=== PATIENT | male | born 1965 | race Caucasian/White ===

== ENCOUNTER 2017-11-09 08:34 | Outpatient (RCR) | payer OTHER, SELFPAY | END 2017-11-27 23:59 | LOC: NS 08:34 | PROVIDERS: Family Provider Family Medicine; PCP Family Medicine; Visit Provider Nurse Practitioner Family | DX: E78.2 Mixed hyperlipidemia (principal); E66.9 Obesity, unspecified; Z68.30 Body mass index [BMI] 30.0-30.9, adult; Z71.3 Dietary counseling and surveillance | CPT/HCPCS: 97802 ==

== ENCOUNTER 2017-12-28 15:30 | Outpatient (RCR) | payer OTHER, SELFPAY | END 2017-12-28 23:59 | LOC: NS 15:30 | PROVIDERS: Family Provider Family Medicine; PCP Family Medicine; Visit Provider Nurse Practitioner Family | DX: E78.2 Mixed hyperlipidemia (principal); E66.9 Obesity, unspecified; Z68.30 Body mass index [BMI] 30.0-30.9, adult; Z71.3 Dietary counseling and surveillance | CPT/HCPCS: 97803 ==

== ENCOUNTER 2018-01-10 15:03 | Outpatient (RCR) | payer OTHER, SELFPAY | END 2018-01-27 23:59 | LOC: NS 15:03 | PROVIDERS: Family Provider Family Medicine; PCP Family Medicine; Visit Provider Nurse Practitioner Family | DX: E66.9 Obesity, unspecified (principal); Z68.30 Body mass index [BMI] 30.0-30.9, adult; E78.2 Mixed hyperlipidemia; Z71.3 Dietary counseling and surveillance | CPT/HCPCS: 97803 ==

== ENCOUNTER → 2018-01-26 08:52 | Outpatient (CLI) | payer OTHER, SELFPAY ==
--- NOTE | 2018-01-26 08:54 | RAD_ITS ---
STUDY: X-RAY - RIGHT KNEE REASON FOR EXAM: Male, 53 years old. Pain. Previous surgery. TECHNIQUE: 4 view(s) of the knee. COMPARISON: None. FINDINGS: Normal visualized distal femur. Normal visualized proximal tibia and fibula. Normal proximal tibiofibular articulation. There is no demonstrated fracture. There are changes from previous ACL graft repair. There is mild degenerative arthrosis of the medial femorotibial compartment. Normal lateral femorotibial compartment. Normal patellofemoral articulation. There is no demonstrated joint effusion. The soft tissue structures are unremarkable. RAD/Knee 4 or More Views IMPRESSION: No acute fracture or dislocation. Surgical changes from previous ACL graft. Minimal degenerative changes. Electronically Signed: Ori Viera MD at 9:52 EDT , Service support ,
== END ==
PROVIDERS: Family Provider Family Medicine; PCP Family Medicine; Visit Provider Orthopaedic Surgery
DX: M25.561 Pain in right knee (principal)
CPT/HCPCS: 73564

== ENCOUNTER → 2018-02-03 08:18 | Outpatient (CLI) | payer OTHER, SELFPAY ==
[2018-02-03 09:19] LABS: AST(SGOT) 62 U/L (15-37); Alanine Aminotransfer ALT/SGPT 103 U/L (16-61); Albumin, Serum 3.6 g/dL (3.2-5.0); Alkaline Phosphatase 71 U/L (45-117); Bilirubin, Direct 0.13 mg/dL (0.00-0.30); Cholesterol 174 mg/dL (200); Globulin 3.3 g/dL (2.2-4.2); High Density Lipoprotein 36 mg/dL; Protein, Total 6.9 g/dL (6.4-8.2); Triglycerides 260 mg/dL; Very Low Density Lipoprotein 52 mg/dL (5-40)
== END ==
PROVIDERS: Family Provider Family Medicine; PCP Family Medicine; Visit Provider Nurse Practitioner Family
DX: E78.5 Hyperlipidemia, unspecified (principal); Z79.899 Other long term (current) drug therapy
CPT/HCPCS: 36415; 80061; 80076

== ENCOUNTER → 2018-03-08 09:40 | Outpatient (CLI) | payer OTHER, SELFPAY ==
[2018-03-08 12:23] LABS: Absolute Lymphocyte Count 2.48 X10^3/ul (0.83-4.51); Absolute Neutrophil Count 2.5 X10^3/uL (2.0-7.7); Basophil# 0.01 X10^3/uL; Basophil% 0.2 % (0-1); Eosinophil# 0.13 X10^3/uL; Eosinophils% 2.4 % (0-5); Hematocrit 52.3 % (40-54); Hemoglobin 18.2 g/dl (13.0-16.5); Lymphocyte # 2.48 X10^3/ul (4.0); Lymphocyte % 45.3 % (19-41); Mean Corp Hgb Conc 34.8 g/gl (32-36); Mean Corpuscular Hgb 32.2 pg (27.0-32.0); Mean Corpuscular Volume 92.4 fL (80-94); Mean Platelet Vol. 10.6 fl (6.2-12.0); Monocyte# 0.41 X10^3/uL; Monocyte% 7.5 % (0-10); Neutrophil # 2.45 X10^3/uL (2.7-7.7); Neutrophil % 44.6 % (47-70); Platelet Count 166 K/mm3 (150-450); RBC Distribution Width CV 12.1 % (11.6-14.6); RBC Distribution Width SD 40.5 fl (35.1-43.9); Red Blood Count 5.66 M/mm3 (4.6-6.2); White Blood Count 5.5 K/mm3 (4.4-11.0)
[2018-03-08 12:29] LABS: POSITIVE COUNT NO; POSITIVE DIFFERENTIAL NO; POSITIVE MORPHOLOGY NO
[2018-03-08 12:35] LABS: ALB/GLOB Ratio 1.2 RATIO (0.9-2.4); AST(SGOT) 42 U/L (15-37); Alanine Aminotransfer ALT/SGPT 91 U/L (16-61); Alkaline Phosphatase 68 U/L (45-117); Anion Gap 11 (5-15); BUN 11 mg/dL (7-18); BUN/Creat Ratio 11.2 RATIO (10-20); Calcium,Total 8.6 mg/dL (8.5-10.1); Chloride 104 mmol/L (98-107); Creatinine, Serum 0.98 mg/dL (0.70-1.30); EST Glomerular Filtration Rate 85 mL/min (>60); Est Glom Filt Rate - Afr Amer 102 mL/min (>60); Ferritin 79 ng/mL (26-388); Globulin 3.3 g/dL (2.2-4.2); Glucose 96 mg/dL (74-106); Iron 155 ug/dL (65-175); PSA,Total - Annual Screen 0.97 ng/mL (0.00-4.00); Potassium 4.2 mmol/L (3.5-5.1); Protein, Total 7.3 g/dL (6.4-8.2); Sodium Level 142 mmol/L (136-145)
== END ==
PROVIDERS: Family Provider Family Medicine; PCP Family Medicine; Visit Provider Family Medicine
DX: Z00.01 Encounter for general adult medical examination with abnormal findings (principal); R74.8 Abnormal levels of other serum enzymes; E83.119 Hemochromatosis, unspecified; I10 Essential (primary) hypertension; Z78.9 Other specified health status; Z12.5 Encounter for screening for malignant neoplasm of prostate
CPT/HCPCS: 36415; 80053; 82728; 83540; 84153; 85025; G0103

== ENCOUNTER → 2018-10-26 06:21 | Outpatient (CLI) | payer OTHER, SELFPAY ==
[2018-09-27 11:11] VITALS: BMI 32.1
--- NOTE | 2018-10-26 08:55 | STRESSREP ---
Stress Test Report Date: 10-26-18 Procedure: Exercise tolerance test/imaging study Indications: Chest pain; CAD; PCI Consent: Per the patient Procedure: The patient exercised on a Dariel protocol for 11 minutes completing Stage III and 2 minutes of Stage IV achieving a peak heart rate of 142 bpm (86 % predicted maximal heart rate) with a peak blood pressure 168/90 mmHg and a peak MET capacity of 13 METs. The baseline ECG demonstrated normal sinus rhythm. The peak exercise ECG demonstrated approximately 1-[address] segment depression in leads II, III, aVF and approximately [address] segment depression in lead V6 with resolution towards baseline beginning less than 1 minute in recovery. There were occasional PACs in recovery. The functional capacity was considered good. There was no complaint of chest discomfort during exercise or recovery. The examination was discontinued secondary to leg discomfort. Impression: 1. Technically adequate (percent predicted maximal heart rate greater than 85%) exercise tolerance test 2. Peak exercise ECG demonstrated approximately 1-[address] segment depression in leads II, III, aVF, and approximately [address] segment depression in lead V6 with resolution towards baseline beginning less than 1 minute in recovery 3. There were occasional PACs in recovery 4. Nuclear images pending Myocardial perfusion imaging study: Technique: The patient was injected with 13.7 mCi of technetium 99m Cardiolite and subsequently rest SPECT Cardiolite nuclear imaging was obtained in the horizontal long, vertical long, and short axis views. The patient exercised on a Dariel protocol for 11 minutes completing Stage III and 2 minutes of Stage IV achieving a peak heart rate of 142 bpm (86 % predicted maximal heart rate) with a peak blood pressure 168/90 mmHg and a peak MET capacity of 13 METs. The patient was injected with 44.4 mCi of technetium 99m Cardiolite and subsequently stress SPECT Cardiolite nuclear imaging was obtained in the horizontal long, vertical long, and short axis views. A gated Cardiolite study at peak stress was obtained. Interpretation: Rest and stress SPECT Cardiolite nuclear imaging status post realignment, normalization, and attenuation correction, demonstrates the appearance of relative uniform tracer uptake and myocardial perfusion appearing within normal limits. There is end systolic thickening and brightening. The gated Cardiolite study demonstrates myocardial thickening and inward wall motion. The reported LVEF is 62 %. Impression: 1. Rest and stress SPECT Cardiolite nuclear imaging demonstrate relative uniform tracer uptake and myocardial perfusion appearing within normal limits. 2. The gated Cardiolite study reports an LVEF of 62 %. This note was generated with [employer] software. It may contain incorrect words, spelling, and punctuation that were not noted in checking the note before signing.
== END ==
PROVIDERS: Family Provider Family Medicine; PCP Family Medicine; Referring Provider Internal Medicine Cardiovascular Disease; Visit Provider Internal Medicine Cardiovascular Disease
DX: I25.10 Atherosclerotic heart disease of native coronary artery without angina pectoris (principal); R07.9 Chest pain, unspecified; Z98.61 Coronary angioplasty status
CPT/HCPCS: 78452; 93017; A9500; A4216

== ENCOUNTER 2018-11-06 09:04 | Day surgery (SDC) | payer OTHER, SELFPAY ==
[2018-09-27 11:11] VITALS: BMI 32.1
[2018-11-01 10:29] VITALS: BMI 32.1
--- NOTE | 2018-11-01 10:45 | RAD_ITS ---
STUDY: X-RAY CHEST REASON FOR EXAM: Male, 53 years old. Chest pain and abnormal stress. TECHNIQUE: PA and lateral views of the chest. COMPARISON: Prior comparison studies are not available for review at this time. FINDINGS: There is mild elevation of the right hemidiaphragm. The lungs are clear and expanded. There is no demonstrated pleural abnormality. Normal size heart. Normal mediastinum and fred. Normal visualized pulmonary arteries. Normal visualized aortic arch and descending thoracic aorta. Normal visualized thoracic spine. Normal visualized ribs, clavicles, and shoulders. There is no demonstrated abnormality of the visualized soft tissue structures of the upper abdomen. RAD/Chest PA and Lateral IMPRESSION: No active pulmonary disease. Electronically Signed: Gregorio Villeda MD at 10:57 EDT Tel , Service support ,
[2018-11-01 12:23] LABS: Hematocrit 53.1 % (40-54); Mean Corp Hgb Conc 35.8 g/gl (32-36); Mean Corpuscular Hgb 32.1 pg (27.0-32.0); Mean Corpuscular Volume 89.7 fL (80-94); Mean Platelet Vol. 10.5 fl (6.2-12.0); Platelet Count 160 K/mm3 (150-450); RBC Distribution Width SD 38.6 fl (35.1-43.9); Red Blood Count 5.92 M/mm3 (4.6-6.2); White Blood Count 5.6 K/mm3 (4.4-11.0)
[2018-11-01 12:32] LABS: International Normalized Ratio 0.9; Prothrombin Time (Protime)PT. 12.4 SECONDS (11.7-14.9)
[2018-11-01 12:33] LABS: Anion Gap 9 (5-15); BUN 12 mg/dL (7-18); BUN/Creat Ratio 13.1 RATIO (10-20); Calcium,Total 9.1 mg/dL (8.5-10.1); Chloride 103 mmol/L (98-107); Creatinine, Serum 0.92 mg/dL (0.70-1.30); EST Glomerular Filtration Rate 91 mL/min (>60); Est Glom Filt Rate - Afr Amer 110 mL/min (>60); Glucose 95 mg/dL (74-106); Partial Thromboplast Time 25.2 Seconds (24.1-36.2); Sodium Level 138 mmol/L (136-145)
[2018-11-01 12:37] LABS: Scan Indicated on CBC? Y/N NO
--- NOTE | 2018-11-02 08:47 | HP_ITS ---
HPI HPI Surgical H&P: Yes Details: STEFANIE CARLSON, is a 52 M who presents to the office today for a cardiovascular outpatient follow-up. Patient has a history of coronary artery disease status post PTCA/stent to the RCA in August 2003, hyperlipidemia, and moderate SAVANNAH. After last office appointment on 10/25/18, he underwent a stress test to further evaluate of his chest pain. This showed ST segment depression in leads II, III, aVF and approximately [address] segment depression in lead V6 with resolution towards baseline beginning less than 1 minute into recovery. Because of this, he will undergo a left heart catheterization for further evaluation. He continues with intermittent chest tightness. He states occasional shortness of breath with activity. He denies lightheadedness, dizziness, syncope, or presyncope. He denies any edema or claudication. He denies any orthopnea, PND, fever, chills, blood in urine, blood in stool, myalgia, or worsening fatigue. He states having an episode of feeling very flushed and warm while at a meeting. He states that those present in room noticed that he looked very red. This lasted for less than a minute and completely resolved. He attributes this to hypoglycemia as he has been doing intermittent fasting to help improve his overall weight. 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 Accompanied by: None Is patient in pain?: No Allergies ciprofloxacin [From Cipro] Allergy (Verified 11/01/18 09:50) Rash ciprofloxacin HCl [From Cipro] Allergy (Verified 11/01/18 09:50) Rash naproxen [From Naprosyn] Allergy (Verified 11/01/18 09:50) Hives amoxicillin [From Augmentin] Adverse Reaction (Severe, Verified 11/01/18 09:50) Hives clavulanic acid [From Augmentin] Adverse Reaction (Severe, Verified 11/01/18 09:50) Hives codeine Adverse Reaction (Intermediate, Verified 11/01/18 09:50) Nausea CIPRO Allergy (Uncoded 11/01/18 09:50) Rash Medications Duloxetine Hcl [Cymbalta] 60 mg PO DAILY 07/22/15 [History Confirmed 11/01/18] Aspirin [Aspirin, Baby] 81 mg PO DAILY@0800 07/26/16 [History Confirmed 11/01/18] nitroglycerin 0.4 mg sublingual tablet 0.4 mg SUBLINGUAL Q5M PRN 10/04/17 [History Confirmed 11/01/18] lisinopril 20 mg tablet 20 mg PO DAILY #90 tab 05/03/18 [Rx Confirmed 11/01/18] metoprolol tartrate 25 mg tablet 25 mg PO BID #180 tab 05/03/18 [Rx Confirmed 11/01/18] emollient combination no.43 topical cream 1 applic TOPICAL DAILY PRN g 09/27/18 [History Confirmed 11/01/18] atorvastatin 80 mg tablet 80 mg PO QHS #30 tab 11/01/18 [Rx] clopidogrel 75 mg tablet 75 mg PO DAILY #30 tab 11/01/18 [Rx Confirmed 11/01/18] PFSH Medical History Chest pain (Acute) Presence of stent in coronary artery (Chronic ~09/15/03) Essential hypertension (Chronic) Obesity (BMI 30.0-34.9) (Chronic) Hyperlipidemia (Chronic) Atherosclerotic heart disease of [place] coronary artery without angina pectoris (Chronic) Chest discomfort (Acute) CAD (coronary artery disease) (Inactive) Surgical History History of percutaneous transluminal coronary angioplasty (Chronic ~09/15/03) H/O reconstruction of anterior cruciate ligament tear (Resolved) History of bilateral inguinal hernia repair (Resolved ~1976) History of tonsillectomy and adenoidectomy (Resolved ~1970) Status post anal fissurectomy (Resolved) Family History Father CAD (coronary artery disease) Diabetes HLD (hyperlipidemia) Hypertension Mother Breast cancer Cancer liver cancer Sister Lichen sclerosus Social History Smoking Status: Former smoker how long ago did patient quit smokin alcohol intake: current alcohol intake frequency: 0-2 drinks per day Alcohol type: beer, wine, hard liquor substance use type: does not use caffeine: Yes Type: coffee Number of servings: 1 what type of physical activity do you participate in: none seatbelt use: always do you feel safe at home: Yes ROS Const Const: Negative for fatigue, weakness, frequent falls, excessive sweating, weight gain or weight loss Eyes Eyes: Negative for transient loss of vision, blurry vision or change in vision ENT ENT: Negative for dizziness or balance problems Cardio Chest Pain: Yes Character: squeezing Onset: exercise Location: left chest Duration: brief Palpitations: No Edema: None Muscle aches with walking: None Resp Respiratory: Positive for SOB with activity (occasional); negative for SOB at rest Additional Details: CPAP @ night GI GI: Negative vomiting or vomiting blood/hematemesis : Negative for hematuria Musc Musc: Negative for balance problems Skin Skin: Negative non-healing lesions or rash Neuro Neuro: Negative for dizziness, frequent falls, weakness or blurry vision Fausto Hematologic/Lymphatic: Negative for easy bleeding Endo Endo: Negative for fatigue or excessive sweating Psych Psych: Negative for anxiety or depression Allergy Allergy/Immunology: Negative for rash Cardiology Exam Const Appearance: cooperative, healthy appearing, comfortable and no acute distress Nutritional Appearance: well nourished and obese Orientation: alert, awake and oriented x3 Head Head: normal to inspection Ears: hearing grossly normal bilaterally Nose: external nose normal Face and Sinus: face symmetric Mouth: oral mucosae normal Eyes General: appearance normal, both eyes and all related structures Eyelids: eyelids normal EOM: EOM intact bilaterally Neck Neck: normal visual inspection and no JVD Carotids: normal carotid upstroke Chest Chest inspection: normal inspection of the chest, symmetric chest movement and normal respiratory effort; negative cough Auscultation: Bilateral: Clear to Auscultation Cardio Rate: regular rate Rhythm: regular rhythm Heart sounds: S1 normal and S2 normal; negative rub, gallop or murmur GI GI: normal to inspection and obese Neuro General: alert, awake, oriented x3 and CN's II-XI intact bilaterally Skin Skin: no rashes or lesions noted Extremities Pulses: Normal: Right Posterior Tibial Pulse, Left Posterior Tibial Pulse, Right Radial Pulse, Left Radial Pulse Lower Extremity Edema: None: Bilateral Psych Psychological: normal affect Assessment & Plan 1. Atherosclerosis of [place] coronary artery of [place] heart without angina pectoris I25.10 Plan With patient's ongoing chest pain and recent stress test results, there is concern for progressive coronary artery disease. He will proceed left heart catheterization for further evaluation. Due to beginning Plavix less than 7 days he will begin a loading dose with 300 mg on day 1 and begin Plavix 75 mg p.o. daily on day 2. Further recommendation will be made based on results of his heart catheterization. 2. Presence of stent in coronary artery Z95.5 PTCA/stent of the prox RCA and posterolateral branch of the RCA 09/15/03 Plan This will be reevaluated during his upcoming heart catheterization. He will continue with current medications. 3. Essential hypertension I10 Plan Patient's blood pressure is well-controlled. We will continue to monitor this. We will not make any medication regimen changes. 4. Mixed hyperlipidemia E78.2 Plan Lipid panel from January 2018 showed cholesterol: 174, HDL: 36, LDL: 86, and triglyceride: 260. He will continue the current high-dose statin medication. Plan Detail Other Medications New: clopidogrel 75 mg PO DAILY 30 tabs 11RF Additional Comments Thank you for allowing us to participate in the patient's plan of care, if you have any questions please do not hesitate to call. This note was generated using a voice recognition system and there may be incorrect words, spelling, or punctuation that were not noted upon reviewing the office note prior to saving. Coding Level of Care Code Off vis,est,level 3 Diagnoses Atherosclerosis of [place] coronary artery of [place] heart without angina pectoris I25.10 ??[place] vs. transplanted heart: [place] heart Presence of stent in coronary artery Z95.5 Essential hypertension I10 Mixed hyperlipidemia E78.2 ??Hyperlipidemia type: mixed hyperlipidemia Coding Level of Care Code Off vis,est,level 3 Diagnoses Atherosclerosis of [place] coronary artery of [place] heart without angina pectoris I25.10 ??[place] vs. transplanted heart: [place] heart Presence of stent in coronary artery Z95.5 Essential hypertension I10 Mixed hyperlipidemia E78.2 ??Hyperlipidemia type: mixed hyperlipidemia Supplemental Info Supplemental Information Transthoracic echocardiogram: 02/14/2006 1. Normal left ventricular size, wall motion and systolic function. 2. Estimated LVEF approximately 60%. 3. Mild concentric left ventricular hypertrophy. 4. Trivial mitral regurgitation. 5. Trivial tricuspid regurgitation. Stress test: 10/26/2018 The patient exercised on a Dariel protocol for 11 minutes completing Stage III and 2 minutes of Stage IV achieving a peak heart rate of 142 bpm (86 % predicted maximal heart rate) with a peak blood pressure 168/90 mmHg and a peak MET capacity of 13 METs. The baseline ECG demonstrated normal sinus rhythm. The peak exercise ECG demonstrated approximately 1-[address] segment depression in leads II, III, aVF and approximately [address] segment depression in lead V6 with resolution towards baseline beginning less than 1 minute in recovery. There were occasional PACs in recovery. The functional capacity was considered good. There was no complaint of chest discomfort during exercise or recovery. The examination was discontinued secondary to leg discomfort. Impression: 1. Technically adequate (percent predicted maximal heart rate greater than 85%) exercise tolerance test 2. Peak exercise ECG demonstrated approximately 1-[address] segment depression in leads II, III, aVF, and approximately [address] segment depression in lead V6 with resolution towards baseline beginning less than 1 minute in recovery 3. There were occasional PACs in recovery 4. Nuclear images pending Myocardial perfusion imaging study: Technique: The patient was injected with 13.7 mCi of technetium 99m Cardiolite and subsequently rest SPECT Cardiolite nuclear imaging was obtained in the horizontal long, vertical long, and short axis views. The patient exercised on a Dariel protocol for 11 minutes completing Stage III and 2 minutes of Stage IV achieving a peak heart rate of 142 bpm (86 % predicted maximal heart rate) with a peak blood pressure 168/90 mmHg and a peak MET capacity of 13 METs. The patient was injected with 44.4 mCi of technetium 99m Cardiolite and subsequently stress SPECT Cardiolite nuclear imaging was obtained in the horizontal long, vertical long, and short axis views. A gated Cardiolite study at peak stress was obtained. Interpretation: Rest and stress SPECT Cardiolite nuclear imaging status post realignment, normalization, and attenuation correction, demonstrates the appearance of relative uniform tracer uptake and myocardial perfusion appearing within normal limits. There is end systolic thickening and brightening. The gated Cardiolite study demonstrates myocardial thickening and inward wall motion. The reported LVEF is 62 %. Impression: 1. Rest and stress SPECT Cardiolite nuclear imaging demonstrate relative uniform tracer uptake and myocardial perfusion appearing within normal limits. 2. The gated Cardiolite study reports an LVEF of 62 %. Cardiac catheterization: 09/15/2003 Left main coronary artery reported is free of significant disease Left anterior descending coronary artery reporting does have a mid 30 to 40% plaque Left circumflex coronary artery reporting as having an AV groove branch with 40 to 50% stenosis Intermediate ramus coronary artery reporting as having mild irregularities Right coronary artery reported as having proximal 90% stenosis and the posterolateral branch with an eccentric 75% stenosis Left ventricle reported as normal with an LVEF of 75% PCI: 09/15/2003 PCI/stent of the proximal RCA and PCI/stent of the posterior lateral branch Labs LDL Cholesterol 86 mg/dL (0-130) 02/03/18 HDL Cholesterol 36 mg/dL (40-) L 02/03/18 Triglycerides 260 mg/dL (-199) H 02/03/18 VLDL Cholesterol 52 mg/dL (5-40) H 02/03/18 Diagnostics Electrocardiogram 09/27/18 Stress Test Nuclear Medicine 10/26/18 Stress Test 10/26/18 Chest X-Ray 11/01/18
[2018-11-05 10:27] VITALS: BMI 31.6
[2018-11-06] VITALS (28 sets, daily range): BP systolic 90–160; BP diastolic 57–91; PULSE 59–90; RESP 12–24; TEMP 35.6–36.7; O2SAT 90–100; BMI 32.1
--- NOTE | 2018-11-06 11:23 | CL.I_ITS ---
Patient Name: STEFANIE CARLSON Study Date: 11/06/2018 Performing: Wayne Paula MD Ht: 70.86 inches 180 cm : 1965 Wt: 227.08 lbs 103 kg Age: 53 Gender: male BSA: 2.22 PROCEDURE(S) PERFORMED [id number] W OR WO PTCA, SINGLE CORONARY ARTERY CLINICAL PROFILE AND CO-MORBIDITIES Indications: Worsening Angina, New Onset Angina <= 2 months, Stable Known CAD Heart Failure: None Stress/Imaging Standard Exercise Stress Test: Yes Result: Positive Stress Test with SPECT MPI: Po sitive Low Risk Angina Classification Anginal Classification w/in 2 Weeks: CCS II CAD Presentations: Stable angina. Unstable angina. Comorbidities/Risk Factors: Hypertension Dyslipidemia Prior PCI CONCLUSIONS Successful PTCA/ISRRAEL proximal PL branch of RCA with a 3.0 x 12 Promus Synergy, post dilated throughout both stents with a 3.25 x 8 NC Balloon; 85%-->0%, no dissection. 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 Kelly Manual sheath removal given pt's shallow groin. Consider PCI of mid moderately calcified LCX if pt has recurrent anginal symptoms. DESCRIPTION OF PROCEDURE The patient arrived to the procedure lab. The risks and benefits of the procedure as well as a full d escription of our services here and current unavailability of surgical backup were fully explained to the patient and/or their significant other prior to the catheterization. The Timeout was completed, verifying the correct patient and procedure. The patient's procedural site was prepped and draped in the usual fashion. Local anesthetic was given subcutaneously to right groin region with Lidocaine 2% Using a modified Seldinger technique,arterial access was obtained via the right femoral artery, a 4Fr sheath was inserted Left Coronary Artery selective angiography was performed in multiple views using a 4 Fr. JL5 catheter. Right Coronary Artery selective angiography was then performed in multiple vie ws using a 4 Fr. 3DRC catheter. Left Ventriculography was performed in CULLEN projection using a 4 Fr. P igtail catheter. LV to AO pullback pressures were then recorded.The images were reviewed and options discussed. A decision was then made to proceed with an Intervention, IVUS or other adjunc t procedure. Arterial sheath was exchanged for a 6 Fr Sheath. HS II Guide catheter was inserted and engaged in to the RCA. [employer] Pepperell Guide wire was advanced to the RCA to the PL Branch. Emerge 2.0 x 8 Balloon catheter was inserted. PTCA balloon inflated at 6 atms for 13 secs. Balloon catheter was advanced ac ross lesion in the PL Branch proximal Angiogram performed post balloon dilatation. PTCA balloon infl ated at 6 atms for 8 secs. Synergy 3.0 x 12 Drug Eluting stent was inserted. Drug Eluting stent was a dvanced across the lesion in the PL Branch proximal Angiogram performed pre stent deployment. Angiog david performed post stent deployment. NC Emerge 3.25 x 8 Balloon catheter was inserted. Balloon cathet er was advanced across lesion in the PL Branch proximal Angiogram performed post balloon dilatation. Angiogram performed post balloon dilatation. The arterial sheath was sutured in place and capped INTERVENTION INFORMATION LESION SITE: RPL (1st) Lesion Complexity: Non-High/Non-C, lesion at bifurcation: No, thrombus present: No, lesion length: 12 mm, culprit lesion: Yes Pre Stenosis: 85 % Pre intervention CAT flow: 3 PROCEDURE: Drug Eluting Stent with pre and post dilatation Post Stenosis: 0 % Post intervention CAT flow: 3 Lesion Devices: Medtronic 6 Fr HSII 100cm Guide Catheter Mathur .014 BMW Pepperell Straight 190cm Tñoo Sci EMERGE MR 2.00x08 BALLOON Toño Sci Synergy MR ISRRAEL 3.00x12 Toño Sci NC EMERGE MR 3.25x08 BALLOON COMPLICATIONS No Complications PROCEDURE MEDICATIONS Versed 1 mg IV Versed 1 mg IV Baby Aspirin (81mg) 1 Tabs PO @ 11/06/2018 09:19:25 Heparin 6000 unit(s) IV 11/06/2018 10:46:24 Nitro 200 mcg IC 11/06/2018 10:48:08 Nitro 200 mcg IC 11/06/2018 10:48:08 IV Bolus: .9 NaCl 500 ml total 11/06/2018 10:46:54 SUMMARY OF HEMODYNAMIC DATA Time AIR REST ECG 09:23:39 AO 115/82 (98) SA 10:32:47 LV 139/2, 28 10:40:49 LV 132/-2, 16 10:40:55 LV 139/-5, 19 10:42:50 LV 148/-6, 21 10:42:56 LVp 140/-6, 16 10:43:02 AO 140/85 (111) 10:43:07 Signed By Wayne Paula MD On 11/06/2018 11:22:49 Wayne Paula MD
[2018-11-06 11:26] LABS: ACT Activated Clotting Time 191 sec (74-137)
--- NOTE | 2018-11-06 11:38 | EKG12_ITS ---
Test Reason : POST PCI Blood Pressure : / mmHG Vent. Rate : 061 BPM Atrial Rate : 061 BPM P-R Int : 186 ms QRS Dur : 086 ms QT Int : 434 ms P-R-T Axes : 052 066 019 degrees QTc Int : 436 ms Normal sinus rhythm Normal ECG When compared with ECG of 18-MAY-2007 06:40, MANUAL COMPARISON REQUIRED, DATA IS UNCONFIRMED Confirmed by NASREEN ANTONIO, HOMERO ([id number]), film editor JANNETH CONWAY ([id number]) on 11/12/2018 5:23:50 PM Referred By: Emanuel Kelly Confirmed By:HOMERO DOWNEY MD
[2018-11-06] MEDS: 0.9% Normal Saline 1,000 ML 150 ML IV (12:31)
[2018-11-06 15:50] LABS: ACT Activated Clotting Time 136 sec (74-137)
--- NOTE | 2018-11-06 18:58 | CL.D_ITS ---
Patient Name: STEFANIE CARLSON Study Date: 11/06/2018 Performing: Emanuel Kelly MD Ht: 71 inches 180 cm : 1965 Wt: 227.4 lbs 103 kg Age: 53 Gender: male BSA: 2.22 PROCEDURE(S) PERFORMED [id number]-IUL/COR/LV [id number]-QVL W OR WO PTCA, SINGLE CORONARY ARTERY CLINICAL PROFILE AND INDICATIONS Indications: Worsening Angina, New Onset Angina <= 2 months, Stable Known CAD Heart Failure: None Stress/Imaging Standard Exercise Stress Test: Yes Result: PositiveStress Test with SPECT MPI: Pos itive Low Risk Angina Classification Anginal Classification w/in 2 Weeks: CCS II CAD Presentations: Stable angina. Unstable angina. Comorbidities/Risk Factors: Hypertension Dyslipidemia Prior PCI CONCLUSIONS Elevated Left Ventricular End Diastolic Pressure Normal LV size, wall motion,and systolic function LVEF: by LV gram 65 % Cahto Multivessel CAD Mitral Valve Insufficiency Trace (PVC induced) RECOMMENDATIONS Risk factor modification Medical therapy Referred for immediate PCI DESCRIPTION OF PROCEDURE The patient arrived to the procedure lab. The risks and benefits of the procedure as well as a full d escription of our services here and current unavailability of surgical backup were fully explained to the patient and/or their significant other prior to the catheterization. The Timeout was completed, verifying the correct patient and procedure. The patient's procedural site was prepped and draped in the usual fashion. Local anesthetic was given subcutaneously to right groin region with Lidocaine 2%. Using a modified Seldinger technique, arterial access was obtained via the right femoral artery, a 4 Fr sheath was inserted Left Coronary Artery selective angiography was performed in multiple views us ing a 4 Fr. JL5 catheter. Right Coronary Artery selective angiography was then performed in multiple views using a 4 Fr. 3DRC catheter. Left Ventriculography was performed in CULLEN projection using a 4 Fr . Pigtail catheter. LV to AO pullback pressures were then recorded.The arterial sheath was sutured in place and capped CORONARY ANGIOGRAPHY DOMINANCE: Right Dominant LEFT HEART ASSESSMENT Left Ventricular Ejection Fraction: by LV Gram 65 % Normal LV wall motion Elevated Left Ventricular End Diastolic Pressure LVEDP: 16 mmHg LEFT MAIN: Angiographically normal LEFT ANTERIOR DECENDING ARTERY: Mild luminal irregularities PROX LAD: Mild calcification CIRCUMFLEX ARTERY: PROX CIRC: Moderate calcification MID CIRC: Eccentric: 75 % Stenosis RAMUS: Mild luminal irregularities RIGHT CORONARY ARTERY: PROX RCA: Previously placed stent is patent RIGHT AV SEGMENT: Previously placed stent is patent, proximal: pre stent: 85 % Stenosis VALVE FINDINGS: Normal Aortic Valve function Mitral Valve Insufficiency - Trace (PVC induced) AORTIC ROOT: Angiographically normal COMPLICATIONS No Complications PROCEDURE MEDICATIONS Versed 1 mg IV Versed 1 mg IV Baby Aspirin (81mg) 1 Tabs PO @ 11/06/2018 09:19:25 Heparin 6000 unit(s) IV 11/06/2018 10:46:24 Nitro 200 mcg IC 11/06/2018 10:48:08 Nitro 200 mcg IC 11/06/2018 10:48:08 IV Bolus: .9 NaCl 500 ml total 11/06/2018 10:46:54 SUMMARY OF HEMODYNAMIC DATA Time AIR REST ECG 09:23:39 AO 115/82 (98) SA 10:32:47 LV 139/2, 28 10:40:49 LV 132/-2, 16 10:40:55 LV 139/-5, 19 10:42:50 LV 148/-6, 21 10:42:56 LVp 140/-6, 16 10:43:02 AOp 140/85 (111) 10:43:07 Signed By Emanuel Kelly MD On 11/06/2018 6:57:06 PM Emanuel Kelly MD
--- NOTE | 2018-11-06 19:43 | PN.CARD_ITS ---
Subjectve: Patient is now status post diagnostic cardiac catheterization and subsequent RCA PCI/ISRRAEL. He appears to be resting comfortably at this time. Objective: Vital Signs Temp Pulse Resp BP Pulse Ox 96.1 F L 82 24 H 160/84 H 94 11/06/18 16:00 11/06/18 19:00 11/06/18 19:00 11/06/18 19:00 11/06/18 19:00 Oxygen Delivery Method Room Air Weight: 230 lb 6.129 oz Body Mass Index (BMI) 32.1 Intake and Output for Last 24 Hours 11/04/18 11/05/18 11/06/18 23:59 23:59 23:59 Intake Total 1740 / 1740 Output Total 1900 / 1900 Balance -160 / -160 General: Awake, Alert, Oriented x 3, Cooperative, No Acute Distress HEENT: Atraumatic, Normocephalic, PERRL, EOMI, Sclera Non Icteric Oral: Moist Mucosa Neck: Supple, Good ROM, No JVD Lungs: Clear to auscultation Cardiovascular: Regular Rhythm, Normal S1, Normal S2 Vascular: Normal Femoral Pulses Abdomen: Bowel Sounds Present, Soft, Non Tender Extremities: No Cyanosis, No Clubbing, No edema Neurological: No Focal Motor or Sensory Deficit Psych/Mental Status: Appropriate Rhythm: Sinus rhythm Cardiac Cath: Please see official report PCI: Please see official report Medical Necessity - Tobacco Use Smoking Status: Former smoker Assessment/Plan 1. CAD status post RCA PTCA/stent-remote and recent The patient is now status post reevaluation with diagnostic cardiac forrest terization. He was found to have progression of his RCA disease proximal to his distal stent. He has subsequently undergone repeat PTCA/ISRRAEL to that area with good angiographic results. The patient will continue to be monitored. He will continue medical therapy. We will continue with future outpatient cardiovascular follow-up. He will be recommended for outpatient cardiac rehabilitation therapy as well. 2. Hyperlipidemia The patient will continue lipid-lowering therapy. 3. Hypertension The patient will continue antihypertensive therapy. Comment: The patient's case was discussed and reviewed with the patient and his spouse. This note was generated with [employer] ([employer]ation software. It may contain incorrect words, spelling, and punctuation that were not noted in checking the note before signing.
[2018-11-06] MEDS: Metoprolol Tartrate 25 MG Tablet PO (21:25)
[2018-11-06] MEDS: Atorvastatin Calcium 80 MG Tablet PO (21:25)
[2018-11-07] VITALS (12 sets, daily range): BP systolic 115–145; BP diastolic 71–94; PULSE 64–80; RESP 10–24; TEMP 36.7–36.8; O2SAT 90–96; BMI 31.7
[2018-11-07 05:18] LABS: Hematocrit 49.4 % (40-54); Hemoglobin 17.7 g/dl (13.0-16.5); Mean Corp Hgb Conc 35.8 g/gl (32-36); Mean Corpuscular Hgb 31.3 pg (27.0-32.0); Mean Corpuscular Volume 87.3 fL (80-94); Mean Platelet Vol. 10.1 fl (6.2-12.0); Platelet Count 167 K/mm3 (150-450); RBC Distribution Width CV 12.1 % (11.6-14.6); RBC Distribution Width SD 38.5 fl (35.1-43.9); Red Blood Count 5.66 M/mm3 (4.6-6.2); White Blood Count 6.5 K/mm3 (4.4-11.0)
[2018-11-07 05:24] LABS: Scan Indicated on CBC? Y/N NO
[2018-11-07 05:45] LABS: Anion Gap 8 (5-15); BUN 13 mg/dL (7-18); BUN/Creat Ratio 15.4 RATIO (10-20); Calcium,Total 8.5 mg/dL (8.5-10.1); Chloride 106 mmol/L (98-107); Cholesterol 165 mg/dL (200); Creatinine, Serum 0.84 mg/dL (0.70-1.30); EST Glomerular Filtration Rate 100 mL/min (>60); Est Glom Filt Rate - Afr Amer 121 mL/min (>60); Estimated Creatinine Clearance 105.83 ml/min; Glucose 106 mg/dL (74-106); High Density Lipoprotein 35 mg/dL; Potassium 4.2 mmol/L (3.5-5.1); Sodium Level 140 mmol/L (136-145); Triglycerides 218 mg/dL; Very Low Density Lipoprotein 44 mg/dL (5-40)
--- NOTE | 2018-11-07 05:55 | EKG12_ITS ---
Test Reason : AM EKG Blood Pressure : / mmHG Vent. Rate : 069 BPM Atrial Rate : 069 BPM P-R Int : 178 ms QRS Dur : 088 ms QT Int : 430 ms P-R-T Axes : 048 058 025 degrees QTc Int : 460 ms Sinus rhythm with Premature atrial complexes Prolonged QT Abnormal ECG When compared with ECG of 06-NOV-2018 11:46, MANUAL COMPARISON REQUIRED, DATA IS UNCONFIRMED Confirmed by NASREEN ANTONIO, HOMERO ([id number]), tape editor JANNETH CONWAY ([id number]) on 11/12/2018 5:22:59 PM Referred By: Emanuel Kelly Confirmed By:HOMERO DOWNEY MD
--- NOTE | 2018-11-07 07:26 | CRPHASE1 ---
Patient Communication PHII Cardiac Rehab Discussed with Patient:: Yes Guide to Cardiac Rehab Given to Patient:: Yes Cardiac Rehab Facility Choice List Given to Patient:: Yes - PATIENT IS GOING TO DECIDE [facility] OR [facility] CR PHII:: Communication Given to CR, Refer to [facility] Program Other:: Communication Given to CR, With permission faxed order and referral information Driller'S Offsider:: Wayne Paula Phase II Cardiac Rehab:: Yes Sessions:: 36 sessions - 3 days/wk, 12 weeks Risk Factors/Lifestyle Smoking Status: Former smoker Hx Hypertension: Yes Hx Diabetes Mellitus Type 2: No Height: 1.8 m Weight:: 102.9 kg BMI: 31.7 ETOH: No Caffeine: Yes Substance Abuse: No Family History: Family History (Last Reviewed 11/01/18 @ 09:55 by Bárbara Gay) Father CAD (coronary artery disease) Diabetes HLD (hyperlipidemia) Hypertension Mother Breast cancer Cancer Sister Lichen sclerosus Family History: Heart Disease, Hypertension Past Cardiac Illness: Previous PCI w/Stent Laboratory Values: Cardiac Rehab Phase I Labs Triglycerides 218 mg/dL (-199) H 11/07/18 05:05 Cholesterol 165 mg/dL (200) 11/07/18 05:05 LDL Cholesterol 86 mg/dL (0-130) 11/07/18 05:05 HDL Cholesterol 35 mg/dL (40-) L 11/07/18 05:05 Phase I Education Given On:: [place], Nutrition, Antiplatelet medication Issues Affecting Care:: None Knowledge of Condition:: Yes Hospital Course Pain Description: Dull, Aching Pain Intensity: 2 Cardiac Cath Date:: 11/06/18 Medical/Surgical History Angina:: Yes Hypertension:: Yes Dyslipidemia:: Yes PTCA:: Yes - 2003 Discharge/Home/Social Eval Discharge Disposition: Home Marital Status: Cardiac Rehabilitation Info Cardiac Rehabilitation Program Information: Cardiac Rehabilitation is important for patients like you who are recovering from a heart problem. Cardiac rehabilitation programs are recognized as integral to the continued care of the patient with coronary heart disease. The cardiac rehabilitation program is designed to optimize a patient's physical, psychological, and social functioning. Health career services manager work in cardiac rehabilitation programs and assist you with getting the treatments you need to get stronger and healthier - like exercise, healthy eating habits, and medications. Cardiac rehabilitation has been show to help people with heart problems live longer and have better life enjoyment than people who do not go to cardiac rehabilitation. Please contact the Cardiac Rehabilitation Program at [facility] at in two weeks if you have not heard from them.
--- NOTE | 2018-11-07 07:30 | CRPHASE1_ITS ---
Patient Communication PHII Cardiac Rehab Discussed with Patient:: Yes Guide to Cardiac Rehab Given to Patient:: Yes Cardiac Rehab Facility Choice List Given to Patient:: Yes - PATIENT IS GOING TO DECIDE [facility] OR [facility] CR PHII:: Communication Given to CR, Refer to [facility] Program Other:: Communication Given to CR, With permission faxed order and referral information Renal Technician:: Wayne Paula Phase II Cardiac Rehab:: Yes Sessions:: 36 sessions - 3 days/wk, 12 weeks Risk Factors/Lifestyle Smoking Status: Former smoker Hx Hypertension: Yes Hx Diabetes Mellitus Type 2: No Height: 1.8 m Weight:: 102.9 kg BMI: 31.7 ETOH: No Caffeine: Yes Substance Abuse: No Family History: Family History (Last Reviewed 11/01/18 @ 09:55 by Bárbara Gay) Father CAD (coronary artery disease) Diabetes HLD (hyperlipidemia) Hypertension Mother Breast cancer Cancer Sister Lichen sclerosus Family History: Heart Disease, Hypertension Past Cardiac Illness: Previous PCI w/Stent Laboratory Values: Cardiac Rehab Phase I Labs Triglycerides 218 mg/dL (-199) H 11/07/18 05:05 Cholesterol 165 mg/dL (200) 11/07/18 05:05 LDL Cholesterol 86 mg/dL (0-130) 11/07/18 05:05 HDL Cholesterol 35 mg/dL (40-) L 11/07/18 05:05 Phase I Education Given On:: [place], Nutrition, Antiplatelet medication Issues Affecting Care:: None Knowledge of Condition:: Yes Hospital Course Pain Description: Dull, Aching Pain Intensity: 2 Cardiac Cath Date:: 11/06/18 Medical/Surgical History Angina:: Yes Hypertension:: Yes Dyslipidemia:: Yes PTCA:: Yes - 2003 Discharge/Home/Social Eval Discharge Disposition: Home Marital Status: Cardiac Rehabilitation Info Cardiac Rehabilitation Program Information: Cardiac Rehabilitation is important for patients like you who are recovering from a heart problem. Cardiac rehabilitation programs are recognized as integral to the continued care of the patient with coronary heart disease. The cardiac rehabilitation program is designed to optimize a patient's physical, psychological, and social functioning. Health career orientation teacher work in cardiac rehabilitation programs and assist you with getting the treatments you need to get stronger and healthier - like exercise, healthy eating habits, and medications. Cardiac rehabilitation has been show to help people with heart problems live longer and have better life enjoyment than people who do not go to cardiac rehabilitation. Please contact the Cardiac Rehabilitation Program at [facility] at in two weeks if you have not heard from them.
--- NOTE | 2018-11-07 07:33 | CRPH1.INSTRU ---
General Education CAD and cardiac anatomy and function:: Patient communicates acknowledgment Explanation of diagnoses and procedures:: Patient communicates acknowledgment Sign/Symptoms of [place]:: Patient communicates acknowledgment Antiplatelet therapy: Patient communicates acknowledgment Emergency procedures and activation of EMS: Patient communicates acknowledgment Compliance of all prescribed medications: Patient communicates acknowledgment Smoking Patient Nicotine/Smoking Risk Factors Are:: Non-smoker Dyslipidemia Patient Dyslipidemia Risk Factors Are:: Total Cholesterol - 86, Triglycerides - 260, HDL - 36, LDL - 52 Dyslipidemia Response Code:: Patient communicates acknowledgment Overweight/Obesity Patient Overweight/Obesity Risk Factors Are:: Overweight = 26-29 Overweight/Obesity:: Patient communicates acknowledgment Hypertension Recommendations Include:: Maintain BP <130/85 Hypertension:: Patient communicates acknowledgment - on meds Heart Disease Patient Heart Disease Risk Factors Are:: Family history of heart disease < 65 years old, Previous cardiac event Heart Disease Response Code:: Patient communicates acknowledgment Diabetes Patient Diabetes Risk Factors Are:: No documented hx of diabetes Metabolic Syndrome Patient Metabolic Syndrome Risk Factors Are [3 of 5]:: High triglyceride >150, Hypertension Metabolic Syndrome Response Code:: Patient communicates acknowledgment Sedentary Sedentary Response Code:: Patient communicates acknowledgment Stress Patient Stress Risk Factors Are:: Patient denies stress as a risk factor Stress Response Code:: Patient communicates acknowledgment
--- NOTE | 2018-11-07 07:36 | CRPH1.INST_ITS ---
General Education CAD and cardiac anatomy and function:: Patient communicates acknowledgment Explanation of diagnoses and procedures:: Patient communicates acknowledgment Sign/Symptoms of [place]:: Patient communicates acknowledgment Antiplatelet therapy: Patient communicates acknowledgment Emergency procedures and activation of EMS: Patient communicates acknowledgment Compliance of all prescribed medications: Patient communicates acknowledgment Smoking Patient Nicotine/Smoking Risk Factors Are:: Non-smoker Dyslipidemia Patient Dyslipidemia Risk Factors Are:: Total Cholesterol - 86, Triglycerides - 260, HDL - 36, LDL - 52 Dyslipidemia Response Code:: Patient communicates acknowledgment Overweight/Obesity Patient Overweight/Obesity Risk Factors Are:: Overweight = 26-29 Overweight/Obesity:: Patient communicates acknowledgment Hypertension Recommendations Include:: Maintain BP <130/85 Hypertension:: Patient communicates acknowledgment - on meds Heart Disease Patient Heart Disease Risk Factors Are:: Family history of heart disease < 65 years old, Previous cardiac event Heart Disease Response Code:: Patient communicates acknowledgment Diabetes Patient Diabetes Risk Factors Are:: No documented hx of diabetes Metabolic Syndrome Patient Metabolic Syndrome Risk Factors Are [3 of 5]:: High triglyceride >150, Hypertension Metabolic Syndrome Response Code:: Patient communicates acknowledgment Sedentary Sedentary Response Code:: Patient communicates acknowledgment Stress Patient Stress Risk Factors Are:: Patient denies stress as a risk factor Stress Response Code:: Patient communicates acknowledgment
--- NOTE | 2018-11-07 08:27 | PCM.PN.CARD ---
Subjectve: The patient is awake and alert today. He denies any ongoing chest discomfort or difficulty breathing. He has had no right lower extremity concerns. He has been up and ambulating without difficulty. Objective: Vital Signs Temp Pulse Resp BP Pulse Ox 98.3 F 80 24 H 130/77 H 95 11/07/18 04:00 11/07/18 08:00 11/07/18 08:00 11/07/18 08:00 11/07/18 08:00 Oxygen Delivery Method Room Air Weight: 226 lb 13.69 oz Body Mass Index (BMI) 32.1 Intake and Output for Last 24 Hours 11/05/18 11/06/18 11/07/18 23:59 23:59 23:59 Intake Total 2240 / 2240 200 / 200 Output Total 2950 / 2950 Balance -710 / -710 200 / 200 General: Awake, Alert, Oriented x 3, Cooperative, No Acute Distress HEENT: Atraumatic, Normocephalic, PERRL, EOMI, Sclera Non Icteric Oral: Moist Mucosa Neck: Supple, Good ROM, No JVD Lungs: Clear to auscultation Cardiovascular: Regular Rhythm, Normal S1, Normal S2 Vascular: Normal Femoral Pulses Abdomen: Bowel Sounds Present, Non Tender Extremities: No Cyanosis, No Clubbing, No edema Neurological: No Focal Motor or Sensory Deficit Psych/Mental Status: Appropriate 11/07/18 05:05: WBC 6.5, RBC 5.66, Hgb 17.7 H, Hct 49.4, MCV 87.3, MCH 31.3, MCHC 35.8, RDW 12.1, RDW Differential 38.5, Plt Count 167, MPV 10.1 11/07/18 05:05: Sodium 140, Potassium 4.2, Chloride 106, Carbon Dioxide 26.0, Anion Gap 8, BUN 13, Creatinine 0.84, Est GFR (MDRD) Af Amer 121, Est GFR (MDRD) Non-Af 100, BUN/Creatinine Ratio 15.4, Glucose 106, Calcium 8.5, Triglycerides 218 H, Cholesterol 165, LDL Cholesterol 86, VLDL Cholesterol 44 H, HDL Cholesterol 35 L Rhythm: Sinus rhythm EKG: Sinus rhythm; no acute ECG changes Medical Necessity - Tobacco Use Smoking Status: Former smoker Assessment/Plan 1. CAD status post RCA PTCA/stent-remote and recent The patient is now status post reevaluation with diagnostic cardiac catheterization. He was found to have progression of his RCA disease proximal to his distal stent. He has subsequently undergone repeat PTCA/ISRRAEL to that area with good angiographic results. The patient will continue medical management. He has been evaluated by cardiac rehabilitation. He will continue with outpatient cardiovascular follow-up. 2. Hyperlipidemia The patient will continue lipid-lowering therapy. 3. Hypertension The patient will continue antihypertensive therapy. Comment: The patient's case was discussed and reviewed with the patient and Dr. Paula. This note was generated with [employer] dictation software. It may contain incorrect words, spelling, and punctuation that were not noted in checking the note before signing.
[2018-11-07] MEDS: Aspirin 81 MG TAB.CHEW PO (08:30)
[2018-11-07] MEDS: Lisinopril 20 MG Tablet PO (08:30)
[2018-11-07] MEDS: DULoxetine Hcl 60 MG Capsule PO (08:30)
[2018-11-07] MEDS: Clopidogrel Bisulfate 75 MG Tablet PO (08:30)
[2018-11-07] MEDS: Metoprolol Tartrate 25 MG Tablet PO (08:30)
--- NOTE | 2018-11-07 08:31 | PCM.DC ---
- Discharge Diagnoses Current Active Problems: CAD status post RCA PCI/ISRRAEL You will use the following diet at home:: Cardiac Your food should be the consistency of: Regular Discharge Activity: May Not Drive - May not drive times 48 hours, May Shower - May shower today, May Take a Tub Bath - May not take a tub bath times 7 days Return to work on:: 11/14/18 May resume sexual activity in: 2 weeks Weight Bearing Status: - - Avoid heavy exertional activity times 2 weeks Call your doctor if your incision/area has: Continuous Slow Oozing, Sudden Increased Bleeding, Increased Pain/ Swelling, Increased Redness, Foul Smelling Discharge, Swelling at the incision site Call your doctor if you observe: Fever of 101 or Higher, Shortness of breath, Dizziness, Fainting spells, Chest pain, Increased palpitations (irregular heartbeat) Change Dressing in (Days):: 1 Remove Dressing in (days):: 1 Cleanse incision/area with: Soap & Water Allergies/Adverse Reactions: Allergies ciprofloxacin [From Cipro] Allergy (Verified 11/01/18 09:50) Rash ciprofloxacin HCl [From Cipro] Allergy (Verified 11/01/18 09:50) Rash naproxen [From Naprosyn] Allergy (Verified 11/01/18 09:50) Hives amoxicillin [From Augmentin] Adverse Reaction (Severe, Verified 11/01/18 09:50) Hives clavulanic acid [From Augmentin] Adverse Reaction (Severe, Verified 11/01/18 09:50) Hives codeine Adverse Reaction (Intermediate, Verified 11/01/18 09:50) Nausea CIPRO Allergy (Uncoded 11/01/18 09:50) Rash Medications to take at Discharge Duloxetine Hcl [Cymbalta] 60 mg PO DAILY 07/22/15 Aspirin [Aspirin, Baby] 81 mg PO DAILY@0800 07/26/16 nitroglycerin 0.4 mg sublingual tablet 0.4 mg SUBLINGUAL Q5M PRN 10/04/17 lisinopril 20 mg tablet 20 mg PO DAILY #90 tab 05/03/18 metoprolol tartrate 25 mg tablet 25 mg PO BID #180 tab 05/03/18 emollient combination no.43 topical cream 1 applic TOPICAL DAILY PRN g 09/27/18 atorvastatin 80 mg tablet 80 mg PO QHS #30 tab 11/01/18 clopidogrel 75 mg tablet 75 mg PO DAILY #30 tab 11/01/18 Aspirin [Aspirin, Baby] 81 mg PO DAILY@0800 tab.chew 11/07/18 Atorvastatin Calcium [Lipitor] 80 mg PO QHS tablet 11/07/18 Clopidogrel Bisulfate [Plavix] 75 mg PO DAILY tablet 11/07/18 Duloxetine Hcl [Cymbalta] 60 mg PO DAILY capsule 11/07/18 Lisinopril [Zestril] 20 mg PO DAILY tablet 11/07/18 Metoprolol Tartrate [Lopressor (beta nevaeh)] 25 mg PO BID tablet 11/07/18 Nitroglycerin [Nitrostat] 0.4 mg SUBLINGUAL Q5M PRN tablet 11/07/18 Nitroglycerin [Nitrostat] 0.4 mg SUBLINGUAL Q5M PRN tablet 11/07/18 Primary Care Physician: Abundio Kilgore DO [Primary Care Provider] - Test Results: Test results from this visit will be discussed in further detail at your follow-up appointment, if applicable. Please Follow Up With: Emanuel Kelly MD When: To be arranged by the [facility] Proposed Discharge Date: 11/07/18
--- NOTE | 2018-11-07 08:34 | PCM.DC.SUM ---
Discharge Date and Diagnosis Date of Admission: 11/06/18 Date of Discharge: 11/07/18 - Primary Discharge Diagnosis CAD status post RCA PCI/ISRRAEL - Secondary Discharge Diagnosis Chronic Problems (Last Updated 11/06/18 @ 16:48 by Ratna Philip) Presence of stent in coronary artery (Chronic ~11/06/18) PTCA/stent of the prox RCA and posterolateral branch of the RCA 09/15/03; PTCA/ISRRAEL to the prox PL branch of the RCA 11/06/18 Essential hypertension (Chronic) Obesity (BMI 30.0-34.9) (Chronic) Hyperlipidemia (Chronic) History of percutaneous transluminal coronary angioplasty (Chronic ~09/15/03) PTCA/stent of the prox RCA and posterolateral branch of the RCA 09/15/03 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 He presented for diagnostic cardiac catheterization. He was found to have progression of his [place] vessel disease especially his RCA system. He subsequently underwent additional RCA PTCA/ISRRAEL under the care of Wayne Paula MD. The patient was monitored overnight. He appeared to be symptomatically and hemodynamically stable. It was felt patient could be released home for continued outpatient cardiovascular follow-up and outpatient cardiac rehabilitation. [] Subjective: The patient is awake and alert and in no acute distress. - Physical Exam General: Alert, Oriented x3, Cooperative, No apparent distress HEENT: Atraumatic, PERRLA, EOMI, Normocephalic Oral: Moist Mucosa Neck: Supple, No JVD Lungs: Clear to auscultation Cardiovascular: Regular rate, Regular Rhythm Abdomen: Bowel Sounds Present, Soft, Non Tender Extremities: No clubbing, No cyanosis, No edema Skin: No rashes Neurological: Neuro grossly intact Psych/Mental Status: Normal Affect Comment: Right inguinal area: Femoral pulses 2+/4+; no obvious bruit; no obvious hem Vital Signs Temp Pulse Resp BP Pulse Ox 98.3 F 80 24 H 130/77 H 95 11/07/18 04:00 11/07/18 08:30 11/07/18 08:00 11/07/18 08:30 11/07/18 08:00 Oxygen Delivery Method Room Air Weight: 226 lb 13.69 oz Body Mass Index (BMI) 32.1 Intake and Output for Last 24 Hours 11/05/18 11/06/18 11/07/18 23:59 23:59 23:59 Intake Total 2240 / 2240 200 / 200 Output Total 2950 / 2950 Balance -710 / -710 200 / 200 Laboratory Tests Past 24 Hrs 11/06/18 11/06/18 11/07/18 11:10 13:31 05:05 WBC 6.5 RBC 5.66 Hgb 17.7 H Hct 49.4 MCV 87.3 MCH 31.3 MCHC 35.8 RDW 12.1 RDW Differential 38.5 Plt Count 167 MPV 10.1 Activated Clotting Time 191 H 136 Sodium Potassium Chloride Carbon Dioxide Anion Gap BUN Creatinine Estim Creat Clear Calc Est GFR (MDRD) Af Amer Est GFR (MDRD) Non-Af BUN/Creatinine Ratio Glucose Calcium Triglycerides Cholesterol LDL Cholesterol VLDL Cholesterol HDL Cholesterol 11/07/18 05:05 WBC RBC Hgb Hct MCV MCH MCHC RDW RDW Differential Plt Count MPV Activated Clotting Time Sodium 140 Potassium 4.2 Chloride 106 Carbon Dioxide 26.0 Anion Gap 8 BUN 13 Creatinine 0.84 Estim Creat Clear Calc 105.83 Est GFR (MDRD) Af Amer 121 Est GFR (MDRD) Non-Af 100 BUN/Creatinine Ratio 15.4 Glucose 106 Calcium 8.5 Triglycerides 218 H Cholesterol 165 LDL Cholesterol 86 VLDL Cholesterol 44 H HDL Cholesterol 35 L Discharge Activity: May Not Drive - May not drive times 48 hours, May Shower - May shower today, May Take a Tub Bath - May not take a tub bath times 7 days Return to work on:: 11/14/18 May resume sexual activity in: 2 weeks Weight Bearing Status: - - Avoid heavy exertional activity times 2 weeks Call your doctor if your incision/area has: Continuous Slow Oozing, Sudden Increased Bleeding, Increased Pain/ Swelling, Increased Redness, Foul Smelling Discharge, Swelling at the incision site Call your doctor if you observe: Fever of 101 or Higher, Shortness of breath, Dizziness, Fainting spells, Chest pain, Increased palpitations (irregular heartbeat) Change Dressing in (Days):: 1 Remove Dressing in (days):: 1 Cleanse incision/area with: Soap & Water Home Medications: Medications to take at Discharge Duloxetine Hcl [Cymbalta] 60 mg PO DAILY 07/22/15 Aspirin [Aspirin, Baby] 81 mg PO DAILY@0800 07/26/16 nitroglycerin 0.4 mg sublingual tablet 0.4 mg SUBLINGUAL Q5M PRN 10/04/17 lisinopril 20 mg tablet 20 mg PO DAILY #90 tab 05/03/18 metoprolol tartrate 25 mg tablet 25 mg PO BID #180 tab 05/03/18 emollient combination no.43 topical cream 1 applic TOPICAL DAILY PRN g 09/27/18 atorvastatin 80 mg tablet 80 mg PO QHS #30 tab 11/01/18 clopidogrel 75 mg tablet 75 mg PO DAILY #30 tab 11/01/18 Aspirin [Aspirin, Baby] 81 mg PO DAILY@0800 tab.chew 11/07/18 Atorvastatin Calcium [Lipitor] 80 mg PO QHS tablet 11/07/18 Clopidogrel Bisulfate [Plavix] 75 mg PO DAILY tablet 11/07/18 Duloxetine Hcl [Cymbalta] 60 mg PO DAILY capsule 11/07/18 Lisinopril [Zestril] 20 mg PO DAILY tablet 11/07/18 Metoprolol Tartrate [Lopressor (beta nevaeh)] 25 mg PO BID tablet 11/07/18 Nitroglycerin [Nitrostat] 0.4 mg SUBLINGUAL Q5M PRN tablet 11/07/18 Nitroglycerin [Nitrostat] 0.4 mg SUBLINGUAL Q5M PRN tablet 11/07/18 Primary Care Physician: Abundio Kilgore DO [Primary Care Provider] - Please Follow Up With: Emanuel Kelyl MD When: To be arranged by the [facility] Disposition: Home Minutes spent on discharge:: 45 Patient Condition:: Stable Medical Necessity - Tobacco Use Smoking Status: Former smoker Meaningful Use Info Meaningful Use Diagnoses (Choose all that apply): None applicable
== END 2018-11-07 10:40 | disposition home or self-care (01) ==
LOC: CLSP 09:05 → ICU 10:59
PROVIDERS: Family Provider Family Medicine; PCP Family Medicine; Referring Provider Internal Medicine Cardiovascular Disease; Visit Provider Internal Medicine Cardiovascular Disease
DX: I25.10 Atherosclerotic heart disease of native coronary artery without angina pectoris (principal); E78.2 Mixed hyperlipidemia; G47.33 Obstructive sleep apnea (adult) (pediatric); I10 Essential (primary) hypertension; E66.9 Obesity, unspecified; Z68.32 Body mass index [BMI] 32.0-32.9, adult; Z98.61 Coronary angioplasty status; Z87.891 Personal history of nicotine dependence
CPT/HCPCS: 36415; 71046; 80048; 80061; 85027; 85347; 85610; 85730; 92928; 93005; 93458; 99152; 99153; J7030; J7040; Q9957; Q9967; A4216; C1725; C1769; C1874; C1887; C1894; C9600

== ENCOUNTER → 2019-02-26 14:02 | Outpatient (CLI) | payer OTHER, SELFPAY ==
[2018-11-07 07:32] VITALS: BMI 31.7
[2019-02-26 13:54] VITALS: BMI 31.6
--- NOTE | 2019-02-26 14:04 | RAD_ITS ---
STUDY: X-RAY - PELVIS AND LEFT HIP REASON FOR EXAM: Chronic pain, no specific injury. TECHNIQUE: 2 views of the pelvis and hip. COMPARISON: None. FINDINGS: There are pelvic phleboliths. There is mild vascular calcification. Normal bilateral iliac wings, sacroiliac joints and visualized sacrum. Normal bilateral superior and inferior pubic rami. Normal pubic symphysis. Normal bilateral ischial tuberosities. Normal visualized femoral head. Normal acetabulum. There are marginal osteophytes of the femoral head and moderately severe joint space narrowing of the superior lateral aspect of the left hip. RAD/HIP, UNI W/ Pelvis 2-3 Views IMPRESSION: Left hip arthrosis. Electronically Signed: Zaid Rankin MD at 14:52 EDT Tel , Service support ,
== END ==
PROVIDERS: Family Provider Family Medicine; PCP Family Medicine; Referring Provider Orthopaedic Surgery; Visit Provider Orthopaedic Surgery
DX: R10.32 Left lower quadrant pain (principal)
CPT/HCPCS: 73502

== ENCOUNTER 2019-04-26 15:00 | Outpatient (RCR) | payer OTHER, SELFPAY ==
[2018-11-07 07:32] VITALS: BMI 31.7
[2019-02-26 13:54] VITALS: BMI 31.6
[2019-02-28 08:25] VITALS: BMI 31.6
--- NOTE | 2019-03-01 14:28 | HP.PTEVAL_ITS ---
Patient's Visit Information STEFANIE CARLSON is a 54 year old M referred to Physical Therapy by Stefany Weston DO with a diagnosis of L hip OA. Date of Evaluation: 03/01/19 Physical Therapist: PRADEEP MccormackT, OCS, CSCS - Visit Plan Frequency: 2-3x /Week Duration: 4-6 Weeks Plan: 2-3x/week for 2-4 weeks in water then consider land PT based on results and pt desire. HS/quad/ hip flexor/ITB stretch, core strength and hip /knee strength adn progress to I. 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 - Subjective Findings: L hip OA . Had a lift put in shoe L a few years ago. Getting OA in R knee due to pounding. Very active shonna. 5Ks and 7Ks have had to stop as they hurt like heck. problem now is pain in L anterior and lateral hip . It is very uncomfortable. Getting up from chair is painfu and slow to start. Walking is painful and easier in hiking shoes. Used to do martial arts and was in and got banged around pretty well but no previous obvious bad injuries. Rolling in bed can hurt and pain can linger. 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 Typically is OK sitting as long as he does not sit too long. Sleep is interrupted at times. Is a side sleeper with a cpap. R knee can hurt in L sidelie. Dressing and basics are slower but doable. Pt says L hip is bone on bone. Doctor said needs to strengthen core and legs in PT. Also injection may be appropriate. - Pain L hip Pain Intensity (Out of 10): 2 Pain Intensity Range: 2, 4 - Objective Walks with slight L antalgia, pain upon swing initiation L. Transfers tenderly out of chair but I. steps are reciprocal but L painful to place up on next step. L leg short vs R 1/2 inch and wears heel lift. reflexes 2/3 patella adn achilles B. Sensation WNL to gross light touch LE. Strength B LE hips 4/5 adn knees 4+/5, ankles 4/5. Tender L ITB adn TFL max. + L hip scour. [place] pain with LOKESH and max pain with FADDIR L. R hip AROM WFL, L hip ext rotation 50, IR extremely painful at 5 degrees vs 18 on L. flexion L 105 pain and R 120+, ext symmetrical and no painful B at 10 . - Goals Goal 1:: Patient ambulate without antalgia L Goal Time Frame: 4-6 Weeks Goal 2:: Ascend steps without noticing L leg pain Goal Time Frame: 4-6 Weeks Goal 3:: I approp HEP home or land to minimize future problems Goal Time Frame: 4-6 Weeks - Rehabilitation Potential Physical Therapy Diagnosis: L hip OA Rehabilitation Potential: Fair - Anticipated Interventions Patient/Client Instruction: Educate patient on: Condition, Plan of Care For the Purpose of:: To decrease pain, To improve muscle performance and motor function, To improve ability of physical actions for home/community/work/leisure, To improve gait and locomotor functions Therapeutic Exercise to Include: Strength training, Flexibilty training, In an aquatic setting, Passive ROM, Active ROM For the Purpose of:: To decrease pain, To increase ROM, To improve ability of physical actions for home/community/work/leisure, To improve gait and locomotor functions Thank you for the opportunity to evaluate your patient. For Medicare and Medicare HMO plans, please review the plan of care and approve it. It will need to be FAXED BACK to us at [phone] for Medicare purposes. For Medicare only, by signing this I certify the plan of care. Please let me know if there are questions or concerns regarding this plan of care. Physician Signature: Date:
--- NOTE | 2019-03-22 14:55 | HP.PTREVAL_ITS ---
Stefany Weston, DO, It has been my pleasure to treat STEFANIE CARLSON over the last 7 visits for L hip OA. Please see the progress note below for an update on the physical therapy plan of care! Subjective: Exercises going well. Got home stretches starting this week. L hip is better. No pain today and that is better. No pain in a couple weeks. 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 Doing niking and elliptical at home comfortably. Will start weights Objective/Function: 15 aROM IR L and 50 Ext rotation, improved. Walking normal without antalgia. Trasnferrring easily without evidence of pain. steps reciprocal withotu rail without pain. OVERALL DOING VERY WELL AND WILL COTNINUE STRETCHES I AT HOME ADN GRADUALLY BACK TO WEIGHTS. NEW GOAL AND FAIR PROGNSOSIS Plan Plan: F/U 3 WEEKS FOR LIKELY ENSURE STRENGTH EX VIA HEP AND D/C, ANSWER QUESTIONS ON STRENGTHENING WORKOUT Goals Goal 1:: Patient ambulate without antalgia L Goal Time Frame: 4-6 Weeks Goal Progress: Goal Met Goal 2:: Ascend steps without noticing L leg pain Goal Time Frame: 4-6 Weeks Goal Progress: Goal Met Goal 3:: I approp HEP home or land to minimize future problems Goal Time Frame: 4-6 Weeks Goal Progress: Goal Met Goal 4:: Maintain pain improvements adn get back to weight workout. Goal Time Frame: 2-4 Weeks Goal Progress: NEW GOAL Anticipated Interventions Patient/Client Instruction: Educate patient on: Condition, Plan of Care For the Purpose of:: To decrease pain, To improve muscle performance and motor function, To improve ability of physical actions for home/community/work/leisure, To improve gait and locomotor functions Therapeutic Exercise to Include: Strength training, Flexibilty training, In an aquatic setting, Passive ROM, Active ROM For the Purpose of:: To decrease pain, To increase ROM, To improve ability of physical actions for home/community/work/leisure, To improve gait and locomotor functions Please do not hesitate to contact me at [phone] by phone or if you have questions or concerns regarding this new plan of care! Sincerely, Wally Cuellar, DPT, OCS, CSCS
--- NOTE | 2019-04-26 15:19 | HP.PTDCSUM ---
HP - PT D/C Summary It has been my pleasure to treat STEFANIE CARLSON under orders from Stefany Weston DO, for the diagnosis of L hip OA for a total of 8 visit(s). Discharge Date: 04/26/19 Please see the following information for a summary of their discharge status. - Subjective Subjective: Been doing exercises on his own. Pleased with results and wants to keep going with HEP. Stretches are particularly helpful. No pain in last week. Activities are pretty normal for him. Been on TM and bike for workouts. 30-60 minutes. Did weightlifting RDL and squats with DB and heel raises. - Pain L hip Pain Intensity (Out of 10): 0 - Overall Improvement % Improvement: 90 - Objective Objective/Function: walking normal today, steps reciprocal without rail or pain. AROM B hips is symmetrical and without pain today. HS adn quads and piriformis still mod tight but improving and not painful. OVERALL DID VERY WELL WITH PT AND WILLING TO COTNINUE ON HIS OWN I. - Goals Goal 1:: Patient ambulate without antalgia L Goal Progress: Goal Met Goal 2:: Ascend steps without noticing L leg pain Goal Progress: Goal Met Goal 3:: I approp HEP home or land to minimize future problems Goal Progress: Goal Met Goal 4:: Maintain pain improvements adn get back to weight workout. Goal Progress: Goal Met - Plan Plan: D/C - D/C Information Discharge Comments: pT DOING WELL WITHOUT HIP PAIN OR DISCOMFORT. I WITH APPROPRIATE HEP ADN WILL COTNACT DOCTOR IF PAIN RETURNS. If there are questions or concerns regarding this patient's physical therapy, please feel free to call me at [phone]. Thank you for the referral of this patient. Sincerely, Wally Cuellar, DPT, OCS, CSCS
== END 2019-04-26 19:00 | disposition home or self-care (01) ==
LOC: PT 15:00
PROVIDERS: Family Provider Family Medicine; PCP Family Medicine; Referring Provider Orthopaedic Surgery; Visit Provider Orthopaedic Surgery
DX: M16.12 Unilateral primary osteoarthritis, left hip (principal)
CPT/HCPCS: 97113; 97162; 97530

== ENCOUNTER → 2019-05-17 14:00 | Outpatient (CLI) | payer OTHER, SELFPAY ==
[2018-11-07 07:32] VITALS: BMI 31.7
[2019-05-17 13:09] VITALS: BMI 32.1
[2019-05-17 15:17] LABS: Absolute Neutrophil Count 3.6 X10^3/uL (2.0-7.7); Basophil# 0.02 X10^3/uL; Basophil% 0.3 % (0-1); Eosinophils% 1.6 % (0-5); Mean Corp Hgb Conc 35.5 g/dL (32-36); Mean Corpuscular Hgb 31.6 pg (27.0-32.0); Mean Corpuscular Volume 89.1 fL (80-94); Mean Platelet Vol. 9.8 fl (6.2-12.0); Monocyte# 0.53 X10^3/uL; Monocyte% 8.3 % (0-10); NRBC Flagged by Analyzer 0 % (0-5); Neutrophil # 3.58 X10^3/uL (2.7-7.7); Neutrophil % 56.3 % (47-70); Platelet Count 204 K/mm3 (150-450); RBC Distribution Width CV 11.5 % (11.6-14.6); RBC Distribution Width SD 36.9 fl (35.1-43.9); Red Blood Count 5.95 M/mm3 (4.6-6.2); White Blood Count 6.4 K/mm3 (4.4-11.0)
[2019-05-17 15:23] LABS: Hemoglobin 18.8 g/dL (13.0-16.5)
[2019-05-17 15:30] LABS: International Normalized Ratio 0.9; Prothrombin Time (Protime)PT. 12.4 SECONDS (11.7-14.9)
[2019-05-17 15:31] LABS: Partial Thromboplast Time 24.9 Seconds (24.1-36.2)
[2019-05-17 15:48] LABS: Anion Gap 7 (5-15); BUN 13 mg/dL (7-18); Calcium,Total 9.1 mg/dL (8.5-10.1); Chloride 104 mmol/L (98-107); Creatinine, Serum 0.93 mg/dL (0.70-1.30); EST Glomerular Filtration Rate 90 mL/min (>60); Est Glom Filt Rate - Afr Amer 108 mL/min (>60); Glucose 130 mg/dL (74-106); Potassium 3.7 mmol/L (3.5-5.1); Sodium Level 140 mmol/L (136-145)
== END ==
PROVIDERS: Family Provider Family Medicine; PCP Family Medicine; Referring Provider Nurse Practitioner Family; Visit Provider Nurse Practitioner Family
DX: I25.10 Atherosclerotic heart disease of native coronary artery without angina pectoris (principal); Z98.61 Coronary angioplasty status; I10 Essential (primary) hypertension; Z95.5 Presence of coronary angioplasty implant and graft
CPT/HCPCS: 36415; 80048; 85025; 85610; 85730

== ENCOUNTER 2019-05-29 07:01 | Day surgery (SDC) | payer OTHER, SELFPAY ==
[2018-11-07 07:32] VITALS: BMI 31.7
[2019-02-28 08:25] VITALS: BMI 31.6
--- NOTE | 2019-05-17 01:39 | HP_ITS ---
HPI HPI History of Present Illness Surgical H&P: Yes Details: STEFANIE CARLSON, is a 54 M who presents to the office today for a cardiovascular outpatient follow-up. Patient has a history of coronary artery disease status post PTCA/stent to the proximal RCA in August 2003 and drug- eluting stent to proximal PL branch of RCA in October 2018, hyperlipidemia, and moderate SAVANNAH. Patient continues to have chest pain and fatigue. Despite a normal stress test in September 2018, he will proceed with heart catheterization to her further evaluate given residual disease noted in October 2018. He denies arm, jaw, or neck discomfort. He states continual dull ache in regards to left upper chest. He denies symptoms of CHF, palpitations, lightheadedness, dizziness, near syncope, or syncopal episodes. He denies edema or claudication issues. He denies orthopnea, PND, fever, chills, blood in urine, blood in stool, or myalgia. Intake Vital Signs 05/17/19 Height 5 ft 11 in 05/17/19 Weight: 230 lb 05/17/19 Body Mass Index (BMI) 32.1 05/17/19 Blood Pressure 153/87 H 05/17/19 Blood Pressure Location Lt brachial 05/17/19 Blood Pressure Position Sitting 05/17/19 Respiratory Rate 18 05/17/19 Pulse Rate 91 05/17/19 Pulse Source Monitor 05/17/19 Pulse Ox 93 Intake Visit Reasons: Update H & P Enrollment Consultant Required: No Accompanied by: None Is patient in pain?: No Allergies ciprofloxacin [From Cipro] Allergy (Verified 05/17/19 13:09) Rash ciprofloxacin HCl [From Cipro] Allergy (Verified 05/17/19 13:09) Rash naproxen [From Naprosyn] Allergy (Verified 05/17/19 13:09) Hives amoxicillin [From Augmentin] Adverse Reaction (Severe, Verified 05/17/19 13:09) Hives clavulanic acid [From Augmentin] Adverse Reaction (Severe, Verified 05/17/19 13:09) Hives codeine Adverse Reaction (Intermediate, Verified 05/17/19 13:09) Nausea isosorbide Adverse Reaction (Intermediate, Verified 05/17/19 13:09) headache, cannot focus CIPRO Allergy (Uncoded 11/01/18 09:50) Rash Medications Aspirin [Aspirin, Baby] 81 mg PO DAILY@0800 07/26/16 [History Confirmed 05/17/19] emollient combination no.43 topical cream 1 applic TOPICAL DAILY PRN g 09/27/18 [History Confirmed 05/17/19] Duloxetine Hcl [Cymbalta] 60 mg PO DAILY cap 11/07/18 [Rx Confirmed 05/17/19] clopidogrel 75 mg tablet 75 mg PO DAILY #90 tab 11/26/18 [Rx Confirmed 05/17/19] nitroglycerin 0.4 mg sublingual tablet 0.4 mg SUBLINGUAL Q5M PRN #25 tab 11/26/18 [Rx Confirmed 05/17/19] amlodipine 2.5 mg tablet 2.5 mg PO DAILY #30 tab 05/08/19 [Rx Confirmed 05/17/19] atorvastatin 80 mg tablet 80 mg PO QHS #90 tab 05/17/19 [Rx Confirmed 05/17/19] duloxetine 30 mg capsule,delayed release 30 mg PO DAILY 05/17/19 [History Confirmed 05/17/19] lisinopril 20 mg tablet 20 mg PO DAILY #90 tab 05/17/19 [Rx Confirmed 05/17/19] metoprolol tartrate 25 mg tablet 25 mg PO BID #180 tab 05/17/19 [Rx Confirmed 05/17/19] [facility] Medical History (Updated 02/28/19 @ 08:40 by STEVE Goodman) Presence of stent in coronary artery (Chronic ~11/06/18) Essential hypertension (Chronic) Obesity (BMI 30.0-34.9) (Chronic) Hyperlipidemia (Chronic) Atherosclerotic heart disease of habematolel coronary artery without angina pectoris (Chronic) Chest discomfort (Acute) Chest pain (Resolved) CAD (coronary artery disease) (Inactive) Surgical History (Updated 11/01/18 @ 09:55 by Bárbara Gay) History of percutaneous transluminal coronary angioplasty (Chronic ~09/15/03) H/O reconstruction of anterior cruciate ligament tear (Resolved) History of bilateral inguinal hernia repair (Resolved ~1976) History of tonsillectomy and adenoidectomy (Resolved ~1970) Status post anal fissurectomy (Resolved) Family History (Updated 10/09/17 @ 08:38 by Martha Cid) Father CAD (coronary artery disease) Diabetes HLD (hyperlipidemia) Hypertension Mother Breast cancer Cancer liver cancer Sister Lichen sclerosus Social History (Updated 05/20/19 @ 08:08 by JUDY Lepe) Smoking Status: Former smoker how long ago did patient quit smokin alcohol intake: current alcohol intake frequency: 0-2 drinks per day Alcohol type: beer, wine, hard liquor substance use type: does not use caffeine: Yes Type: coffee Number of servings: 1 what type of physical activity do you participate in: none seatbelt use: always do you feel safe at home: Yes ROS Const Const: Positive for fatigue; negative for weakness, body ache, fever(s) or chills ENT ENT: Negative for dizziness Cardio Chest Pain: Yes Palpitations: No Edema: None Muscle aches with walking: None Resp Respiratory: Negative for SOB with activity, SOB at rest, SOB orthopnea\SOB lying down or paroxysmal nocturnal dyspnea GI GI: Negative nausea, vomiting blood/hematemesis, bright, red blood in stools or black,tarry stools : Negative for hematuria or frequent nighttime urination/ nocturia Musc Musc: Negative for muscle aches/ myalgia Skin Skin: Negative non-healing lesions or rash Neuro Neuro: Negative for dizziness, lightheadedness, near syncope, syncope, orthostatic symptoms or weakness Endo Endo: Positive for fatigue Allergy Allergy/Immunology: Negative for rash Cardiology Exam Const Appearance: cooperative, healthy appearing, comfortable and no acute distress Nutritional Appearance: well nourished and obese Orientation: alert, awake and oriented x3 Head Head: normal to inspection Ears: hearing grossly normal bilaterally Nose: external nose normal Face and Sinus: face symmetric Mouth: oral mucosae normal Eyes General: appearance normal, both eyes and all related structures Eyelids: eyelids normal EOM: EOM intact bilaterally Neck Neck: normal visual inspection and no JVD Carotids: normal carotid upstroke Chest Chest inspection: normal inspection of the chest, symmetric chest movement and normal respiratory effort; negative cough Auscultation: Bilateral: Clear to Auscultation Cardio Rate: regular rate Rhythm: regular rhythm Heart sounds: S1 normal and S2 normal; negative rub, gallop or murmur GI GI: normal to inspection and obese Neuro General: alert, awake, oriented x3 and CN's II-XI intact bilaterally Skin Skin: no rashes or lesions noted Extremities Pulses: Normal: Right Posterior Tibial Pulse, Left Posterior Tibial Pulse, Right Radial Pulse, Left Radial Pulse Lower Extremity Edema: None: Bilateral Psych Psychological: normal affect Assessment & Plan 1. Atherosclerosis of habematolel coronary artery of habematolel heart without angina pectoris I25.10 Plan His heart catheterization October 2018 resulted in drug-eluting stent to proximal PL branch of RCA for 85% stenosis. There was noted to be a mid circumflex with 75% stenosis that was not intervened on. Patient continues have chest discomfort and fatigue despite intervention in October 2018. Because of this, he will undergo a repeat heart catheterization and stenting to mid circumflex. He did undergo a stress test in September 2018 that was negative for ischemia. Patient did inquire in regards to medication adjustment to prevent further cardiac disease. He was reminded the importance of risk factor and lifestyle modification. One option that was discussed was in regards to changing Plavix to Brilinta. Based on results of his heart catheterization and response, further recommendation will be made. Orders Orders: 12 Lead EKG performed by BMS 05/17/19 Stent 05/17/19 Chest PA and Lateral 05/17/19 Basic Metabolic Profile (BMP) 05/17/19 Partial Thromboplast Time 05/17/19 Prothrombin Time w/INR 05/17/19 CBC W/Diff, Automated 05/17/19 2. Presence of stent in coronary artery Z95.5 PTCA/stent of the prox RCA and posterolateral branch of the RCA 09/15/03; PTCA/ISRRAEL to the prox PL branch of the RCA 11/06/18 Plan He will continue current medical therapy. He continues risk factor lifestyle modification. Orders Orders: 12 Lead EKG performed by BMS 05/17/19 Stent 05/17/19 Chest PA and Lateral 05/17/19 Basic Metabolic Profile (BMP) 05/17/19 Partial Thromboplast Time 05/17/19 Prothrombin Time w/INR 05/17/19 CBC W/Diff, Automated 05/17/19 3. Essential (primary) hypertension I10 Plan His blood pressure is slightly elevated today in office. This will be readdressed based on heart catheterization results and follow-up appointment. If his blood pressure remains elevated, he will require further medication adjustment and lifestyle modification. Orders Orders: Stent 05/17/19 Chest PA and Lateral 05/17/19 Basic Metabolic Profile (BMP) 05/17/19 Partial Thromboplast Time 05/17/19 Prothrombin Time w/INR 05/17/19 CBC W/Diff, Automated 05/17/19 4. Mixed hyperlipidemia E78.2 Plan His lipid panel in October 2018 showed cholesterol: 165, HDL: 35, LDL: 86, and triglycerides: 218. He continues high-dose statin medication. Plan Detail Other Orders Orders: Stent 05/17/19 Z98.61 Chest PA and Lateral 05/17/19 Z98.61 Basic Metabolic Profile (BMP) 05/17/19 Z98.61 Partial Thromboplast Time 05/17/19 Z98.61 Prothrombin Time w/INR 05/17/19 Z98.61 CBC W/Diff, Automated 05/17/19 Z98.61 Additional Comments Patient undergo heart catheterization with Dr. Kelly. Thank you for allowing us to participate in the patients plan of care, if you have any questions please do not hesitate to call. This note was generated using a voice recognition system and there may be incorrect words, spelling or punctuation that were not noted when reviewing the office note prior to saving. Coding Level of Care Code Off vis,est,level 3 Diagnoses Atherosclerosis of habematolel coronary artery of habematolel heart without angina pectoris I25.10 ??[place] vs. transplanted heart: habematolel heart Presence of stent in coronary artery Z95.5 Essential (primary) hypertension I10 Mixed hyperlipidemia E78.2 ??Hyperlipidemia type: mixed hyperlipidemia Coding Level of Care Code Off vis,est,level 3 Diagnoses Atherosclerosis of habematolel coronary artery of habematolel heart without angina pectoris I25.10 ??[place] vs. transplanted heart: habematolel heart Presence of stent in coronary artery Z95.5 Essential (primary) hypertension I10 Mixed hyperlipidemia E78.2 ??Hyperlipidemia type: mixed hyperlipidemia Supplemental Info Supplemental Information Heart catheterization from 11/06/2018: CORONARY ANGIOGRAPHY DOMINANCE: Right Dominant LEFT HEART ASSESSMENT Left Ventricular Ejection Fraction: by LV Gram 65 % Normal LV wall motion Elevated Left Ventricular End Diastolic Pressure LVEDP: 16 mmHg LEFT MAIN: Angiographically normal LEFT ANTERIOR DECENDING ARTERY: Mild luminal irregularities PROX LAD: Mild calcification CIRCUMFLEX ARTERY: PROX CIRC: Moderate calcification MID CIRC: Eccentric: 75 % Stenosis RAMUS: Mild luminal irregularities RIGHT CORONARY ARTERY: PROX RCA: Previously placed stent is patent RIGHT AV SEGMENT: Previously placed stent is patent, proximal: pre stent: 85 % Stenosis VALVE FINDINGS: Normal Aortic Valve function Mitral Valve Insufficiency - Trace (PVC induced) AORTIC ROOT: Angiographically normal He underwent successful PTCA/ISRRAEL proximal PL branch of RCA with a 3.0 x 12 Promus Synergy, post dilated throughout both stents with a 3.25 x 8 NC Balloon; 85%-->0%, no dissection. Transthoracic echocardiogram: 02/14/2006 1. Normal left ventricular size, wall motion and systolic function. 2. Estimated LVEF approximately 60%. 3. Mild concentric left ventricular hypertrophy. 4. Trivial mitral regurgitation. 5. Trivial tricuspid regurgitation. Stress Test Report Date: 10-26-18 Procedure: Exercise tolerance test/imaging study Indications: Chest pain; CAD; PCI Consent: Per the patient Procedure: The patient exercised on a Dariel protocol for 11 minutes completing Stage III and 2 minutes of Stage IV achieving a peak heart rate of 142 bpm (86 % predicted maximal heart rate) with a peak blood pressure 168/90 mmHg and a peak MET capacity of 13 METs. The baseline ECG demonstrated normal sinus rhythm. The peak exercise ECG demonstrated approximately 1-[address] segment depression in leads II, III, aVF and approximately [address] segment depression in lead V6 with resolution towards baseline beginning less than 1 minute in recovery. There were occasional PACs in recovery. The functional capacity was considered good. There was no complaint of chest discomfort during exercise or recovery. The examination was discontinued secondary to leg discomfort. Impression: 1. Technically adequate (percent predicted maximal heart rate greater than 85%) exercise tolerance test 2. Peak exercise ECG demonstrated approximately 1-[address] segment depression in leads II, III, aVF, and approximately [address] segment depression in lead V6 with resolution towards baseline beginning less than 1 minute in recovery 3. There were occasional PACs in recovery 4. Nuclear images pending Myocardial perfusion imaging study: Technique: The patient was injected with 13.7 mCi of technetium 99m Cardiolite and subsequently rest SPECT Cardiolite nuclear imaging was obtained in the horizontal long, vertical long, and short axis views. The patient exercised on a Dariel protocol for 11 minutes completing Stage III and 2 minutes of Stage IV achieving a peak heart rate of 142 bpm (86 % predicted maximal heart rate) with a peak blood pressure 168/90 mmHg and a peak MET capacity of 13 METs. The patient was injected with 44.4 mCi of technetium 99m Cardiolite and subsequently stress SPECT Cardiolite nuclear imaging was obtained in the horizontal long, vertical long, and short axis views. A gated Cardiolite study at peak stress was obtained. Interpretation: Rest and stress SPECT Cardiolite nuclear imaging status post realignment, normalization, and attenuation correction, demonstrates the appearance of relative uniform tracer uptake and myocardial perfusion appearing within normal limits. There is end systolic thickening and brightening. The gated Cardiolite study demonstrates myocardial thickening and inward wall motion. The reported LVEF is 62 %. Impression: 1. Rest and stress SPECT Cardiolite nuclear imaging demonstrate relative uniform tracer uptake and myocardial perfusion appearing within normal limits. 2. The gated Cardiolite study reports an LVEF of 62 %. Labs LDL Cholesterol 86 mg/dL (0-130) 11/07/18 HDL Cholesterol 35 mg/dL (40-) L 11/07/18 Triglycerides 218 mg/dL (-199) H 11/07/18 VLDL Cholesterol 44 mg/dL (5-40) H 11/07/18 Diagnostics Electrocardiogram 05/17/19 Stress Test Nuclear Medicine 10/26/18 Stress Test 10/26/18 Cardiac Catheterization 11/06/18 Chest X-Ray 05/17/19 05/20/19 0808 <Electronically signed by Neftali Alvarez> Date _ Neftali GARIBAYC
[2019-05-17 13:09] VITALS: BMI 32.1
--- NOTE | 2019-05-17 13:48 | RAD_ITS ---
HISTORY: PRE OP, CHRONIC DULL CHEST ACHE PER PT EXAM: XR Chest 2 Views: COMPARISON: November 01, 2018 FINDINGS: # of images incl. paperwork: 2 views of the chest Lungs are clear. Heart is not enlarged. Bones are normal. Pulmonary vascularity is distinct. No effusions. RAD/Chest PA and Lateral IMPRESSION: Normal. at 2220 Reported and signed by: Elder Dillon MD Electronically Signed: Elder Dillon MD at 22:19 EDT Tel , Service support ,
[2019-05-29] VITALS (23 sets, daily range): BP systolic 110–162; BP diastolic 58–105; PULSE 50–85; RESP 14–25; TEMP 36.7–36.8; O2SAT 93–100; BMI 32.1
[2019-05-29 09:21] LABS: ACT Activated Clotting Time 158 sec (74-137)
--- NOTE | 2019-05-29 09:40 | CL.I_ITS ---
Patient Name: STEFANIE CARLSON Study Date: 05/29/2019 Performing: Wayne Paula MD Ht: 71 inches 180 cm : 1965 Wt: 229.6 lbs 104 kg Age: 54 Gender: male BSA: 2.23 PROCEDURE(S) PERFORMED [id number] W OR WO PTCA, SINGLE CORONARY ARTERY [id number] CLINICAL PROFILE AND CO-MORBIDITIES Indications: Worsening Angina, Stable Known CAD Heart Failure: None Stress/Imaging Date: 10/26/2018 Stress Test with SPECT MPI: Negative Angina Classification Anginal Classification w/in 2 Weeks: CCS III CAD Presentations: Unstable angina. Comorbidities/Risk Factors: Hypertension Dyslipidemia Prior PCI CONCLUSIONS Single vessel CAD of the mid LCX Non obstructive coronary arteries Successful PTCA/ISRRAEL of mid LCX with a 2.5 x 28 Promus Synergy, post dilated with a 3.0 x 12 NC balloo n at 16 jaskaran; 75%-->0%, no dissection. Pt had identical CP during stent deployment. RECOMMENDATIONS Referred for immediate PCI Highly recommend quitting all tobacco products Follow up with primary pet care associate Risk factor modification ASA Indefinitley Plavix for at least 12 months Routine post interventional care Refer for Outpatient Cardiac Rehab Manual sheath removal per protocol Follow up with Dr. Paula Successful Mynx Control of RFA. DESCRIPTION OF PROCEDURE The patient arrived to the procedure lab. The risks and benefits of the procedure as well as a full d escription of our services here and lack of surgical backup were fully explained to the patient and/o r their significant other prior to the catheterization. The Timeout was completed, verifying the alondra ect patient and procedure. The patient's procedural site was prepped and draped in the usual fashion. Local anesthetic was given subcutaneously to right groin region with Lidocaine 2%. Using a modified Seldinger technique, arterial access was obtained via the right femoral artery, a 6Fr 45cm sheath was inserted.. Right Coronary Artery selective angiography was then performed in multiple views using a 4 Fr. 3DRC catheterThe images were reviewed and options discussed. A decision was then made to proce ed with an Intervention, IVUS or other adjunct procedure. ebu 3.75 Guide catheter was inserted and engaged into the LCA. bmw Guide wire was advanced to the Circumflex. emerge 2.00 x 12 Balloon catheter was advanced across lesion in the circumflex, mid. PTC A balloon inflated at 8 atms for 12 secs. PTCA balloon inflated at 8 atms for 10 secs. PTCA balloon i nflated at 8 atms for 14 secs. PTCA balloon inflated at 10 atms for 14 secs. Angiogram performed post balloon dilatation. synergy 2.50 x 28 Drug Eluting stent was advanced across the lesion in the circu mflex, mid. Angiogram performed post stent deployment. nc emerge 3.00 x 12 Balloon catheter was inse rted post stent. Angiogram performed post balloon dilatation. nc emerge 3.00 x12 Balloon catheter was inserted post stent. Angiogram performed post balloon dilatation. Contrast was injected through the sheath and the Right Iliac and Femoral artery were assessed for possible closure device. The arteria l sheath was pulled and a Mynx closure device was deployed for hemostasis CORONARY ANGIOGRAPHY DOMINANCE: Right Dominant LEFT HEART ASSESSMENT Left Ventricular Ejection Fraction: Not assessed LEFT MAIN: Angiographically normal LEFT ANTERIOR DESCENDING ARTERY: PROX LAD: Mild luminal irregularities less than 30% CIRCUMFLEX ARTERY: MID CIRC: 75 % Stenosis, Moderate calcification RAMUS: Mild luminal irregularities less than 30% RIGHT CORONARY ARTERY: PROX RCA: Instent restenosis 20 % RT PLV: Previously placed stent is patent INTERVENTION INFORMATION LESION SITE: Circumflex (Mid) Lesion Complexity: High/C, lesion at bifurcation: No, thrombus present: No, lesion length: 28 mm, cul prit lesion: Yes Pre Stenosis: 75 % Pre intervention CAT flow: 3 PROCEDURE: Drug Eluting Stent with pre and post dilatation Post Stenosis: 0 % Post intervention CAT flow: 3 Lesion Devices: [employer] 6 Fr EBU3.75 100cm Guide Catheter Toño Sci EMERGE MR 2.00x12 BALLOON Toño Sci Synergy MR ISRRAEL 2.50x28 Toño Sci NC EMERGE MR 3.00x12 BALLOON COMPLICATIONS No Complications PROCEDURE MEDICATIONS Fentanyl 25 mcg IV Oxygen: 2 L/min via nasal cannula Heparin 6000 unit(s) IV 05/29/2019 08:44:50 Nitro 200 mcg IC 05/29/2019 08:45:56 Nitro 200 mcg IC 05/29/2019 08:45:56 Nitro 200 mcg IC 05/29/2019 08:56:42 SUMMARY OF HEMODYNAMIC DATA Time AIR REST ECG 08:24:44 AO 144/88 (112) SA 08:42:48 Signed By Wayne Paula MD On 05/29/2019 09:40:46 Signed By Wayne Paula MD On 05/29/2019 09:40:05 Wayne Paula MD
[2019-05-29] MEDS: 0.9% Normal Saline 1,000 ML 150 ML IV (09:45)
[2019-05-29] MEDS: Acetaminophen 325 MG Tablet 650 MG PO (10:25)
[2019-05-29] MEDS: DULoxetine Hcl 30 MG Capsule PO (10:26)
[2019-05-29] MEDS: diazePAM 5 MG Tablet PO (10:26)
--- NOTE | 2019-05-29 11:06 | CRPHASE1_ITS ---
Patient Communication Former Patient:: Phase I - patient seen in 2019 PHII Cardiac Rehab Discussed with Patient:: Yes Guide to Cardiac Rehab Given to Patient:: Yes Cardiac Rehab Facility Choice List Given to Patient:: Yes Choice Program [facility] PHII:: Communication Given to CR, Refer to [facility] Plate Drying Machine Tender:: Wayne Paula Refer Phase II Cardiac Rehab:: Yes Sessions:: 36 sessions - 3 days/wk, 12 weeks Risk Factors/Lifestyle Family History: Family History (Last Reviewed 11/01/18 @ 09:55 by Bárbara Gay) Father CAD (coronary artery disease) Diabetes HLD (hyperlipidemia) Hypertension Mother Breast cancer Cancer Sister Lichen sclerosus Cardiac Rehabilitation Info Cardiac Rehabilitation Program Information: Cardiac Rehabilitation is important for patients like you who are recovering from a heart problem. Cardiac rehabilitation programs are recognized as integral to the continued care of the patient with coronary heart disease. The cardiac rehabilitation program is designed to optimize a patient's physical, psychological, and social functioning. Health day care home mother work in cardiac rehabilitation programs and assist you with getting the treatments you need to get stronger and healthier - like exercise, healthy eating habits, and medications. Cardiac rehabilitation has been show to help people with heart problems live longer and have better life enjoyment than people who do not go to cardiac rehabilitation. Please contact the Cardiac Rehabilitation Program at [facility] at in two weeks if you have not heard from them.
--- NOTE | 2019-05-29 11:08 | CRPH1.INSTRU ---
General Education CAD and cardiac anatomy and function:: Not instructed Explanation of diagnoses and procedures:: Not instructed Sign/Symptoms of WA:: Not instructed Antiplatelet therapy: Not instructed Proper use of NTG-SL: Not instructed Emergency procedures and activation of EMS: Not instructed Compliance of all prescribed medications: Not instructed - Patient seen in October 2018 discuusd program at that time
[2019-05-29] MEDS: Atorvastatin Calcium 80 MG Tablet PO (21:34)
[2019-05-30] VITALS (13 sets, daily range): BP systolic 146–160; BP diastolic 86–99; PULSE 61–91; RESP 13–24; TEMP 36.4–36.9; O2SAT 92–98
[2019-05-30 04:35] LABS: Hematocrit 49.6 % (40-54); Hemoglobin 17.5 g/dL (13.0-16.5); Mean Corp Hgb Conc 35.3 g/dL (32-36); Mean Corpuscular Hgb 31.2 pg (27.0-32.0); Mean Corpuscular Volume 88.4 fL (80-94); Mean Platelet Vol. 9.7 fl (6.2-12.0); Platelet Count 160 K/mm3 (150-450); RBC Distribution Width CV 11.7 % (11.6-14.6); RBC Distribution Width SD 37.5 fl (35.1-43.9); Red Blood Count 5.61 M/mm3 (4.6-6.2); White Blood Count 6.5 K/mm3 (4.4-11.0)
[2019-05-30 04:38] LABS: ALB/GLOB Ratio 1.2 RATIO (0.9-2.4); AST(SGOT) 43 U/L (15-37); Alanine Aminotransfer ALT/SGPT 85 U/L (16-61); Albumin, Serum 3.7 g/dL (3.2-5.0); Alkaline Phosphatase 79 U/L (45-117); Anion Gap 7 (5-15); BUN 9 mg/dL (7-18); BUN/Creat Ratio 11.4 RATIO (10-20); Calcium,Total 8.6 mg/dL (8.5-10.1); Chloride 105 mmol/L (98-107); Cholesterol 159 mg/dL (200); Creatinine, Serum 0.79 mg/dL (0.70-1.30); EST Glomerular Filtration Rate 108 mL/min (>60); Est Glom Filt Rate - Afr Amer 130 mL/min (>60); Estimated Creatinine Clearance 107.81 ml/min; Globulin 3.1 g/dL (2.2-4.2); Glucose 114 mg/dL (74-106); High Density Lipoprotein 35 mg/dL; Protein, Total 6.8 g/dL (6.4-8.2); Sodium Level 140 mmol/L (136-145); Triglycerides 250 mg/dL; Very Low Density Lipoprotein 50 mg/dL (5-40)
--- NOTE | 2019-05-30 08:58 | DCINST_ITS ---
May shower in (days): 1 Lifting Restrictions: 10 pounds and also avoid any pushing or pulling for 3 days after your test. Call your doctor if your incision/area has: Continuous Slow Oozing, Sudden Increased Bleeding, Increased Pain/ Swelling, Increased Redness, Foul Smelling Discharge, Swelling at the incision site Call your doctor if you observe: Fever of 101 or Higher, Shortness of breath, Chest pain Remove Dressing in (days):: 1 Cleanse incision/area with: Soap & Water Additional Dressing/Incision Instructions:: Keep the dressing (bandage) on until the next morning. You may then shower, but do not take a tub bath for 5 days after your test. It is normal to have some tenderness and discomfort at the puncture site. Sometimes bruising also occurs. However, if pain, numbness, or coldness occurs below the puncture site (in your leg, toes, arms or fingers) call your doctor at once. You may have a small, marble sized knot at the puncture site. This is normal. Do not rub it. It will go away in 4-6 weeks. Bleeding can occur from the area where the puncture was done. Blood may spurt or drip from the site. If blood spurts, apply pressure right away to stop bleeding and call 911. Although rare, bleeding into the tissue (hematoma) can also occur. If this happens, a large, firm area goose egg under the skin will appear. If any of these occur, lie down as flat as you can and have someone apply firm pressure to the cath site with a gauze pad or a clean washcloth for 10-15 minutes. Call 911 or go to the Emergency Department. Allergies/Adverse Reactions: Allergies ciprofloxacin [From Cipro] Allergy (Verified 05/17/19 13:09) Rash ciprofloxacin HCl [From Cipro] Allergy (Verified 05/17/19 13:09) Rash naproxen [From Naprosyn] Allergy (Verified 05/17/19 13:09) Hives amoxicillin [From Augmentin] Adverse Reaction (Severe, Verified 05/17/19 13:09) Hives clavulanic acid [From Augmentin] Adverse Reaction (Severe, Verified 05/17/19 13:09) Hives codeine Adverse Reaction (Intermediate, Verified 05/17/19 13:09) Nausea isosorbide Adverse Reaction (Intermediate, Verified 05/17/19 13:09) headache, cannot focus CIPRO Allergy (Uncoded 11/01/18 09:50) Rash Medications to take at Discharge Aspirin [Aspirin, Baby] 81 mg PO DAILY@0800 07/26/16 emollient combination no.43 topical cream 1 applic TOPICAL DAILY PRN g 09/27/18 Duloxetine Hcl [Cymbalta] 60 mg PO DAILY cap 11/07/18 clopidogrel 75 mg tablet 75 mg PO DAILY #90 tab 11/26/18 nitroglycerin 0.4 mg sublingual tablet 0.4 mg SUBLINGUAL Q5M PRN #25 tab 11/26/18 amlodipine 2.5 mg tablet 2.5 mg PO DAILY #30 tab 05/08/19 atorvastatin 80 mg tablet 80 mg PO QHS #90 tab 05/17/19 duloxetine 30 mg capsule,delayed release 30 mg PO DAILY 05/17/19 lisinopril 20 mg tablet 20 mg PO DAILY #90 tab 05/17/19 Nebivolol HCl [Bystolic (Beta Angie)] 2.5 mg PO DAILY #30 tab 05/30/19 The following prescriptions were given: Nebivolol HCl [Bystolic (Beta Angie)] 2.5 mg PO DAILY #30 tab Transmission Status: Received by GARIM[facility] [address] Orders to be completed after discharge: Phase II, Outpatient Cardiac Rehab Location: None Selected Primary Care Physician: Abundio Kilgore DO [Primary Care Provider] - Test Results: Test results from this visit will be discussed in further detail at your follow- up appointment, if applicable. Please Follow Up With: Emanuel Kelly MD When: 06/05 at 1130 Cardiac Rehabilitation Info Cardiac Rehabilitation Program Information: Cardiac Rehabilitation is important for patients like you who are recovering from a heart problem. Cardiac rehabilitation programs are recognized as integral to the continued care of the patient with coronary heart disease. The cardiac rehabilitation program is designed to optimize a patient's physical, psychological, and social functioning. Health family day care provider work in cardiac rehabilitation programs and assist you with getting the treatments you need to get stronger and healthier - like exercise, healthy eating habits, and medications. Cardiac rehabilitation has been show to help people with heart problems live longer and have better life enjoyment than people who do not go to cardiac rehabilitation. Please contact the Cardiac Rehabilitation Program at [facility] at in two weeks if you have not heard from them.
--- NOTE | 2019-05-30 09:17 | CASEMGMT ---
RN CM NOte: Anticipate dc today. Pt is independent, no dc needs identified. Plavix ordered, pt has prescription coverage through [employer]. Discussed with nurse, no needs identified. Valencia DICKN RN ACM
--- NOTE | 2019-05-30 09:40 | PN.CARD_ITS ---
Subjectve: Patient doing very well this morning. Right groin is clean/dry/intact, no thrills, bruits or hematoma. Hemoglobin and creatinine are within nominal limits. EKG and telemetry negative. No chest pain symptoms. Patient feels much better. Objective: Vital Signs Temp Pulse Resp BP Pulse Ox 97.9 F 69 15 152/93 H 94 05/30/19 04:00 05/30/19 07:20 05/30/19 07:00 05/30/19 07:00 05/30/19 07:00 Oxygen Delivery Method Room Air Weight: 223 lb 15.834 oz Body Mass Index (BMI) 32.1 Intake and Output for Last 24 Hours 05/28/19 05/29/19 05/30/19 23:59 23:59 23:59 Intake Total 2360 / 2860 620 / 620 Output Total 700 / 700 Balance 1660 / 2160 620 / 620 General: Awake, Alert, Oriented x 3 HEENT: PERRL, EOMI, Sclera Non Icteric Neck: Supple, Good ROM, No Lymph Node Enlargement Lungs: Clear to auscultation Cardiovascular: Regular Rhythm, Normal S1, Normal S2, No Murmurs, No Rubs, No Gallops Vascular: No Carotid Bruits, Normal Femoral Pulses, Normal Radial Pulses, Normal Dorsalis Pedal Pulse, Normal Posterior Tibial Pulses Abdomen: Bowel Sounds Present, Soft, Non Tender, No HSM, No Organomegaly Extremities: No Cyanosis, No Clubbing, No edema Neurological: No Focal Motor or Sensory Deficit 05/30/19 04:15: WBC 6.5, RBC 5.61, Hgb 17.5 H, Hct 49.6, MCV 88.4, MCH 31.2, MCHC 35.3, Plt Count 160, MPV 9.7 05/30/19 04:15: Sodium 140, Potassium 4.0, Chloride 105, Carbon Dioxide 28.0, Anion Gap 7, BUN 9, Creatinine 0.79, Est GFR (MDRD) Af Amer 130, Est GFR (MDRD) Non-Af 108, BUN/Creatinine Ratio 11.4, Glucose 114 H, Calcium 8.6, Total Bilirubin 1.10 H, Triglycerides 250 H, Cholesterol 159, LDL Cholesterol 74, VLDL Cholesterol 50 H, HDL Cholesterol 35 L Rhythm: EKG: ECHO: Stress Test: Cardiac Cath: PCI: CT Surgery: Holter monitor: EPS: PPM: CXR: Chest CT Scan: Medical Necessity - Tobacco Use Smoking Status: Former smoker Assessment/Plan 1. Coronary artery disease: Patient status post angioplasty and drug-eluting stenting to his left circumflex, and is doing quite well. He will continue maintain his aspirin and Plavix as outlined in the [facility]. He will continue his antihypertensive medications. His right groin is clean/dry/intact without e vidence of thrills, bruits or hematoma. Patient be discharged home and follow-up with Dr. Kelly going forward. He will be enrolled in cardiac rehab however he is unable to do so due to his work schedule. Patient has a number of exercise pieces of equipment at home, and wishes to do it at home. 2. Hyperlipidemia: Continue statin based medications. LDL should be less than 70. 3. Patient may be discharged home today. Code Visit Inpatient E&M: 29835 Subs Hosp L2
[2019-05-30] MEDS: DULoxetine Hcl 30 MG Capsule PO (09:57)
[2019-05-30] MEDS: Lisinopril 20 MG Tablet PO (09:57)
[2019-05-30] MEDS: DULoxetine Hcl 60 MG Capsule PO (09:57)
[2019-05-30] MEDS: Aspirin 81 MG TAB.CHEW PO (09:58)
[2019-05-30] MEDS: amLODIPine 2.5 MG Tablet PO (10:01)
[2019-05-30] MEDS: Clopidogrel Bisulfate 75 MG Tablet PO (10:01)
== END 2019-05-30 11:00 | disposition home or self-care (01) ==
LOC: CLSP 08:33 → ICU 09:33
PROVIDERS: Family Provider Family Medicine; PCP Family Medicine; Referring Provider Internal Medicine Cardiovascular Disease; Visit Provider Internal Medicine Cardiovascular Disease
DX: I25.10 Atherosclerotic heart disease of native coronary artery without angina pectoris (principal); R07.9 Chest pain, unspecified; E78.2 Mixed hyperlipidemia; I10 Essential (primary) hypertension; Z95.5 Presence of coronary angioplasty implant and graft; Z79.02 Long term (current) use of antithrombotics/antiplatelets; Z79.82 Long term (current) use of aspirin; Z87.891 Personal history of nicotine dependence; Z88.0 Allergy status to penicillin; Z88.1 Allergy status to other antibiotic agents; Z88.5 Allergy status to narcotic agent; Z88.6 Allergy status to analgesic agent; R53.83 Other fatigue; E66.9 Obesity, unspecified; Z68.32 Body mass index [BMI] 32.0-32.9, adult
CPT/HCPCS: 71046; 80053; 80061; 85027; 85347; 92928; 93005; 93454; 99152; C1760; J7030; J7040; Q9967; C1725; C1769; C1874; C1887; C1894; C9600

== ENCOUNTER → 2019-06-05 10:40 | Outpatient (CLI) | payer OTHER, SELFPAY ==
[2018-11-07 07:32] VITALS: BMI 31.7
[2019-05-29 09:25] VITALS: BMI 32.1
[2019-06-05 11:42] LABS: AST(SGOT) 33 U/L (15-37); Alanine Aminotransfer ALT/SGPT 86 U/L (16-61); Albumin, Serum 3.9 g/dL (3.2-5.0); Alkaline Phosphatase 89 U/L (45-117); Bilirubin, Direct 0.25 mg/dL (0.00-0.30); Cholesterol 147 mg/dL (200); Globulin 3.5 g/dL (2.2-4.2); High Density Lipoprotein 34 mg/dL; Protein, Total 7.4 g/dL (6.4-8.2); Triglycerides 184 mg/dL; Very Low Density Lipoprotein 37 mg/dL (5-40)
== END ==
PROVIDERS: Family Provider Family Medicine; PCP Family Medicine; Referring Provider Nurse Practitioner Family; Visit Provider Nurse Practitioner Family
DX: E78.2 Mixed hyperlipidemia (principal); I25.10 Atherosclerotic heart disease of native coronary artery without angina pectoris
CPT/HCPCS: 36415; 80061; 80076

== ENCOUNTER → 2019-07-29 13:27 | Outpatient (CLI) | payer OTHER, SELFPAY ==
[2018-11-07 07:32] VITALS: BMI 31.7
[2019-07-01 14:55] VITALS: BMI 31.4
[2019-07-29 13:39] VITALS: BP 139/98; PULSE 91; RESP 16; TEMP 36.9; O2SAT 98; BMI 31.8
== END ==
PROVIDERS: Family Provider Family Medicine; PCP Family Medicine; Referring Provider Specialist; Visit Provider Specialist
DX: E83.119 Hemochromatosis, unspecified (principal)
CPT/HCPCS: 99195

== ENCOUNTER → 2019-08-05 13:03 | Outpatient (CLI) | payer OTHER, SELFPAY ==
[2018-11-07 07:32] VITALS: BMI 31.7
[2019-07-29 13:39] VITALS: BMI 31.8
[2019-08-05 13:29] VITALS: BP 132/82; PULSE 88; RESP 14; TEMP 36.4; O2SAT 95; BMI 31.8
[2019-08-05 13:39] VITALS: BP 144/85; PULSE 81; RESP 16
== END ==
PROVIDERS: Family Provider Family Medicine; PCP Family Medicine; Referring Provider Specialist; Visit Provider Specialist
DX: E83.119 Hemochromatosis, unspecified (principal)
CPT/HCPCS: 99195; A4216

== ENCOUNTER → 2019-11-12 | Outpatient (CLI) | payer OTHER, SELFPAY ==
[2018-11-07 07:32] VITALS: BMI 31.7
[2019-08-05 13:29] VITALS: BMI 31.8
--- NOTE | 2019-11-12 16:01 | RAD_ITS ---
STUDY: X-RAY - ABDOMEN/PELVIS REASON FOR EXAM: Male, 54 years old. bloating, discomfort, abd pain TECHNIQUE: Single AP view of the abdomen / pelvis. COMPARISON: None. FINDINGS: Normal visualized lung bases. There is an unremarkable bowel gas pattern. There is no demonstrated free abdominal air. The visualized liver, spleen and kidneys are grossly normal in size and morphology. There are calcified phleboliths in the pelvis. There are diffuse degenerative changes of the visualized lumbar spine. RAD/Abdomen Single View IMPRESSION: Nonspecific gas pattern. Electronically Signed: Lorena Lucas MD at 0:20 EDT , Service support ,
== END | disposition home or self-care (01) ==
LOC: MTRAD 16:01
PROVIDERS: PCP Family Medicine; Referring Provider Family Medicine; Visit Provider Family Medicine
DX: R10.9 Unspecified abdominal pain (principal)
CPT/HCPCS: 74018

== ENCOUNTER → 2019-12-13 | Outpatient (CLI) | payer OTHER, SELFPAY ==
[2018-11-07 07:32] VITALS: BMI 31.7
[2019-08-05 13:29] VITALS: BMI 31.8
[2019-12-13 13:47] LABS: AST(SGOT) 39 U/L (15-37); Alanine Aminotransfer ALT/SGPT 90 U/L (16-61); Albumin, Serum 4.1 g/dL (3.2-5.0); Alkaline Phosphatase 92 U/L (45-117); Bilirubin, Direct 0.25 mg/dL (0.00-0.30); Cholesterol 158 mg/dL (200); Globulin 3.4 g/dL (2.2-4.2); High Density Lipoprotein 40 mg/dL; Protein, Total 7.5 g/dL (6.4-8.2); Triglycerides 176 mg/dL; Very Low Density Lipoprotein 35 mg/dL (5-40)
== END | disposition home or self-care (01) ==
LOC: MTLAB 09:34
PROVIDERS: PCP Family Medicine; Referring Provider Nurse Practitioner Family; Visit Provider Nurse Practitioner Family
DX: E78.5 Hyperlipidemia, unspecified (principal)
CPT/HCPCS: 36415; 80061; 80076

== ENCOUNTER 2020-01-24 13:34 | Observation (INO) | payer OTHER, SELFPAY ==
[2018-11-07 07:32] VITALS: BMI 31.7
[2020-01-06 12:48] VITALS: BMI 30.7
[2020-01-24] VITALS (8 sets, daily range): BP systolic 109–155; BP diastolic 63–89; PULSE 66–87; RESP 13–81; TEMP 36.6–36.9; O2SAT 17–98; BMI 30.9; BMI 30.2
--- NOTE | 2020-01-24 13:53 | EKG12_ITS ---
Test Reason : CP Blood Pressure : / mmHG Vent. Rate : 075 BPM Atrial Rate : 075 BPM P-R Int : 190 ms QRS Dur : 086 ms QT Int : 392 ms P-R-T Axes : 021 021 -01 degrees QTc Int : 437 ms Normal sinus rhythm Normal ECG Confirmed by TAYLOR ANTONIO, MARTHA ([id number]), legal editor STEPHANY MARIE ([id number]) on 01/28/2020 11:08:48 AM Referred By: ANNA Confirmed By:MARTHA VAZQUEZ MD
--- NOTE | 2020-01-24 13:54 | CT_ITS ---
STUDY: CT ABDOMEN AND PELVIS WITHOUT CONTRAST REASON FOR EXAM: Male, 55 years old. ABD PAIN, BLOATING, SOB RADIATION DOSAGE (If Supplied By Facility): CTDIvol = ( 14.76 ) mGy, DLP = ( 1010.48 ) mGycm TECHNIQUE: Transaxial images were obtained from the dome of the diaphragm to the symphysis pubis without oral contrast, and without intravenous contrast. Sagittal and coronal images were reconstructed. Individualized dose optimization techniques were used for this CT. COMPARISON: None. FINDINGS: The visualized lung bases are unremarkable. The visualized portions of the heart are within normal limits. Liver is unremarkable aside from a 2 cm cyst in the right lobe. Normal gallbladder and extrahepatic biliary system. Normal spleen. Normal pancreas. Normal bilateral adrenal glands. Normal right kidney. Normal left kidney. Normal visualized stomach. There are nondistended fluid-filled small bowel loops in the right lower quadrant suggestive of a focal ileus. Normal colon. The appendix is visualized and appears normal. Appendix best seen on coronal recon image 66 There is diffuse atherosclerotic calcification of the abdominal aorta, without a demonstrated aneurysm. Normal inferior vena cava. Normal retroperitoneum. Normal urinary bladder. There are prostatic calcifications. Small bilateral fat-containing inguinal hernias. There are diffuse degenerative changes of the visualized lumbar spine. CT/Abdomen/Pelvis W IV Cont ONLY IMPRESSION: No suspicious solid organ abnormality, simple right hepatic cyst, no specific follow-up is needed No CT evidence of acute inflammatory process, normal appendix visualized Focal small bowel ileus in the right lower quadrant No free intraperitoneal fluid, air, or suspicious adenopathy Electronically Signed: Aj Arshad MD at 15:25 EDT , Service support ,
--- NOTE | 2020-01-24 13:56 | ED.VIS.GEN ---
History of Present Illness Chief Complaint: Shortness of Breath Informant: Patient Onset: Today Context: Sudden Onset Timing: Intermittent Worsened by: Exertion Relieved by: Rest Narrative: Patient is a 55-year-old male with history of hypertension, coronary artery disease status post stenting x4 and hyperlipidemia presenting with xiphoid chest pain. Patient states it started when he was playing with this morning. He states the pain took his breath away. When he get it he would also feel very bloated in his abdomen. When he rest the pain would subside as well as the bloating. Had some radiation of pain to his left chest. Patient states he tried to chop wood again and his symptoms then returned. Again they subsided with rest. Patient tried again for third time and his symptoms returned again. At that time he also had an episode of nausea and vomiting brown bile. Patient called his PCP who recommended he come to the emergency room for evaluation given his medical history. Currently his only complaint is that he feels that his abdomen is bloated. He states he is chronic diarrhea but this is unchanged. Nuys any recent black or bloody stools. He denies any chest pain or difficulty breathing. He states he does feel slightly short of breath. He denies any swelling of his legs. He states his been compliant with all his medications. He denies any other complaints at this time. Past Medical History - Allergies and Home Meds Allergies/Adverse Reactions: Allergies ciprofloxacin [From Cipro] Allergy (Verified 01/24/20 13:35) Rash ciprofloxacin HCl [From Cipro] Allergy (Verified 01/24/20 13:35) Rash naproxen [From Naprosyn] Allergy (Verified 01/24/20 13:35) Hives amoxicillin [From Augmentin] Adverse Reaction (Severe, Verified 01/24/20 13:35) Hives clavulanic acid [From Augmentin] Adverse Reaction (Severe, Verified 01/24/20 13:35) Hives codeine Adverse Reaction (Intermediate, Verified 01/24/20 13:35) Nausea isosorbide Adverse Reaction (Intermediate, Verified 01/24/20 13:35) headache, cannot focus CIPRO Allergy (Uncoded 08/05/19 13:28) Rash Primary Care Physician: Abundio Kilgore DO [Primary Care Provider] - Past Medical History: - - Coronary artery disease, hypertension, hyperlipidemia Surgical History: - - Cardiac stents Lives: Spouse/ Significant Other Smoking Status: Former smoker Review of Systems General: Reports: Sweats. Denies: Chills, Fever Eyes: Denies: Visual changes - bilaterally, Diplopia ENT: Denies: Rhinorrhea, Sore throat Cardiovascular: Reports: Chest pain. Denies: Palpitations Respiratory: Reports: Dyspnea. Denies: Cough, Dyspnea on exertion Gastrointestinal: Reports: Nausea, Vomiting - X1. Denies: Abdominal pain, Diarrhea, Melena, Hematochezia Genitourinary: Denies: Dysuria, Hematuria, Frequency Musculoskeletal: Denies: Back pain, Extremity Pain Skin: Denies: Rash, Wounds Neurological: Denies: Headache, Weakness, Numbness Physical Exam Vital Signs/Narrative: Vital Signs Temp Pulse Resp BP Pulse Ox 01/24/20 13:36 97.8 F 78 16 148/89 H 97 Inital Vital Signs reviewed: Yes General: Well nourished, Well developed, No Acute Distress Head: Normocephalic, Atraumatic Eyes: Perrl, EOMI ENT: Moist mucous membranes, No rhinorrhea Neck: Supple, Nontender, No JVD Cardiovascular: Regular rate, Regular rhythm, No murmurs Respiratory: No distress, CTA bilaterally, Chest nontender. Negative for: Diminished, Decreased Air Movement Abdomen: Soft, Nontender, Nondistended, Normal bowel sounds. Negative for: Guarding, Rebound tenderness, Mass Back: Nontender, Normal Inspection Extremities: Nontender, No edema Skin: Normal color, No rash Neurological: Alert, Oriented x3, Cranial nerves II-XII grossly intact, Normal Strength, Normal Sensation Psychological: Normal affect, Normal Mood Diagnostic/Tx/Re-eval Chest X-Ray - ED: 1 View, Read by ED Physician, Read by Radiologist, No Acute Disease Clinical Impression(s) from Imaging Studies Abdomen/Pelvis CT 01/24/20 13:54 IMPRESSION: No suspicious solid organ abnormality, simple right hepatic cyst, no specific follow-up is needed No CT evidence of acute inflammatory process, normal appendix visualized Focal small bowel ileus in the right lower quadrant No free intraperitoneal fluid, air, or suspicious adenopathy Electronically Signed: Aj Arshad MD at 15:25 EDT , Service support , Chest X-Ray 01/24/20 15:04 IMPRESSION: Normal x-ray examination of the chest. Electronically Signed: Aj Arshad MD at 15:15 EDT , Service support , Laboratory Data 01/24/20 01/24/20 01/24/20 14:00 14:00 14:00 WBC 9.4 RBC 5.51 Hgb 17.1 H Hct 49.9 MCV 90.6 MCH 31.0 MCHC 34.3 RDW Std Deviation 38.2 RDW Coeff of Celeste 11.6 Plt Count 207 MPV 9.3 Immature Gran % (Auto) 0.400 Neut % (Auto) 74.7 H Lymph % (Auto) 16.5 L [place] % (Auto) 7.2 Eos % (Auto) 1.0 Baso % (Auto) 0.2 Absolute Neuts (auto) 7.1 Absolute Lymphs (auto) 1.56 Nucleated RBC % 0 PT 12.6 INR 1.0 Sodium 139 Potassium 3.8 Chloride 105 Carbon Dioxide 27.0 Anion Gap 7 BUN 13 Creatinine 0.95 Estim Creat Clear Calc 91.37 Est GFR (MDRD) Af Amer 105 Est GFR (MDRD) Non-Af 87 BUN/Creatinine Ratio 13.7 Glucose 83 Lactic Acid Calcium 9.1 Total Bilirubin 1.10 H Direct Bilirubin 0.27 AST 39 H ALT 94 H Alkaline Phosphatase 87 Troponin I < 0.015 B-Natriuretic Peptide Total Protein 7.2 Albumin 4.1 Globulin 3.1 Lipase 199 Urine Color Urine Clarity Urine pH Ur Specific [place] Urine Protein Urine Glucose (UA) Urine Ketones Urine Occult Blood Urine Nitrite Urine Bilirubin Urine Urobilinogen Ur Leukocyte Esterase Urine RBC Urine WBC Ur Squamous Epith Cells Urine Bacteria Urine Mucus 01/24/20 01/24/20 01/24/20 14:00 14:00 14:10 WBC RBC Hgb Hct MCV MCH MCHC RDW Std Deviation RDW Coeff of Celeste Plt Count MPV Immature Gran % (Auto) Neut % (Auto) Lymph % (Auto) [place] % (Auto) Eos % (Auto) Baso % (Auto) Absolute Neuts (auto) Absolute Lymphs (auto) Nucleated RBC % PT INR Sodium Potassium Chloride Carbon Dioxide Anion Gap BUN Creatinine Estim Creat Clear Calc Est GFR (MDRD) Af Amer Est GFR (MDRD) Non-Af BUN/Creatinine Ratio Glucose Lactic Acid 1.5 Calcium Total Bilirubin Direct Bilirubin AST ALT Alkaline Phosphatase Troponin I B-Natriuretic Peptide 15.9 Total Protein Albumin Globulin Lipase Urine Color Yellow Urine Clarity Sl. Cloudy Urine pH 7.0 Ur Specific [place] 1.005 Urine Protein 15 H Urine Glucose (UA) Normal Urine Ketones Negative Urine Occult Blood Negative Urine Nitrite Negative Urine Bilirubin Negative Urine Urobilinogen Normal Ur Leukocyte Esterase Negative Urine RBC 0 SEEN Urine WBC 0 SEEN Ur Squamous Epith Cells 0-5 SEEN Urine Bacteria 0 SEEN Urine Mucus 0 SEEN - Rhythm Strip Rhythm Strip: Sinus Rhythm Rate: 75 Ectopy: None - EKG Initial EKG Interpretation: Sinus Rhythm, - - Sinus rhythm at a rate of 75 Normal axis Normal intervals Nonspecific T wave inversion in 3 and aVF Interpreted by emergency medicine physician Prior: Changed - T wave inversion in lead aVF compared to prior EKG on 08/30/2018 - Medical Decision Making Patient is evaluated for discomfort in his epigastrium associate with exertion. Patient is a cardiac history and the presentation is concerning for an anginal equivalent. Patient does have a new T wave inversion in aVF but no other ischemic changes. Phone is negative. Patient is complained of this vague abdominal bloating. CT the abdomen and pelvis obtained which does not show any acute intra abdominal process. Discussed the case with cardiology on-call who is familiar with the patient, Dr. iNeto, who recommends admission and nuclear stress test in the morning. Patient was brought in for observation. He is given aspirin the emergency room. He is agreeable with this plan. He is stable for the general medical floor at time of disposition. ED Disposition - Plan for ED Patient: Diagnosis: Acute epigastric pain, History of coronary artery disease, Essential hypertension, Abnormal EKG Referrals: Abundio Kilgore DO [Primary Care Provider] -
[2020-01-24 14:15] LABS: Absolute Lymphocyte Count 1.56 X10^3/uL (0.83-4.51); Absolute Neutrophil Count 7.1 X10^3/uL (2.0-7.7); Basophil# 0.02 X10^3/uL; Basophil% 0.2 % (0-1); Eosinophil# 0.09 X10^3/uL; Hematocrit 49.9 % (40-54); Hemoglobin 17.1 g/dL (13.0-16.5); Lymphocyte # 1.56 X10^3/ul (4.0); Lymphocyte % 16.5 % (19-41); Mean Corp Hgb Conc 34.3 g/dL (32-36); Mean Corpuscular Volume 90.6 fL (80-94); Mean Platelet Vol. 9.3 fl (6.2-12.0); Monocyte# 0.68 X10^3/uL; Monocyte% 7.2 % (0-10); NRBC Flagged by Analyzer 0 % (0-5); Neutrophil # 7.05 X10^3/uL (2.7-7.7); Neutrophil % 74.7 % (47-70); Platelet Count 207 K/mm3 (150-450); RBC Distribution Width CV 11.6 % (11.6-14.6); RBC Distribution Width SD 38.2 fl (35.1-43.9); Red Blood Count 5.51 M/mm3 (4.6-6.2); White Blood Count 9.4 K/mm3 (4.4-11.0)
[2020-01-24 14:16] LABS: Bacteria 0 SEEN /hpf (None Seen); Mucous, Urine 0 SEEN /hpf (<or=2+); Red Blood Cells-Urine 0 SEEN /hpf (0-5); White Blood Cells 0 SEEN /hpf (0-5)
[2020-01-24 14:18] LABS: Color, Urine Yellow (Yellow); Glucose, Dipstick Normal (Normal); Ketone-Dipstick Negative (Negative); Leukocyte Esterase-Dipstick Negative /ul (Negative); Nitrite-Dipstick Negative (Negative); Occult Blood-Urine Negative /ul (Negative); Protein-Dipstick 15 mg/dl (Negative); Specific Gravity, Urine 1.005 (1.002-1.030); Urine Bilirubin Dipstick Negative (Negative); Urine Clarity Sl. Cloudy (Clear); Urine Urobilinogen Normal (Normal)
[2020-01-24 14:24] LABS: Prothrombin Time (Protime)PT. 12.6 SECONDS (11.7-14.9)
[2020-01-24 14:25] LABS: Squamous Epithelial Cells - UA 0-5 SEEN /hpf (0-5)
[2020-01-24 14:33] LABS: AST(SGOT) 39 U/L (15-37); Alanine Aminotransfer ALT/SGPT 94 U/L (16-61); Albumin, Serum 4.1 g/dL (3.2-5.0); Alkaline Phosphatase 87 U/L (45-117); Anion Gap 7 (5-15); BUN 13 mg/dL (7-18); BUN/Creat Ratio 13.7 RATIO (10-20); Bilirubin, Direct 0.27 mg/dL (0.00-0.30); Calcium,Total 9.1 mg/dL (8.5-10.1); Chloride 105 mmol/L (98-107); Creatinine, Serum 0.95 mg/dL (0.70-1.30); EST Glomerular Filtration Rate 87 mL/min (>60); Est Glom Filt Rate - Afr Amer 105 mL/min (>60); Estimated Creatinine Clearance 91.37 ml/min; Globulin 3.1 g/dL (2.2-4.2); Glucose 83 mg/dL (74-106); Lipase 199 U/L (73-393); Potassium 3.8 mmol/L (3.5-5.1); Protein, Total 7.2 g/dL (6.4-8.2); Sodium Level 139 mmol/L (136-145)
[2020-01-24 14:36] LABS: Lactic Acid 1.5 mmol/L (0.4-1.9)
[2020-01-24 15:02] LABS: BNP,B-Type NATRIURETIC PEPTIDE 15.9 pg/mL (0-100)
--- NOTE | 2020-01-24 15:04 | RAD_ITS ---
STUDY: X-RAY CHEST REASON FOR EXAM: Male, 55 years old. SUDDEN ONSET OF SOB WITH SUBSTERNAL PAIN AND BLOATING OF ABDOMEN TECHNIQUE: PA and lateral views of the chest. COMPARISON: 05/17/2019 FINDINGS: The lungs are clear and expanded. There is no demonstrated pleural abnormality. Normal size heart. Normal mediastinum and fred. Normal visualized pulmonary arteries. Normal visualized aortic arch and descending thoracic aorta. Normal visualized thoracic spine. Normal visualized ribs, clavicles, and shoulders. There is no demonstrated abnormality of the visualized soft tissue structures of the upper abdomen. RAD/Chest PA and Lateral IMPRESSION: Normal x-ray examination of the chest. Electronically Signed: Aj Arshad MD at 15:15 EDT , Service support ,
--- NOTE | 2020-01-24 16:23 | NURSING ---
PCU PAINTSIL CP
[2020-01-24] MEDS: Aspirin 325 MG Tablet PO (17:37)
--- NOTE | 2020-01-24 19:06 | PCM.HP.STD ---
<Josue Lennon - Last Filed: 01/24/20 19:06> Problem List (1) Chest pain Status: Acute (2) History of coronary artery disease Status: Chronic (3) Mixed hyperlipidemia Status: Chronic (4) Presence of stent in coronary artery Status: Chronic Comment: PTCA/stent of the prox RCA and posterolateral branch of the RCA 09/15/03; PTCA/ISRRAEL to the prox PL branch of the RCA 11/06/18; Single vessel CAD of the mid LCX Non obstructive coronary arteries Successful PTCA/ISRRAEL of mid LCX with a 2.5 x 28 Promus Synergy, post dilated with a 3.0 x 12 NC balloon at 16 jaskaran; 75%-->0%, no dissection. Pt had identical CP during stent deployment. 05/29/2019 (5) Essential hypertension Status: Chronic (6) Obesity (BMI 30.0-34.9) Status: Chronic History of Present Illness Date of Admission: 01/24/20 Chief Complaint: chest/epigastric pain The patient is a 55 year old M with pmhx of CAD with prior stent, HTN, HLD, who presents to the ER with c/o xiphoid/midepigastric pain, that he describes as sharp in quality. This began suddenly today when he was splitting wood. He would stop and rest and the pain would go away, however it returned 2 more times when he was exerting himself. He feels like he has a pressure in his belly that is pushing upward associated with some nausea. He came to the ER as his called his doctor who advised he comes to the ER. Ee has a hx of CAD with prior Stent, he is a pt of Dr. Kelly. Currently he still complains of the pressure pushing up. In the ER EKG shows nonspecific changes, trop neg, cxr neg, however CT abd shos focal small bowel ileus in the RLQ. He had a normal BM this AM. [] Past Medical History Past Medical History (Chronic Problems): Chronic Problems (Last Reviewed 07/01/19 @ 14:57 by Ratna Philip) History of coronary artery disease (Chronic) Mixed hyperlipidemia (Chronic) Presence of stent in coronary artery (Chronic 05/29/19) PTCA/stent of the prox RCA and posterolateral branch of the RCA 09/15/03; PTCA/ISRRAEL to the prox PL branch of the RCA 11/06/18; Single vessel CAD of the mid LCX Non obstructive coronary arteries Successful PTCA/ISRRAEL of mid LCX with a 2.5 x 28 Promus Synergy, post dilated with a 3.0 x 12 NC balloon at 16 jaskaran; 75%-->0%, no dissection. Pt had identical CP during stent deployment. 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) Medical History: Medical History (Last Reviewed 07/01/19 @ 14:57 by Ratna Philip) Mixed hyperlipidemia (Chronic) E78.2 Essential hypertension (Chronic) I10 Obesity (BMI 30.0-34.9) (Chronic) E66.9 Atherosclerotic heart disease of huslia coronary artery without angina pectoris (Chronic) I25.10 Chest discomfort R07.89 Chest pain (Resolved) R07.9 CAD (coronary artery disease) (Inactive) I25.10 Allergies ciprofloxacin [From Cipro] Allergy (Verified 01/24/20 13:35) Rash ciprofloxacin HCl [From Cipro] Allergy (Verified 01/24/20 13:35) Rash naproxen [From Naprosyn] Allergy (Verified 01/24/20 13:35) Hives amoxicillin [From Augmentin] Adverse Reaction (Severe, Verified 01/24/20 13:35) Hives clavulanic acid [From Augmentin] Adverse Reaction (Severe, Verified 01/24/20 13:35) Hives codeine Adverse Reaction (Intermediate, Verified 01/24/20 13:35) Nausea isosorbide Adverse Reaction (Intermediate, Verified 01/24/20 13:35) headache, cannot focus CIPRO Allergy (Uncoded 08/05/19 13:28) Rash Home Medications: Ambulatory Orders Medication Instructions Recorded Amlodipine Besylate [Norvasc] 2.5 mg PO DAILY 01/24/20 Apremilast [Otezla] 30 mg PO BID 01/24/20 Aspirin [Aspirin, Baby] 81 mg PO DAILY@0800 01/24/20 Atorvastatin Calcium [Lipitor] 80 mg PO QHS 01/24/20 Cetirizine HCl [All Day Allergy] 10 mg PO DAILY 01/24/20 Clopidogrel Bisulfate [Clopidogrel] 75 mg PO DAILY 01/24/20 Duloxetine HCl 30 mg PO DAILY 01/24/20 Duloxetine HCl 60 mg PO DAILY 01/24/20 Lisinopril 20 mg PO DAILY 01/24/20 Nebivolol HCl [Bystolic] 2.5 mg PO DAILY 01/24/20 Surgical History: Surgical History (Last Reviewed 07/01/19 @ 14:57 by Ratna Philip) Presence of stent in coronary artery (Chronic) Onset Date: 05/29/19 Z95.5 PTCA/stent of the prox RCA and posterolateral branch of the RCA 09/15/03; PTCA/ISRRAEL to the prox PL branch of the RCA 11/06/18; Single vessel CAD of the mid LCX Non obstructive coronary arteries Successful PTCA/ISRRAEL of mid LCX with a 2.5 x 28 Promus Synergy, post dilated with a 3.0 x 12 NC balloon at 16 jaskaran; 75%-->0%, no dissection. Pt had identical CP during stent deployment. 05/29/2019 History of percutaneous transluminal coronary angioplasty (Chronic) Onset Date: ~09/15/03 Z98.61 PTCA/stent of the prox RCA and posterolateral branch of the RCA 09/15/03 H/O reconstruction of anterior cruciate ligament tear Z98.890 bilateral History of bilateral inguinal hernia repair Onset Date: ~1976 Z98.890, Z87.19 History of tonsillectomy and adenoidectomy Onset Date: ~1970 Z98.890 Status post anal fissurectomy Z98.890, Z87.19 Surgical History: cataract, herniorrhaphy, - - BL ACL Psychiatric History: No pertinent psych hx Lives: Spouse/ Significant Other Smoking Status: Former smoker Tobacco Use: Non-smoker Alcohol: None Drugs: None - *Family History Maternal Family History: Family History (Last Reviewed 01/24/20 @ 19:11 by STEVE Sanchez) Father CAD (coronary artery disease) Diabetes HLD (hyperlipidemia) Hypertension Mother Breast cancer Cancer Sister Lichen sclerosus Review of Systems Constitutional: Denies: Chills, Fever, Weight Change HEENT: Denies: Head Aches, Sinus Congestion, Sinus Drainage Cardiovascular: Reports: Chest Pain. Denies: Palpitations Respiratory: Denies: Cough, Shortness of Breath, Shortness of breath at rest, Shortness of breath upon exertion, Sputum production Gastrointestinal: Reports: Nausea, - - bloating. Denies: Abdominal Pain, Vomiting Genitourinary: Denies: Dysuria Musculoskeletal: Denies: Joint Pain, Joint Tenderness Skin: Denies: Rash, Wounds Neurological: Denies: Numbness, Tingling, Focal weakness Psychiatric: Denies: Anxiety, Depression, Homicidal Ideations, Suicidal Ideations Hematologic/ Lymphatic: Denies: Easy Bruising, Easy Bleeding VTE Information - Inpt Only VTE Present on Admission: No VTE Mechan Device Prophylaxis: None VTE Pharm Prophylaxis ordered?: Yes Patient Problems: Active and Suspected Problems (Last Reviewed 07/01/19 @ 14:57 by Ratna Philip) Acute epigastric pain (Acute) Abnormal EKG (Acute) Chest pain (Acute) - Physical Exam Vitals/I&O's: Vital Signs Temp Pulse Resp BP Pulse Ox 98.4 F 72 18 133/84 H 97 01/24/20 17:56 01/24/20 18:12 01/24/20 17:56 01/24/20 17:56 01/24/20 17:56 Oxygen Flow Rate (L/min) 2 Oxygen Delivery Method Room Air Weight: 216 lb 7.903 oz Body Mass Index (BMI) 30.2 General: Alert, Oriented x3, Cooperative HEENT: Atraumatic, PERRLA, EOMI, Normocephalic Neck: Supple, No JVD, Negative Carotid Bruits Lungs: Clear to auscultation, Normal air movement Cardiovascular: Regular rate, No murmurs Abdomen: Bowel Sounds Present, Soft, Non Tender Extremities: No edema, Capillary Refill Less than 3 Seconds Skin: No rashes, No breakdown Musculoskeletal: No Tenderness to Palpation of Joints or Extremities Neurological: Cranial nerves II-XII grossly intact Psych/Mental Status: Normal Affect, Appropriate Laboratory Results 01/24/20 14:00: WBC 9.4, RBC 5.51, Hgb 17.1 H, Hct 49.9, MCV 90.6, MCH 31.0, MCHC 34.3, RDW Std Deviation 38.2, RDW Coeff of Celeste 11.6, Plt Count 207, MPV 9.3, Immature Gran % (Auto) 0.400, Neut % (Auto) 74.7 H, Lymph % (Auto) 16.5 L, Sutton % (Auto) 7.2, Eos % (Auto) 1.0, Baso % (Auto) 0.2, Absolute Neuts (auto) 7.1, Absolute Lymphs (auto) 1.56, Nucleated RBC % 0 01/24/20 14:00: Sodium 139, Potassium 3.8, Chloride 105, Carbon Dioxide 27.0, Anion Gap 7, BUN 13, Creatinine 0.95, Estim Creat Clear Calc 91.37, Est GFR (MDRD) Af Amer 105, Est GFR (MDRD) Non-Af 87, BUN/Creatinine Ratio 13.7, Glucose 83, Calcium 9.1, Total Bilirubin 1.10 H, Direct Bilirubin 0.27, AST 39 H, ALT 94 H, Alkaline Phosphatase 87, Troponin I < 0.015, Total Protein 7.2, Albumin 4.1, Globulin 3.1, Lipase 199 01/24/20 14:00: PT 12.6, INR 1.0 01/24/20 14:00: Lactic Acid 1.5 01/24/20 14:00: B-Natriuretic Peptide 15.9 01/24/20 14:10: Urine Color Yellow, Urine Clarity Sl. Cloudy, Urine pH 7.0, Ur Specific [place] 1.005, Urine Protein 15 H, Urine Glucose (UA) Normal, Urine Ketones Negative, Urine Occult Blood Negative, Urine Nitrite Negative, Urine Bilirubin Negative, Urine Urobilinogen Normal, Ur Leukocyte Esterase Negative, Urine RBC 0 SEEN, Urine WBC 0 SEEN, Ur Squamous Epith Cells 0-5 SEEN, Urine Bacteria 0 SEEN, Urine Mucus 0 SEEN 01/24/20 18:05: Troponin I < 0.015 Current Medications Acetaminophen (Tylenol) 650 mg PO Q6H PRN PRN PRN Reason: Pain Score 1-10/Temp > 100.7 F Al Hydroxide/Mg Hydroxide (Mylanta Ii) 30 ml PO Q6H PRN PRN PRN Reason: Gastric Burning Dextrose (D50w Syringe) 0 gm IV X1 PRN; Protocol PRN Reason: Hypoglycemia Enoxaparin Sodium (Lovenox) 40 mg SC DAILY JORDEN Glucagon () 1 mg IM .X1 PRN PRN Reason: Hypoglycemia Sodium Chloride () 500 mls @ 15 mls/hr IV PRN PRN PRN Reason: Blood Transfusion Sodium Chloride () 250 mls @ 15 mls/hr IV .[id number] PRN PRN Reason: Saline Flush Sodium Chloride () 250 mls @ 15 mls/hr IV .[id number] PRN PRN Reason: Additional IVPB Infusion Insulin Human Lispro (Humalog Kwikpen (Bkc)) 0 unit SC ACHS JORDEN; Protocol Sodium Chloride () 10 - 40 ml IV UD PRN PRN Reason: SALINE FLUSH Assessment/Plan All Active Problems (Last Reviewed 07/01/19 @ 14:57 by Ratna Philip) Acute epigastric pain (Acute) Abnormal EKG (Acute) Chest pain (Acute) Chest pain (Resolved) 1. Chest pain in the setting of CAD with prior stent - trop neg, CXR neg, ekg nonspecific changes. Cycle enzymes, repeat AM EKG. CT abd with quetsionable ileus however pt had normal BM this AM. He had a heart caths last year 10/2018 at which time he had a ISRRAEL to the RCA and ISRRAEL to the LCX Apr 2019. -lipase neg, bnp neg, UA neg, mild hgb elevation on cbc. -continue norvasc, statin, plavix, lisinopril, nebivolol 2. HTN - mildly elevated 3. HLD - statin 4. Psoriasis/Psoriatic arthritis - otezla DVT ppx: lovenox This patient was seen by Josue Lennon PA-C under the supervision of Dr. Leos. <Reema Leos - Last Filed: 01/24/20 22:23> History of Present Illness The patient is a 55 year old M [] Past Medical History Medical History: Medical History (Last Reviewed 07/01/19 @ 14:57 by Ratna Philip) Mixed hyperlipidemia (Chronic) E78.2 Essential hypertension (Chronic) I10 Obesity (BMI 30.0-34.9) (Chronic) E66.9 Atherosclerotic heart disease of [place] coronary artery without angina pectoris (Chronic) I25.10 Chest discomfort R07.89 Chest pain (Resolved) R07.9 CAD (coronary artery disease) (Inactive) I25.10 Allergies ciprofloxacin [From Cipro] Allergy (Verified 01/24/20 13:35) Rash ciprofloxacin HCl [From Cipro] Allergy (Verified 01/24/20 13:35) Rash naproxen [From Naprosyn] Allergy (Verified 01/24/20 13:35) Hives amoxicillin [From Augmentin] Adverse Reaction (Severe, Verified 01/24/20 13:35) Hives clavulanic acid [From Augmentin] Adverse Reaction (Severe, Verified 01/24/20 13:35) Hives codeine Adverse Reaction (Intermediate, Verified 01/24/20 13:35) Nausea isosorbide Adverse Reaction (Intermediate, Verified 01/24/20 13:35) headache, cannot focus CIPRO Allergy (Uncoded 08/05/19 13:28) Rash Surgical History: Surgical History (Last Reviewed 07/01/19 @ 14:57 by Ratna Philip) Presence of stent in coronary artery (Chronic) Onset Date: 05/29/19 Z95.5 PTCA/stent of the prox RCA and posterolateral branch of the RCA 09/15/03; PTCA/ISRRAEL to the prox PL branch of the RCA 11/06/18; Single vessel CAD of the mid LCX Non obstructive coronary arteries Successful PTCA/ISRRAEL of mid LCX with a 2.5 x 28 Promus Synergy, post dilated with a 3.0 x 12 NC balloon at 16 jaskaran; 75%-->0%, no dissection. Pt had identical CP during stent deployment. 05/29/2019 History of percutaneous transluminal coronary angioplasty (Chronic) Onset Date: ~09/15/03 Z98.61 PTCA/stent of the prox RCA and posterolateral branch of the RCA 09/15/03 H/O reconstruction of anterior cruciate ligament tear Z98.890 bilateral History of bilateral inguinal hernia repair Onset Date: ~1976 Z98.890, Z87.19 History of tonsillectomy and adenoidectomy Onset Date: ~1970 Z98.890 Status post anal fissurectomy Z98.890, Z87.19 - *Family History Maternal Family History: Family History (Last Reviewed 01/24/20 @ 19:11 by STEVE Sanchez) Father CAD (coronary artery disease) Diabetes HLD (hyperlipidemia) Hypertension Mother Breast cancer Cancer Sister Lichen sclerosus - Physical Exam Vitals/I&O's: Vital Signs Temp Pulse Resp BP Pulse Ox 98.4 F 80 16 133/84 H 97 06/26/20 17:56 01/24/20 20:37 01/24/20 20:37 01/24/20 17:56 01/24/20 19:10 Oxygen Flow Rate (L/min) 2 Oxygen Delivery Method Room Air Weight: 98.2 kg Body Mass Index (BMI) 30.2 Laboratory Results 01/24/20 14:00: WBC 9.4, RBC 5.51, Hgb 17.1 H, Hct 49.9, MCV 90.6, MCH 31.0, MCHC 34.3, RDW Std Deviation 38.2, RDW Coeff of Celeste 11.6, Plt Count 207, MPV 9.3, Immature Gran % (Auto) 0.400, Neut % (Auto) 74.7 H, Lymph % (Auto) 16.5 L, Sutton % (Auto) 7.2, Eos % (Auto) 1.0, Baso % (Auto) 0.2, Absolute Neuts (auto) 7.1, Absolute Lymphs (auto) 1.56, Nucleated RBC % 0 01/24/20 14:00: Sodium 139, Potassium 3.8, Chloride 105, Carbon Dioxide 27.0, Anion Gap 7, BUN 13, Creatinine 0.95, Estim Creat Clear Calc 91.37, Est GFR (MDRD) Af Amer 105, Est GFR (MDRD) Non-Af 87, BUN/Creatinine Ratio 13.7, Glucose 83, Calcium 9.1, Total Bilirubin 1.10 H, Direct Bilirubin 0.27, AST 39 H, ALT 94 H, Alkaline Phosphatase 87, Troponin I < 0.015, Total Protein 7.2, Albumin 4.1, Globulin 3.1, Lipase 199 01/24/20 14:00: PT 12.6, INR 1.0 01/24/20 14:00: Lactic Acid 1.5 01/24/20 14:00: B-Natriuretic Peptide 15.9 01/24/20 14:10: Urine Color Yellow, Urine Clarity Sl. Cloudy, Urine pH 7.0, Ur Specific [place] 1.005, Urine Protein 15 H, Urine Glucose (UA) Normal, Urine Ketones Negative, Urine Occult Blood Negative, Urine Nitrite Negative, Urine Bilirubin Negative, Urine Urobilinogen Normal, Ur Leukocyte Esterase Negative, Urine RBC 0 SEEN, Urine WBC 0 SEEN, Ur Squamous Epith Cells 0-5 SEEN, Urine Bacteria 0 SEEN, Urine Mucus 0 SEEN 01/24/20 18:05: Troponin I < 0.015 01/24/20 20:35: Troponin I < 0.015 01/24/20 21:03: POC Glucose 117 H Current Medications Acetaminophen (Tylenol) 650 mg PO Q6H PRN PRN PRN Reason: Pain Score 1-10/Temp > 100.7 F Al Hydroxide/Mg Hydroxide (Mylanta Ii) 30 ml PO Q6H PRN PRN PRN Reason: Gastric Burning Amlodipine Besylate (Norvasc) 2.5 mg PO DAILY [facility] Aspirin (Aspirin, Baby) 81 mg PO DAILY@0800 JORDEN Atorvastatin Calcium (Lipitor) 80 mg PO QHS [facility] Last Admin: 01/24/20 21:05 Dose: 80 mg Documented by: Clopidogrel Bisulfate (Plavix) 75 mg PO DAILY [facility] Dextrose (D50w Syringe) 0 gm IV X1 PRN; Protocol PRN Reason: Hypoglycemia Duloxetine HCl (Cymbalta) 30 mg PO DAILY [facility] Duloxetine HCl (Cymbalta) 60 mg PO DAILY [facility] Enoxaparin Sodium (Lovenox) 40 mg SC DAILY [facility] Glucagon () 1 mg IM .X1 PRN PRN Reason: Hypoglycemia Sodium Chloride () 500 mls @ 15 mls/hr IV PRN PRN PRN Reason: Blood Transfusion Sodium Chloride () 250 mls @ 15 mls/hr IV .[id number] PRN PRN Reason: Saline Flush Sodium Chloride () 250 mls @ 15 mls/hr IV .[id number] PRN PRN Reason: Additional IVPB Infusion Insulin Human Lispro (Humalog Kwikpen (Bkc)) 0 unit SC ACHS [facility]; Protocol Last Admin: 01/24/20 21:07 Dose: Not Given Documented by: Lisinopril (Zestril) 20 mg PO DAILY [facility] Loratadine (Claritin) 10 mg PO DAILY [facility] Nebivolol (Bystolic) 2.5 mg PO DAILY [facility] Sodium Chloride () 10 - 40 ml IV UD PRN PRN Reason: SALINE FLUSH Last Admin: 01/24/20 21:05 Dose: 10 ml Documented by: Assessment/Plan This patient was seen in conjunction with STEVE Sanchez. I have independently interviewed and examined the patient and reviewed pertinent historical, laboratory, and other data. Please refer to STEVE Sanchez note for his patient's presentation, findings, and recommendations. I have reviewed and his note and concur with his documentation 5-year-old male with past medical history of CAD status post stent, hypertension, hyperlipidemia who comes in complaining of midepigastric pain that happened as he was splitting wood. This happens about 3 times and lasted 5 minutes each time. It was associated with a sensation of shortness of breath. Denied nausea or vomiting or diaphoresis or dizziness or palpitations. Vitals in the ED were stable, blood pressure slightly elevated. Admitting blood work was unremarkable. Troponins were negative. EKG shows normal sinus rhythm. Physical Exam: Gen: Comfortable, not pale, not jaundiced, on 2L oxygen CVS:HS I +II, regular, no murmurs RESP: CTA GI: BS present and normal, soft, nontender, no palpable organs EXT:No edema ASSESSMENT: 1. Chest pain, rule out ACS 2. Hypertension 3. Hyperlipidemia 4. Psoriasis/psoriatic arthritis Plan: Continue to monitor on telemetry, trend troponins Nuclear stress test in a.m. OBSV E&M: [id number] Initial observation care L3
[2020-01-24] MEDS: 0.9% Saline Lock 10 ML Syringe IV (21:05)
[2020-01-24] MEDS: Atorvastatin Calcium 80 MG Tablet PO (21:05)
[2020-01-24 21:15] LABS: Bedside Glucose 117 mg/dL (70-110)
[2020-01-25] VITALS (7 sets, daily range): BP systolic 120–135; BP diastolic 72–92; PULSE 65–80; RESP 16–17; TEMP 36.8; O2SAT 93–98
--- NOTE | 2020-01-25 04:51 | EKG12_ITS ---
Test Reason : AM EKG Blood Pressure : / mmHG Vent. Rate : 061 BPM Atrial Rate : 061 BPM P-R Int : 200 ms QRS Dur : 090 ms QT Int : 432 ms P-R-T Axes : 037 049 003 degrees QTc Int : 434 ms Normal sinus rhythm Normal ECG When compared with ECG of 24-JAN-2020 17:54, MANUAL COMPARISON REQUIRED, DATA IS UNCONFIRMED Confirmed by TRISHA RODARTE ([id number]), videotape editor JANNETH CONWAY ([id number]) on 01/30/2020 1:27:36 PM Referred By: BAKARI Confirmed By:TRISHA RODARTE
--- NOTE | 2020-01-25 05:00 | EKG12_ITS ---
Test Reason : CP ADMISSION Blood Pressure : / mmHG Vent. Rate : 077 BPM Atrial Rate : 077 BPM P-R Int : 174 ms QRS Dur : 094 ms QT Int : 406 ms P-R-T Axes : 029 049 006 degrees QTc Int : 459 ms Normal sinus rhythm Normal ECG When compared with ECG of 30-MAY-2019 05:25, No significant change was found Confirmed by TRISHA RODARTE ([id number]), newspaper editor STEPHANY MARIE ([id number]) on 01/30/2020 12:09:14 PM Referred By: ADY Confirmed By:TRISHA RODARTE
[2020-01-25] MEDS: Aspirin 81 MG TAB.CHEW PO (06:09)
[2020-01-25] MEDS: Lisinopril 20 MG Tablet PO (06:09)
[2020-01-25] MEDS: Clopidogrel Bisulfate 75 MG Tablet PO (06:09)
[2020-01-25 06:55] LABS: Absolute Lymphocyte Count 2.07 X10^3/uL (0.83-4.51); Basophil# 0.02 X10^3/uL; Basophil% 0.3 % (0-1); Eosinophil# 0.17 X10^3/uL; Eosinophils% 2.9 % (0-5); Hematocrit 48.7 % (40-54); Hemoglobin 16.6 g/dL (13.0-16.5); Lymphocyte # 2.07 X10^3/ul (4.0); Lymphocyte % 34.9 % (19-41); Mean Corp Hgb Conc 34.1 g/dL (32-36); Mean Corpuscular Hgb 31.2 pg (27.0-32.0); Mean Corpuscular Volume 91.5 fL (80-94); Mean Platelet Vol. 9.6 fl (6.2-12.0); Monocyte# 0.65 X10^3/uL; NRBC Flagged by Analyzer 0 % (0-5); Neutrophil # 3.01 X10^3/uL (2.7-7.7); Neutrophil % 50.7 % (47-70); Platelet Count 181 K/mm3 (150-450); RBC Distribution Width CV 11.9 % (11.6-14.6); RBC Distribution Width SD 39.1 fl (35.1-43.9); Red Blood Count 5.32 M/mm3 (4.6-6.2); White Blood Count 5.9 K/mm3 (4.4-11.0)
[2020-01-25 07:08] LABS: Anion Gap 7 (5-15); BUN 12 mg/dL (7-18); BUN/Creat Ratio 13.8 RATIO (10-20); Calcium,Total 8.5 mg/dL (8.5-10.1); Chloride 104 mmol/L (98-107); Creatinine, Serum 0.87 mg/dL (0.70-1.30); EST Glomerular Filtration Rate 96 mL/min (>60); Est Glom Filt Rate - Afr Amer 116 mL/min (>60); Estimated Creatinine Clearance 99.77 ml/min; Glucose 93 mg/dL (74-106); Potassium 3.6 mmol/L (3.5-5.1); Sodium Level 139 mmol/L (136-145)
[2020-01-25] MEDS: Loratadine 10 MG Tablet PO (10:21)
[2020-01-25] MEDS: DULoxetine Hcl 30 MG Capsule PO (10:22)
[2020-01-25] MEDS: amLODIPine 2.5 MG Tablet PO (10:22)
[2020-01-25] MEDS: DULoxetine Hcl 60 MG Capsule PO (10:22)
--- NOTE | 2020-01-25 10:22 | STRESSREP ---
Stress Test Report Date: 01-25-2020 Procedure: Exercise tolerance test/imaging study Indications: Chest pain; CAD; PCI Consent: Per the patient Procedure: The patient exercised on a Dariel protocol for 11 minutes and 30 seconds completing Stage III and 2 minutes and 30 seconds of Stage IV achieving a peak heart rate of 155 bpm (95 % predicted maximal heart rate) with a peak blood pressure 160/68 mmHg and a peak MET capacity of 13 METs. The baseline ECG demonstrated normal sinus rhythm. The peak exercise ECG demonstrated no obvious ECG changes. There were no cardiac dysrhythmias pretest, during exercise, or recovery. The functional capacity was considered good. There was no complaint of chest discomfort during exercise or recovery. The examination was discontinued secondary to fatigue. Impression: 1. Technically adequate (percent predicted maximal heart rate greater than 85%) exercise tolerance test 2. Peak exercise ECG with no obvious ECG changes 3. There were no cardiac dysrhythmias pretest, during exercise, or recovery 4. Nuclear images pending Myocardial perfusion imaging study: Technique: The patient was injected with 15.0 mCi of technetium 99m Cardiolite and subsequently rest SPECT Cardiolite nuclear imaging was obtained in the horizontal long, vertical long, and short axis views. The patient exercised on a Dariel protocol for 11 minutes and 30 seconds completing Stage III and 2 minutes and 30 seconds of Stage IV achieving a peak heart rate of 155 bpm (95 % predicted maximal heart rate) with a peak blood pressure 160/68 mmHg and a peak MET capacity of 13 METs. The patient was injected with 45.0 mCi of technetium 99m Cardiolite and subsequently stress SPECT Cardiolite nuclear imaging was obtained in the horizontal long, vertical long, and short axis views. A gated Cardiolite study at peak stress was obtained. Interpretation: Rest and stress SPECT Cardiolite nuclear imaging status post realignment, normalization, and attenuation correction, demonstrates the appearance of relative uniform tracer uptake and myocardial perfusion appearing within normal limits. There is end systolic thickening and brightening. The gated Cardiolite study demonstrates myocardial thickening and inward wall motion. The reported LVEF is 73 %. Impression: 1. Rest and stress SPECT Cardiolite nuclear imaging demonstrate relative uniform tracer uptake and myocardial perfusion appearing within normal limits. 2. The gated Cardiolite study reports an LVEF of 73 %. This note was generated with [employer] software. It may contain incorrect words, spelling, and punctuation that were not noted in checking the note before signing.
--- NOTE | 2020-01-25 10:24 | NURSING ---
Patient took home dose of Otezla per [place] from Dr. Chavis.
--- NOTE | 2020-01-25 11:16 | DCINST_ITS ---
- Discharge Diagnoses Current Active Problems: Current Active and Chronic Problems (Last Reviewed 07/01/19 @ 14:57 by Ratna Philip) Acute epigastric pain (Acute) History of coronary artery disease (Chronic) Abnormal EKG (Acute) Chest pain (Acute) Essential hypertension (Chronic) You will use the following diet at home:: Cardiac Your food should be the consistency of: Regular Your liquids should be the consistency of: Regular/Thin Discharge Activity: Return to Normal Activity Allergies/Adverse Reactions: Allergies ciprofloxacin [From Cipro] Allergy (Verified 01/24/20 13:35) Rash ciprofloxacin HCl [From Cipro] Allergy (Verified 01/24/20 13:35) Rash naproxen [From Naprosyn] Allergy (Verified 01/24/20 13:35) Hives amoxicillin [From Augmentin] Adverse Reaction (Severe, Verified 01/24/20 13:35) Hives clavulanic acid [From Augmentin] Adverse Reaction (Severe, Verified 01/24/20 13:35) Hives codeine Adverse Reaction (Intermediate, Verified 01/24/20 13:35) Nausea isosorbide Adverse Reaction (Intermediate, Verified 01/24/20 13:35) headache, cannot focus CIPRO Allergy (Uncoded 08/05/19 13:28) Rash Medications to take at Discharge Amlodipine Besylate [Norvasc] 2.5 mg PO DAILY 01/24/20 Apremilast [Otezla] 30 mg PO BID 01/24/20 Aspirin [Aspirin, Baby] 81 mg PO DAILY@0800 01/24/20 Atorvastatin Calcium [Lipitor] 80 mg PO QHS 01/24/20 Cetirizine HCl [All Day Allergy] 10 mg PO DAILY 01/24/20 Clopidogrel Bisulfate [Clopidogrel] 75 mg PO DAILY 01/24/20 Duloxetine HCl 30 mg PO DAILY 01/24/20 Duloxetine HCl 60 mg PO DAILY 01/24/20 Lisinopril 20 mg PO DAILY 01/24/20 Nebivolol HCl [Bystolic] 2.5 mg PO DAILY 01/24/20 Primary Care Physician: Abundio Kilgore DO [Primary Care Provider] - Please follow up with your Primary Care Physician in: 1-2 weeks Test Results: Test results from this visit will be discussed in further detail at your follow- up appointment, if applicable. Proposed Discharge Date: 01/25/20
--- NOTE | 2020-01-25 14:31 | DS.PCM_ITS ---
<Josue Lennon - Last Filed: 01/25/20 14:31> Discharge Date and Diagnosis Date of Admission: 01/24/20 Date of Discharge: 01/25/20 - Primary Discharge Diagnosis Acute Problems: Chest pain - 2/2 gastric bloating Chronic diarrhea Hx CAD with prior stents HTN HLD - Secondary Discharge Diagnosis Chronic Problems: Chronic Problems (Last Reviewed 07/01/19 @ 14:57 by Ratna Philip) History of coronary artery disease (Chronic) Mixed hyperlipidemia (Chronic) Presence of stent in coronary artery (Chronic 05/29/19) PTCA/stent of the prox RCA and posterolateral branch of the RCA 09/15/03; PTCA/ISRRAEL to the prox PL branch of the RCA 11/06/18; Single vessel CAD of the mid LCX Non obstructive coronary arteries Successful PTCA/ISRRAEL of mid LCX with a 2.5 x 28 Promus Synergy, post dilated with a 3.0 x 12 NC balloon at 16 jaskaran; 75%-->0%, no dissection. Pt had identical CP during stent deployment. 05/29/2019 Essential hypertension (Chronic) Obesity (BMI 30.0-34.9) (Chronic) History of percutaneous transluminal coronary angioplasty (Chronic ~09/15/03) PTCA/stent of the prox RCA and posterolateral branch of the RCA 09/15/03 Atherosclerotic heart disease of [place] coronary artery without angina pectoris (Chronic) intermediate use of drug (Chronic) Hospital Course and Treatment Imaging Results: 01/25/20 05:55 Nuclear Stress Test - Treadmil [NM] Routine Interpretation: Rest and stress SPECT Cardiolite nuclear imaging status post realignment, normalization, and attenuation correction, demonstrates the appearance of relative uniform tracer uptake and myocardial perfusion appearing within normal limits. There is end systolic thickening and brightening. The gated Cardiolite study demonstrates myocardial thickening and inward wall motion. The reported LVEF is 73 %. Impression: 1. Rest and stress SPECT Cardiolite nuclear imaging demonstrate relative uniform tracer uptake and myocardial perfusion appearing within normal limits. 2. The gated Cardiolite study reports an LVEF of 73 %. CT/Abdomen/Pelvis W IV Cont ONLY IMPRESSION: No suspicious solid organ abnormality, simple right hepatic cyst, no specific follow-up is needed No CT evidence of acute inflammatory process, normal appendix visualized Focal small bowel ileus in the right lower quadrant No free intraperitoneal fluid, air, or suspicious adenopathy RAD/Chest PA and Lateral IMPRESSION: Normal x-ray examination of the chest. Operations: None Procedures: Stress test Summary of Care Provided: Hospital Course: The patient is a 55 year old M past medical history as above for prior stents, who presented to the emergency room with complaints of pain over his xiphoid and epigastric area. He was out splitting wood when the symptoms came on and were relieved at rest. They would resume when he resumed splitting wood. His PCP advised him to come to the ER. In the ER he had negative troponin, negative CXR, negative EKG. CT abdomen showed possible ileus, however he was having regular bowel movements, eating and drinking well, and He was admitted for chest pain workup. No events on tele. Trop neg x 3. The following day stress test was negative. He was discharged home in stable condition. He will need follow up with his PCP in 1-2 weeks. This patient was seen by Josue Lennon PA-C under the supervision of Dr. Chavis.[] - Physical Exam Vitals/I&O's: Vital Signs Temp Pulse Resp BP Pulse Ox 98.2 F 80 17 135/92 H 96 01/25/20 11:37 01/25/20 11:37 01/25/20 11:37 01/25/20 11:37 01/25/20 11:37 Oxygen Flow Rate (L/min) 2 Oxygen Delivery Method Room Air Weight: 216 lb 11.43 oz Body Mass Index (BMI) 30.2 Intake and Output for Last 24 Hours 01/23/20 01/24/20 01/25/20 23:59 23:59 23:59 Intake Total 720 / 720 0 / 0 Output Total 900 / 900 900 / 900 Balance -180 / -180 -900 / -900 General: Alert, Oriented x3, Cooperative HEENT: Atraumatic, PERRLA, EOMI, Normocephalic Neck: Supple, No JVD, Negative Carotid Bruits Lungs: Clear to auscultation, Normal air movement Cardiovascular: Regular rate, No murmurs Abdomen: Bowel Sounds Present, Soft, Non Tender Extremities: No edema, Capillary Refill Less than 3 Seconds Skin: No rashes, No breakdown Musculoskeletal: No Tenderness to Palpation of Joints or Extremities Neurological: Cranial nerves II-XII grossly intact Psych/Mental Status: Normal Affect, Appropriate, Alert and oriented to time, place, person, mood and affect Laboratory Results 01/24/20 14:00: Sodium 139, Potassium 3.8, Chloride 105, Carbon Dioxide 27.0, Anion Gap 7, BUN 13, Creatinine 0.95, Estim Creat Clear Calc 91.37, Est GFR (MDRD) Af Amer 105, Est GFR (MDRD) Non-Af 87, BUN/Creatinine Ratio 13.7, Glucose 83, Calcium 9.1, Total Bilirubin 1.10 H, Direct Bilirubin 0.27, AST 39 H, ALT 94 H, Alkaline Phosphatase 87, Troponin I < 0.015, Total Protein 7.2, Albumin 4.1, Globulin 3.1, Lipase 199 01/24/20 14:00: Lactic Acid 1.5 01/24/20 14:00: B-Natriuretic Peptide 15.9 01/24/20 18:05: Troponin I < 0.015 01/24/20 20:35: Troponin I < 0.015 01/24/20 21:03: POC Glucose 117 H 01/25/20 05:45: WBC 5.9, RBC 5.32, Hgb 16.6 H, Hct 48.7, MCV 91.5, MCH 31.2, MCHC 34.1, RDW Std Deviation 39.1, RDW Coeff of Celeste 11.9, Plt Count 181, MPV 9.6, Immature Gran % (Auto) 0.200, Neut % (Auto) 50.7, Lymph % (Auto) 34.9, [place] % (Auto) 11.0 H, Eos % (Auto) 2.9, Baso % (Auto) 0.3, Absolute Neuts (auto) 3.0, Absolute Lymphs (auto) 2.07, Nucleated RBC % 0 01/25/20 05:45: Sodium 139, Potassium 3.6, Chloride 104, Carbon Dioxide 28.0, Anion Gap 7, BUN 12, Creatinine 0.87, Estim Creat Clear Calc 99.77, Est GFR (MDRD) Af Amer 116, Est GFR (MDRD) Non-Af 96, BUN/Creatinine Ratio 13.8, Glucose 93, Calcium 8.5 Discharge Diet: Low fat/ Low Cholesterol, 2000 mg Sodium Diet Discharge Activity: Return to Normal Activity Home Medications: Medications to take at Discharge Amlodipine Besylate [Norvasc] 2.5 mg PO DAILY 01/24/20 Apremilast [Otezla] 30 mg PO BID 01/24/20 Aspirin [Aspirin, Baby] 81 mg PO DAILY@0800 01/24/20 Atorvastatin Calcium [Lipitor] 80 mg PO QHS 01/24/20 Cetirizine HCl [All Day Allergy] 10 mg PO DAILY 01/24/20 Clopidogrel Bisulfate [Clopidogrel] 75 mg PO DAILY 01/24/20 Duloxetine HCl 30 mg PO DAILY 01/24/20 Duloxetine HCl 60 mg PO DAILY 01/24/20 Lisinopril 20 mg PO DAILY 01/24/20 Nebivolol HCl [Bystolic] 2.5 mg PO DAILY 01/24/20 Primary Care Physician: Abundio Kilgore DO [Primary Care Provider] - Please follow up with your Primary Care Physician in: 1-2 weeks Please Follow Up With: Abundio Kilgore DO Disposition: Home Minutes spent on discharge:: 35 Patient Condition:: Stable Medical Necessity - Tobacco Use Smoking Status: Former smoker Tobacco Use: Non-smoker Meaningful Use Info Meaningful Use Diagnoses (Choose all that apply): None applicable <Humberto Chavis - Last Filed: 01/25/20 16:57> Discharge Date and Diagnosis - Secondary Discharge Diagnosis Chronic Problems: Chronic Problems (Last Reviewed 07/01/19 @ 14:57 by Ratna Philip) History of coronary artery disease (Chronic) Mixed hyperlipidemia (Chronic) Presence of stent in coronary artery (Chronic 05/29/19) PTCA/stent of the prox RCA and posterolateral branch of the RCA 09/15/03; PTCA/ISRRAEL to the prox PL branch of the RCA 11/06/18; Single vessel CAD of the mid LCX Non obstructive coronary arteries Successful PTCA/ISRRAEL of mid LCX with a 2.5 x 28 Promus Synergy, post dilated with a 3.0 x 12 NC balloon at 16 jaskaran; 75%-->0%, no dissection. Pt had identical CP during stent deployment. 05/29/2019 Essential hypertension (Chronic) Obesity (BMI 30.0-34.9) (Chronic) History of percutaneous transluminal coronary angioplasty (Chronic ~09/15/03) PTCA/stent of the prox RCA and posterolateral branch of the RCA 09/15/03 Atherosclerotic heart disease of [place] coronary artery without angina pectoris (Chronic) intermediate use of drug (Chronic) Hospital Course and Treatment Summary of Care Provided: T this patient was seen in conjunction with Josue WILSON. I have independently interviewed and examined the patient and reviewed pertinent history, examination findings, laboratory and plan of management. I have reviewed the note and agree with the documented findings with the few additional points. In brief, patient is admitted for chest pain along with upper abdominal pain. Serial troponin enzymes are negative. EKG normal sinus rhythm. CT abdomen s hows focal small bowel ileus in the right lower quadrant. Patient has symptoms of bloating symptoms mild diarrhea and eats mainly passed out. Patient was advised to change his appetite for complex carbohydrate with fiber. Patient had treadmill nuclear stress test which was negative for stress-induced ischemia. Discharge medication reconciliation done. Discharge follow-up instructions completed. Discharge process discussed with the patient and his near the bedside and all questions were answered to patient's satisfaction. Total time spent, exact 35 minutes on discharge meds reconciliation, examination, coordination of care with nurses and ancillary staff, review of imaging and blood test and discussion with the patient on follow-up instructions I have discussed my assessment with Josue WILSON and orders have been reviewed. [] Objective: Seen and examined. Denies chest pain, shortness of breath. Patient completed treadmill nuclear stress test without shortness of breath, chest pain or near syncope symptoms Patient also had upper abdominal pain/heaviness that is resolved. Patient is only have semisolid stool but no watery stool or constipation. CT finding of focal small bowel ileus in the right lower quadrant. - Physical Exam Vitals/I&O's: Vital Signs Temp Pulse Resp BP Pulse Ox 98.2 F 80 17 135/92 H 96 01/25/20 11:37 01/25/20 11:37 01/25/20 11:37 01/25/20 11:37 01/25/20 11:37 Oxygen Flow Rate (L/min) 2 Oxygen Delivery Method Room Air Weight: 216 lb 11.43 oz Body Mass Index (BMI) 30.2 Intake and Output for Last 24 Hours 01/23/20 01/24/20 01/25/20 23:59 23:59 23:59 Intake Total 720 / 720 0 / 0 Output Total 900 / 900 900 / 900 Balance -180 / -180 -900 / -900 General: Alert, Oriented x3, Cooperative HEENT: Atraumatic, PERRLA, EOMI, Normocephalic Neck: Supple, No JVD, Negative Carotid Bruits Lungs: Clear to auscultation, Normal air movement, No rhonchi, No wheeze, No rales Cardiovascular: Regular rate, Regular Rhythm, Normal S1, Normal S2, No murmurs Abdomen: Bowel Sounds Present, Soft, Non Tender, Non-Distended Extremities: No edema, Capillary Refill Less than 3 Seconds Skin: No rashes, No breakdown Musculoskeletal: No Tenderness to Palpation of Joints or Extremities Neurological: Cranial nerves II-XII grossly intact, Deep Tendon Reflexes 2+/4 and Symmetrical, Neuro grossly intact, Motor Exam 5/5 strength throughout Psych/Mental Status: Normal Affect, Appropriate Laboratory Results 01/24/20 18:05: Troponin I < 0.015 01/24/20 20:35: Troponin I < 0.015 01/24/20 21:03: POC Glucose 117 H 01/25/20 05:45: WBC 5.9, RBC 5.32, Hgb 16.6 H, Hct 48.7, MCV 91.5, MCH 31.2, MCHC 34.1, RDW Std Deviation 39.1, RDW Coeff of Celeste 11.9, Plt Count 181, MPV 9.6, Immature Gran % (Auto) 0.200, Neut % (Auto) 50.7, Lymph % (Auto) 34.9, [place] % (Auto) 11.0 H, Eos % (Auto) 2.9, Baso % (Auto) 0.3, Absolute Neuts (auto) 3.0, Absolute Lymphs (auto) 2.07, Nucleated RBC % 0 01/25/20 05:45: Sodium 139, Potassium 3.6, Chloride 104, Carbon Dioxide 28.0, Anion Gap 7, BUN 12, Creatinine 0.87, Estim Creat Clear Calc 99.77, Est GFR (MDRD) Af Amer 116, Est GFR (MDRD) Non-Af 96, BUN/Creatinine Ratio 13.8, Glucose 93, Calcium 8.5 OBSV E&M: [id number] Observation care discharge
== END 2020-01-25 11:16 | disposition home or self-care (01) ==
LOC: ED 14:04 → PCU 17:28
PROVIDERS: Admitting Provider Internal Medicine; Emergency Provider Emergency Medicine; PCP Family Medicine; Visit Provider Internal Medicine
DX: R14.0 Abdominal distension (gaseous) (principal); R06.02 Shortness of breath; I25.10 Atherosclerotic heart disease of native coronary artery without angina pectoris; I10 Essential (primary) hypertension; E78.2 Mixed hyperlipidemia; E66.9 Obesity, unspecified; Z68.30 Body mass index [BMI] 30.0-30.9, adult; L40.50 Arthropathic psoriasis, unspecified; Z95.5 Presence of coronary angioplasty implant and graft; Z79.899 Other long term (current) drug therapy; Z79.82 Long term (current) use of aspirin; Z87.891 Personal history of nicotine dependence; K52.9 Noninfective gastroenteritis and colitis, unspecified
CPT/HCPCS: 36415; 71046; 74177; 78452; 80048; 80076; 81001; 82962; 83605; 83690; 83880; 84484; 85025; 85610; 93005; 93017; 99218; 99251; 99285; A9500; A4216; G0378; G0463

== ENCOUNTER → 2020-04-01 17:41 | Outpatient (CLI) | payer OTHER, SELFPAY ==
[2018-11-07 07:32] VITALS: BMI 31.7
[2020-01-24 17:52] VITALS: BMI 30.2
== END ==
PROVIDERS: PCP Family Medicine; Referring Provider Internal Medicine Gastroenterology; Visit Provider Internal Medicine Gastroenterology
DX: Z11.59 Encounter for screening for other viral diseases (principal)
CPT/HCPCS: 87635; C9803; U0003

== ENCOUNTER → 2020-07-22 13:56 | Outpatient (CLI) | payer OTHER, SELFPAY ==
[2018-11-07 07:32] VITALS: BMI 31.7
[2020-01-24 17:52] VITALS: BMI 30.2
[2020-07-22 14:43] VITALS: BP 130/82; PULSE 76; RESP 16; TEMP 36.2; O2SAT 95; BMI 30.2
[2020-07-22 14:45] VITALS: BP 130/82; PULSE 76; RESP 16; TEMP 36.2; O2SAT 95
== END ==
PROVIDERS: PCP Family Medicine; Referring Provider Specialist; Visit Provider Specialist
DX: E83.119 Hemochromatosis, unspecified (principal)
CPT/HCPCS: 99195; A4216

== ENCOUNTER → 2020-07-29 14:47 | Outpatient (CLI) | payer OTHER, SELFPAY ==
[2018-11-07 07:32] VITALS: BMI 31.7
[2020-01-24 17:52] VITALS: BMI 30.2
[2020-07-22 14:43] VITALS: BMI 30.2
[2020-07-29 14:55] VITALS: BP 142/83; PULSE 68; RESP 16; TEMP 36.3; O2SAT 97; BMI 30.1
[2020-07-29 15:27] VITALS: BP 127/82; PULSE 63; RESP 16; TEMP 36.8; O2SAT 95
== END ==
PROVIDERS: PCP Family Medicine; Referring Provider Specialist; Visit Provider Specialist
DX: E83.119 Hemochromatosis, unspecified (principal)
CPT/HCPCS: 99195

== ENCOUNTER → 2020-09-25 09:31 | Outpatient (CLI) | payer OTHER, SELFPAY ==
[2018-11-07 07:32] VITALS: BMI 31.7
[2020-08-31 13:27] VITALS: BMI 29.6
[2020-09-25 13:06] LABS: AST(SGOT) 26 U/L (15-37); Alanine Aminotransfer ALT/SGPT 60 U/L (16-61); Albumin, Serum 4.3 g/dL (3.2-5.0); Alkaline Phosphatase 79 U/L (45-117); Bilirubin, Direct 0.18 mg/dL (0.00-0.30); Cholesterol 168 mg/dL (200); High Density Lipoprotein 44 mg/dL; Protein, Total 7.3 g/dL (6.4-8.2); Triglycerides 136 mg/dL; Very Low Density Lipoprotein 27 mg/dL (5-40)
== END ==
PROVIDERS: Internal Medicine Cardiovascular Disease; PCP Family Medicine; Referring Provider Internal Medicine Cardiovascular Disease; Visit Provider Internal Medicine Cardiovascular Disease
DX: E78.2 Mixed hyperlipidemia (principal); E78.00 Pure hypercholesterolemia, unspecified
CPT/HCPCS: 36415; 80061; 80076

== ENCOUNTER → 2020-10-22 09:41 | Outpatient (CLI) | payer OTHER, SELFPAY ==
[2018-11-07 07:32] VITALS: BMI 31.7
[2020-08-31 13:27] VITALS: BMI 29.6
--- NOTE | 2020-10-22 09:46 | RAD_ITS ---
INDICATION: hx of hemochromatosis, having increased joint pain recently EXAMINATION/TECHNIQUE: X-RAY - LEFT XR Knee Complete 4 Views or More COMPARISON: None. FINDINGS: No acute fracture or malalignment. There are changes from previous ACL graft repair. There is mild degenerative arthrosis of the medial femorotibial compartment. No joint effusion. The soft tissues are unremarkable. RAD/Knee 4 or More Views IMPRESSION: No acute radiographic abnormalities. Mild medial compartment degenerative arthrosis of the. Electronically Signed: Raúl Morgan MD at 19:13 EDT Tel , Service support ,
--- NOTE | 2020-10-22 09:46 | RAD_ITS ---
INDICATION: hx of hemochromatosis, having increased joint pain recently EXAMINATION/TECHNIQUE: X-RAY - LEFT XR Foot Min 3 Views COMPARISON: None. FINDINGS: No acute fracture or malalignment. No blastic or lytic lesions. No degenerative changes are seen. The soft tissues are unremarkable. RAD/Foot min 3 Views IMPRESSION: No acute radiographic abnormalities. Electronically Signed: Raúl Morgan MD at 19:18 EDT Tel , Service support ,
--- NOTE | 2020-10-22 09:46 | RAD_ITS ---
INDICATION: hx of hemochromatosis, having increased joint pain recently EXAMINATION/TECHNIQUE: X-RAY - XR Hips Bilateral with Pelvis when performed; 2 Views COMPARISON: None. FINDINGS: PELVIC BONES: No displaced fracture, destructive or sclerotic lesions. Note that overlapping bowel shadows may however obscure fine detail. Sacroiliac joints are unremarkable. No widening of the pubic symphysis. HIPS: Mild asymmetric joint space narrowing of the bilateral hips. No displaced fracture seen in this frontal view. SOFT TISSUES: No soft tissue swelling or gas. RAD/Hips B/L min 2 views w/ Pelvis IMPRESSION: No acute abnormalities. Mild degenerative arthrosis at the bilateral hips. Electronically Signed: Raúl Morgan MD at 19:15 EDT Tel , Service support ,
--- NOTE | 2020-10-22 09:47 | RAD_ITS ---
INDICATION: hx of hemochromatosis, having increased joint pain recently EXAMINATION/TECHNIQUE: X-RAY - RIGHT XR Foot Min 3 Views COMPARISON: None. FINDINGS: No acute fracture or malalignment. No blastic or lytic lesions. No degenerative changes are seen. The soft tissues are unremarkable. RAD/Foot min 3 Views IMPRESSION: No acute radiographic abnormalities. Electronically Signed: Raúl Morgan MD at 19:18 EDT Tel , Service support ,
--- NOTE | 2020-10-22 09:47 | RAD_ITS ---
INDICATION: hx of hemochromatosis, having increased joint pain recently EXAMINATION/TECHNIQUE: X-RAY - RIGHT XR Knee Complete 4 Views or More COMPARISON: 01/26/2018. FINDINGS: No acute fracture or malalignment. There are changes from previous ACL graft repair. Minimal degenerative changes of the medial and patellofemoral compartments. No joint effusion. The soft tissues are unremarkable. RAD/Knee 4 or More Views IMPRESSION: No acute radiographic abnormalities. Minimal degenerative changes of the medial and patellofemoral compartments of the knee. Electronically Signed: Raúl Morgan MD at 19:17 EDT Tel , Service support ,
== END ==
PROVIDERS: PCP Family Medicine; Referring Provider Family Medicine; Visit Provider Family Medicine
DX: M25.551 Pain in right hip (principal); M25.552 Pain in left hip; M25.561 Pain in right knee; M25.562 Pain in left knee; M79.671 Pain in right foot; M79.672 Pain in left foot
CPT/HCPCS: 73521; 73564; 73630

== ENCOUNTER → 2020-12-29 12:35 | Outpatient (CLI) | payer OTHER, SELFPAY ==
[2018-11-07 07:32] VITALS: BMI 31.7
[2020-08-31 13:27] VITALS: BMI 29.6
--- NOTE | 2020-12-29 12:38 | MRI_ITS ---
STUDY: MRI CERVICAL SPINE WITHOUT CONTRAST REASON FOR EXAM: Male, 55 years old. LT SIDED RADICULOPATHY, neck pain TECHNIQUE: Standardized fat and water weighted pulse sequences were obtained in the sagittal and axial planes. COMPARISON: None FINDINGS: Normal foramen magnum and brainstem-cervical cord junction. Normal craniovertebral junction. Normal anterior atlantoaxial articulation. Normal odontoid process. Normal cervical lordosis. Normal vertebral bodies and posterior osseous elements. C2-3: Normal endplates. Normal disc height, signal and morphology. Normal central canal and intervertebral neural foramina. C3-4: Normal endplates. Normal disc height, signal and morphology. Normal central canal and intervertebral neural foramina. C4-5: Moderate broad disc osteophyte complex asymmetric to left produces moderate spinal stenosis with abutment the left hemicord and mild left neural foraminal stenosis. C5-6: Normal endplates. Normal disc height, signal and morphology. Normal central canal and intervertebral neural foramina. C6-7: Mild broad disc osteophyte complex asymmetric to the right produces mild spinal stenosis and mild right neural foraminal stenosis. C7-T1: Normal endplates. Normal disc height, signal and morphology. Normal central canal and intervertebral neural foramina. Normal cervical cord. Normal visualized soft tissue structures. MRI/Spine Cervical (Routine) IMPRESSION: Multilevel degenerative changes, as described above. Electronically Signed: Chidi Mauro MD at 14:28 EDT Tel , Service support ,
--- NOTE | 2020-12-29 12:38 | MRI_ITS ---
STUDY: MRI LUMBAR SPINE WITHOUT CONTRAST REASON FOR EXAM: Male, 55 years old. LOW BACK PAIN, LE NUMBNESS, BILAT HIP PAIN TECHNIQUE: Standardized fat and water weighted pulse sequences were obtained in the sagittal and axial planes. COMPARISON: None FINDINGS: T12-L1: Normal endplates. Normal disc height, hydration and morphology. Normal bilateral facet joints. Normal central canal and bilateral lateral recesses. Normal bilateral intervertebral neural foramina. Normal lumbar lordosis. There is no substantial scoliosis. Normal conus medullaris that terminates at the T12/L1. L1-2: Normal endplates. Normal disc height, hydration and morphology. Normal bilateral facet joints. Normal central canal and bilateral lateral recesses. Normal bilateral intervertebral neural foramina. L2-3: Normal endplates. Normal disc height, hydration and morphology. Normal bilateral facet joints. Normal central canal and bilateral lateral recesses. Normal bilateral intervertebral neural foramina. L3-4: Normal endplates. Normal disc height, hydration and morphology. Normal bilateral facet joints. Normal central canal and bilateral lateral recesses. Normal bilateral intervertebral neural foramina. L4-5: Mild bilateral facet hypertrophy and ligament flavum hypertrophy. Mild broad disc protrusion produces mild spinal stenosis and mild bilateral neural foraminal stenosis. L5-S1: Mild broad disc protrusion produces mild spinal stenosis and the moderate bilateral neural foraminal stenosis with abutment of the exiting L5 nerve roots bilaterally. Normal visualized sacral ala. Normal visualized paraspinous soft tissue structures. MRI/Spine Lumbar (Routine) IMPRESSION: Mild degenerative disc disease lower lumbar spine as described above. Electronically Signed: Chidi Mauro MD at 16:37 EDT Tel , Service support ,
== END ==
PROVIDERS: PCP Family Medicine; Referring Provider Family Medicine; Visit Provider Family Medicine
DX: M54.12 Radiculopathy, cervical region (principal); M48.061 Spinal stenosis, lumbar region without neurogenic claudication
CPT/HCPCS: 72141; 72148

== ENCOUNTER → 2021-01-22 12:29 | Outpatient (CLI) | payer OTHER, SELFPAY ==
[2018-11-07 07:32] VITALS: BMI 31.7
[2021-01-08 10:11] VITALS: BMI 28.7
--- NOTE | 2021-01-22 12:30 | MRI_ITS ---
STUDY: MRI LEFT HIP REASON FOR EXAM: Male, 56 years old. LEFT hip pain, rule out AVN TECHNIQUE: Standardized fat and water weighted pulse sequences were obtained in all 3 orthogonal planes. COMPARISON: X-ray 01/08/2021 FINDINGS: There is severe loss of the articular joint space of the hip joint, with full thickness loss of the hyaline cartilage. There is lateral osteoarthritic spurring of the acetabular rim. Normal labrum. There is circumferential osteoarthritic spurring of the femoral head. Decreased femoral head neck offset with a femoral dysplastic but predisposing to cam-type femoral acetabular impingement. Normal gluteus minimus, medius and iliopsoas tendons and distal insertions. There is no trochanteric, iliopsoas or iliopectineal bursitis. Normal superior and inferior pubic rami. Normal pubic symphysis. Normal ischial tuberosity. Normal origin of the hamstring tendons. Normal visualized iliac wing, sacroiliac joint, and sacral ala. Normal visualized soft tissue structures of the pelvis. 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 Electronically Signed: Chidi Mauro MD at 18:56 EDT Tel , Service support ,
--- NOTE | 2021-01-22 12:30 | MRI_ITS ---
STUDY: MRI RIGHT HIP REASON FOR EXAM: Male, 56 years old. RIGHT hip pain, rule out AVN TECHNIQUE: Standardized fat and water weighted pulse sequences were obtained in all 3 orthogonal planes. COMPARISON: X-ray 01/08/2021 FINDINGS: There is moderate articular narrowing of the hip joint, with greater than 50% loss of the hyaline cartilage. There is lateral osteoarthritic spurring of the acetabular rim. Normal labrum. There is circumferential osteoarthritic spurring of the femoral head. Decreased femoral head neck offset with a femoral dysplastic bump predisposing to cam-type femoral acetabular impingement. Normal gluteus minimus, medius and iliopsoas tendons and distal insertions. There is no trochanteric, iliopsoas or iliopectineal bursitis. Normal superior and inferior pubic rami. Normal pubic symphysis. Normal ischial tuberosity. Normal origin of the hamstring tendons. Normal visualized iliac wing, sacroiliac joint, and sacral ala. Normal visualized soft tissue structures of the pelvis. 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
== END ==
PROVIDERS: PCP Family Medicine; Referring Provider Orthopaedic Surgery; Visit Provider Orthopaedic Surgery
DX: M16.0 Bilateral primary osteoarthritis of hip (principal)
CPT/HCPCS: 73721

== ENCOUNTER → 2021-02-23 14:46 | Outpatient (CLI) | payer OTHER, SELFPAY ==
[2018-11-07 07:32] VITALS: BMI 31.7
[2021-01-27 09:06] VITALS: BMI 28.7
--- NOTE | 2021-02-23 14:47 | CT_ITS ---
STUDY: CT SCAN LEFT LOWER EXTREMITY. [facility] protocol. REASON FOR EXAM: Male, 56 years old. Templating for left TANNER RADIATION DOSAGE (If Supplied By Facility): CTDIvol = ( 13 ) mGy, DLP = (804.55 ) mGycm. Individualized dose optimization techniques were used for this CT.? TECHNIQUE: Multiple axial tomographic images of the left lower extremity were obtained without intravenous contrast administration. Coronal and sagittal reconstruction was obtained as well. COMPARISON: None. FINDINGS: Imaging of both hip joints was obtained. There is a marked degree of osteoarthritis of the left hip joint with the marginal osteophytes of the femoral head as well as the acetabulum. Imaging of the knee joint was obtained. There is evidence of prior anterior cruciate ligament repair. CT/Extremity Lower without Contra IMPRESSION: Moderate degree of osteoarthritis involving the left hip joint with marginal osteophytes of the femoral head as well as the acetabulum. Electronically Signed: Jairo Alvarez MD at 21:49 EDT , Service support ,
== END ==
PROVIDERS: PCP Family Medicine; Referring Provider Orthopaedic Surgery; Visit Provider Orthopaedic Surgery
DX: M16.12 Unilateral primary osteoarthritis, left hip (principal)
CPT/HCPCS: 73700

== ENCOUNTER 2021-03-02 05:31 | Day surgery (SDC) | payer OTHER, SELFPAY ==
[2018-11-07 07:32] VITALS: BMI 31.7
[2021-01-27 09:06] VITALS: BMI 28.7
--- NOTE | 2021-02-22 09:00 | EKG12_ITS ---
Test Reason : PRE-OP Blood Pressure : / mmHG Vent. Rate : 068 BPM Atrial Rate : 068 BPM P-R Int : 184 ms QRS Dur : 088 ms QT Int : 398 ms P-R-T Axes : 021 026 000 degrees QTc Int : 423 ms Normal sinus rhythm Nonspecific T wave abnormality Confirmed by TAYLOR ANTONIO, MARTHA ([id number]), editor department STEPHANY MARIE ([id number]) on 02/23/2021 10:34:45 AM Referred By: Teddy Adrian Confirmed By:MARTHA VAZQUEZ MD
[2021-02-22 10:24] LABS: Absolute Lymphocyte Count 2.03 X10^3/uL (0.83-4.51); Absolute Neutrophil Count 3.4 X10^3/uL (2.0-7.7); Basophil# 0.03 X10^3/uL; Basophil% 0.5 % (0-1); Eosinophils% 1.6 % (0-5); Hematocrit 50.5 % (40-54); Lymphocyte # 2.03 X10^3/ul (0.83-4.51); Mean Corp Hgb Conc 33.7 g/dL (32-36); Mean Corpuscular Hgb 30.5 pg (27.0-32.0); Mean Corpuscular Volume 90.7 fL (80-94); Mean Platelet Vol. 9.8 fl (6.2-12.0); Monocyte# 0.59 X10^3/uL; Monocyte% 9.6 % (0-10); NRBC Flagged by Analyzer 0 % (0-5); Neutrophil # 3.39 X10^3/uL (2.7-7.7); Platelet Count 181 K/mm3 (150-450); RBC Distribution Width CV 11.7 % (11.6-14.6); RBC Distribution Width SD 38.6 fl (35.1-43.9); Red Blood Count 5.57 M/mm3 (4.6-6.2); White Blood Count 6.2 K/mm3 (4.4-11.0)
[2021-02-22 10:37] LABS: Partial Thromboplast Time 24.5 Seconds (24.1-36.2)
[2021-02-22 11:06] LABS: AST(SGOT) 27 U/L (15-37); Alanine Aminotransfer ALT/SGPT 49 U/L (16-61); Alkaline Phosphatase 65 U/L (45-117); Anion Gap 5 (5-15); BUN 11 mg/dL (7-18); Bilirubin, Direct 0.12 mg/dL (0.00-0.30); Calcium,Total 8.8 mg/dL (8.5-10.1); Chloride 105 mmol/L (98-107); Creatinine, Serum 0.79 mg/dL (0.70-1.30); EST Glomerular Filtration Rate 107 mL/min (>60); Est Glom Filt Rate - Afr Amer 130 mL/min (>60); Globulin 2.9 g/dL (2.2-4.2); Glucose 107 mg/dL (74-106); Magnesium 2.1 mg/dL (1.6-2.6); Potassium 3.9 mmol/L (3.5-5.1); Protein, Total 6.9 g/dL (6.4-8.2); Sodium Level 138 mmol/L (136-145)
[2021-02-23 16:50] LABS: Fructosamine 217 umol/L (0-285)
[2021-03-02] VITALS (10 sets, daily range): BP systolic 119–144; BP diastolic 67–88; PULSE 50–77; RESP 16; TEMP 36.1–37; O2SAT 93–100; BMI 29.6
[2021-03-02] MEDS: Acetaminophen 500 MG Tablet 1000 MG PO ×2 (06:36→14:00)
[2021-03-02] MEDS: Scopolamine 1mg/72hr Patch 1 PATCH TD (06:36)
[2021-03-02] MEDS: Gabapentin 600 MG Tablet PO (06:36)
[2021-03-02] MEDS: Celecoxib 200 MG Capsule 400 MG PO (06:36)
[2021-03-02] MEDS: Insulin Lispro 100 UNIT/ML INSULN.PEN SC (06:37)
[2021-03-02] MEDS: Lactated Ringers 1,000 ML 999 ML IV (06:37)
[2021-03-02] MEDS: Lactated Ringers 1,000 ML 100 ML IV (06:37)
--- NOTE | 2021-03-02 07:18 | HP.PCM_ITS ---
History and Physical Date of Admission: 03/02/21 Date of Service: 02/10/21 MR#:[id number]: STEFANIE CARLSON [facility] #:[id number] Provider:Dr. Teddy Adrian DOAge/Sex: 56/M [facility] [place]Signed Intake Intake Visit Reasons: Bilat hips Chief Complaint: Hip Pain Allergies ciprofloxacin [From Cipro] Allergy (Verified 01/08/21 10:21) Rash ciprofloxacin HCl [From Cipro] Allergy (Verified 01/08/21 10:21) Rash naproxen [From Naprosyn] Allergy (Verified 01/08/21 10:21) Hives amoxicillin [From Augmentin] Adverse Reaction (Severe, Verified 01/08/21 10:21) Hives clavulanic acid [From Augmentin] Adverse Reaction (Severe, Verified 01/08/21 10:21) Hives codeine Adverse Reaction (Intermediate, Verified 01/08/21 10:21) Nausea isosorbide Adverse Reaction (Intermediate, Verified 01/08/21 10:21) headache, cannot focus fluoroquinolon Allergy (Mild, Uncoded 01/08/21 10:22) Rash PFSH Medical History (Updated 01/27/21 @ 10:[address] Vahid Paula DO) Atherosclerotic heart disease of [place] coronary artery without angina pectoris CAD (coronary artery disease) Chest discomfort Chest pain Essential hypertension Mixed hyperlipidemia Obesity (BMI 30.0-34.9) Surgical History H/O reconstruction of anterior cruciate ligament tear History of bilateral inguinal hernia repair (~1976) History of percutaneous transluminal coronary angioplasty (~09/15/03) History of tonsillectomy and adenoidectomy (~1970) Presence of stent in coronary artery (05/29/19) Status post anal fissurectomy Family History Father CAD (coronary artery disease) Diabetes HLD (hyperlipidemia) Hypertension Mother Breast cancer Cancer liver cancer Sister Lichen sclerosus Social History (Updated 08/31/20 @ 14:[address] Emanuel Kelly MD) Smoking Status: Former smoker how long ago did patient quit smokin alcohol intake: current alcohol intake frequency: 0-2 drinks per day Alcohol type: beer, wine and hard liquor substance use type: does not use caffeine: Yes Type: coffee Number of servings: 1 what type of physical activity do you participate in: none seatbelt use: always do you feel safe at home: Yes HPI Bilat hips Details: Parts of this documentation were recorded by a scribe, this documentation accurately reflects the service provided and the decisions made by me, Dr. Teddy Adrian, DO 02/10/21 4810. STEFANIE CARLSON is a 56 year old M here today for bilateral hip pain, referred by Dr. Paual. The pain is mostly lateral, but it wraps around to the anterior thigh. Denies groin pain. His pain in the office today is a 6/10. The pain radiates all the way to his toes. His hips have been hurting for at least 6 months. The left bothers him more than the right. His left leg is shorter than his right leg. He has seen Dr. Balderas for shoe inserts. He states that he has been in the martial arts for many years, he has not had a specific injury but states he has had many traumas to his body, but none that required treatment. He denies surgeries to either hip. He has had 1 ACL repair on each knee. 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 He has tried heat and it only gives temporary relief. He has tried Tylenol and Aleve, with little relief. He has never had a steroid injection in his hip. He went to PT for his hips for 6-8 weeks a few years ago, which helped at the time. He was given a HEP, but he admits that he did not do them as regular as he should. He denies DM, but both parents had DM. Denies inflammatory conditions and chemotherapy. He takes baby aspirin for coronary artery disease. He has 4 stents in his heart. His last heart surgery was May 29, 2019. He consumes 2-3 beers, wine or mixed drinks per day. 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 He is scheduled to have an epidural steroid injection with Dr. Apple on 02/25/21 and wants to know if that would interfere with surgery for his hips. ROS Const Denies chills and Denies fever(s) ENT Reports neck pain Card Denies dyspnea Resp Denies dyspnea GI Denies nausea and Denies vomiting Musc Reports abnormal gait, Reports arthralgias, Reports back pain, Reports limited range of motion, Reports neck pain and Reports radiating pain into limb Skin/Breast Denies rash Neuro Yes abnormal gait Ortho Exam General General: Yes no acute distress Neurologic: Yes alert and Yes oriented x3 Psychologic: Yes reasonable and appropriate Right Hip Skin: No Ecchymosis, No soft tissue swelling and No Erythema Special Tests: Yes TTP Greater Troch, No TTP Greater sciatic notch and Yes Illiotibial band tenderness HIP: 5 degrees internal rotation with groin pain. 30 degrees external rotation with groin pain. TTP greater trochanteric bursa. IT band TTP. 5/5 strength. Able to plantarflex and dorsiflex. Neurovascularly intact. Distal pulses 2/4. No long tract signs. Left Hip Skin/Wound: No Ecchymosis, No soft tissue swelling and No Erythema Hip: Absent eccymosis, soft tissue swelling or erythema Special Tests: Yes TTP Greater Troch and Illiotibial band tenderness; No TTP Greater sciatic notch HIP: 8 degrees internal rotation and 35 degrees external rotation, both with groin pain. TTP greater trochanteric bursa. IT band TTP. 5/5 strength. Able to plantarflex and dorsiflex. Neurovascularly intact. Distal pulses 2/4. 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 01/22/2021 MRI right hip: Moderate arthrosis secondary to cam-type femoral acetabular impingement 01/08/2021 x-ray bilateral hips: Advanced DJD bilateral hips joint space narrowing and bone spur formation, left worse than right 12/29/2020 MRI lumbar spine: Mild degenerative disc disease and mild foraminal stenosis Personally reviewed the patient's medical history, recent imaging, medications, surgeries and recent exams if available. Educated him that he has advanced degenerative joint disease in bilateral hips and that radiographically his left is worse than his right. Options for treatment include PT, intraarticular hip injection, NSAIDS or hip replacement. Discussed that he is a candidate for hip replacement and that I recommend doing one hip at a time. He would like to proceed with surgery. Discussed after he has his left hip done, the right hip could be done 2 months after his left - if appropriate. Educated him that he will have to stop Plavix 7 days before surgery and would need clearance from the sectionizer, Dr. Kelly. He would not go back on Plavix until 3 weeks after surgery. For 6 weeks he will have hip restrictions and discussed what those are. He will be in PT after surgery and once before surgery. Risks, benefits and alternatives of surgery reviewed including but not limited to bleeding, infection, nerve, artery and/or tissue damage, fracture, VTE, leg length discrepancy, dislocation, need for hip precautions, continued pain and expected post-operative course. Discussed that he is okay to get his epidural steroid from Dr. Tenorio on 02/25/21. He would like to have his left total hip arthroplasty in February. Consent was signed today in the office. Follow up after surgery or sooner if pain, swelling, numbness or associated symptoms, or concerns develop. All questions answered. Patient in agreement of plan. Coding Level of Care Code Off vis,est,level 4 Diagnoses Bilateral primary osteoarthritis of hip M16.0 Assessment and Plan Assessment and Plan (1) Bilateral primary osteoarthritis of hip: Plan - Dr. Teddy Adrian, DO: Personally reviewed the patient's medical history, recent imaging, medications, surgeries and recent exams if available. Educated him that he has advanced degenerative joint disease in bilateral hips and that radiographically his left is worse than his right. Options for treatment include PT, intraarticular hip injection, NSAIDS or hip replacement. Discussed that he is a candidate for hip replacement and that I recommend doing one hip at a time. He would like to p roceed with surgery. Discussed after he has his left hip done, the right hip could be done 2 months after his left - if appropriate. Educated him that he will have to stop Plavix 7 days before surgery and 3 weeks after while on eliquis and would need clearance from the sectionizer, Dr. Kelly. He would not go back on Plavix until 3 weeks after surgery if ok with dr. salazar . For 6 weeks he will have strict hip precautions and discussed what those are. He will be in PT after surgery and once before surgery. Risks, benefits and alternatives of surgery reviewed including but not limited to bleeding, infection, nerve, artery and/or tissue damage, fracture, VTE, leg length discrepancy, dislocation, need for hip precautions, continued pain and expected post-operative course. Discussed that he is okay to get his epidural steroid from Dr. Tenorio on 02/25/21. He would like to have his left total hip arthroplasty in February. Consent was signed today in the office. Follow up as needed or sooner if pain, swelling, numbness or associated symptoms, or concerns develop. All questions answered. Patient in agreement of plan. 02/10/21 1428<Electronically signed by Teddy Adrian DO>Date Teddy Adrian DO 02/10/21 1437<Electronically signed by Paige WILSON>Cosigner Signature:Date (if applicable)Paige Teresa CC: ~I have examined the patient the following changes are noted:
[2021-03-02 07:20] LABS: Bedside Glucose 205 mg/dL (70-110)
--- NOTE | 2021-03-02 07:30 | FEM_PTH ---
PATIENT: STEFANIE CARLSON LOC: [facility] [place] U#:[id number] AGE/SX: 56/M ROOM: RE03/02/[address]: Dr. Teddy Adrian DO : 1965 BED: DIS: 03/02/2021 SPEC #: [id number] RECD: 03/02/21 10:50 STATUS: EMILIANO REBree #: [id number] MICHELE: 03/02/21 07:[address]: Teddy Adrian DEPT: SURGICAL PATHOLOGY RECD BY: Yolanda Young ENTERED: 03/02/21 11:23 SP TYPE: FEM HEAD OTHR DR: Dr. Abundio Kilgore DO Tissues: Femoral region, NOS Procedures: Decalcification bone/plaque Surgery Specimen Level IV HEADER OPERATION: ERAS, total hip replacement robotic arm assist PRE-OP DIAGNOSIS: Bilateral primary osteoarthritis of hip TISSUE SUBMITTED: Left hip bone and tissue MICROSCOPIC DIAGNOSIS Left hip bone and tissue, total hip replacement/resection: Femoral head with degenerative osteoarthritic changes. Fragments of fibroadipose tissue and cartilaginous tissue. SJ:ayesha 03/05/2021 MICROSCOPIC DESCRIPTION Slides are reviewed. GROSS DESCRIPTION Received is one container labeled with the patient's name and designated left hip bone and tissue. The specimen consists of a logan femoral head measuring 6 x 5.5 x 5 cm. The articular surface displays prominent osteophyte formation, eburnation and bone erosion. Also present in the specimen container are multiple irregular fragments of bone reamings and pink-yellow soft tissue measuring in aggregate 8.5 x 8 x 1.5 Digital Learning Platform[employer] Manager sections are submitted in two cassettes as follows: 1 - soft tissue and bone reamings, 2??bone after decalcification. / AM:ayesha 03/02/21 TC:5 [facility]: [id number]
[2021-03-02] MEDS: dexAMETHasone 10 MG/ML Vial IV (08:07)
[2021-03-02] MEDS: Lactated Ringers 1,000 ML 125 ML IV (09:31)
--- NOTE | 2021-03-02 10:08 | RAD_ITS ---
STUDY: X-RAY - PELVIS AND LEFT HIP REASON FOR EXAM: Postoperative evaluation of left hip arthroplasty. TECHNIQUE: 2 views of the pelvis and hip. COMPARISON: CT images 02/23/2021. FINDINGS: There is postoperative gas in the soft tissues and overlying skin terri. Normal bilateral superior and inferior pubic rami. Normal pubic symphysis. Normal bilateral ischial tuberosities. There is a left hip arthroplasty without evidence of complication. RAD/Hip Min 2 Views (Portable) IMPRESSION: Uncomplicated left hip arthroplasty. Electronically Signed: Zaid Rankin MD at 14:52 EDT Tel , Service support ,
--- NOTE | 2021-03-02 10:11 | OP.PCM_ITS ---
Report of Operation Date of Procedure: 03/02/21 Description of Surgical Findings:: Preoperative diagnosis: Left hip DJD Postoperative diagnosis: Same Procedure: CT-guided Makoplasty assisted left total hip arthroplasty Implants: Beer Accolade II stem size 4, 127 degree neck angle -2.5 neck length 56 mm Trident II acetabular shell with 35 mm cancellous screw 36 mm ceramic head Anesthesia: Spinal EBL: 150 cc Complications: None Condition: Stable to PACU Indication for procedure: This is a 56-year-old male with severe bilateral hip arthrosis who has failed conservative treatment and wished to undergo left total hip arthroplasty initially then the right. We did discuss operative versus nonoperative intervention including risks of bleeding, infection , nerve artery tissue damage, need for further surgery, fracture, leg length discrepancy dislocation blood clot and need for postoperative physical therapy and postoperative expectations. An informed consent was signed. Procedure: Patient was met in the preoperative holding area once again the operative extremity was identified by both patient and physician and was marked. Patient was met by anesthesia . Anesthesia was started. patient was then positioned in the lateral decubitus position on a well-padded pegboard with an axillary roll. All bony prominences were checked and padded. The patient was prepped and draped in the usual sterile fashion. A timeout was called to ensure the proper patient procedure and extremity were being contemplated. Anatomic landmarks were palpated and marked for a standard posterior lateral approach. Prior to this the ASIS was palpated and 3 fingerbreadths proximal to this 3 pins were placed at a 45 degree angle into the iliac crest with good purchase, stab incisions were made with a 15 blade into the skin prior to placement. The Makoplasty array was then secured. A 10 blade scalpel was used to make a posterior incision through the skin and subcutaneous tissue. retractors were used and electrocautery was used to maintain meticulous hemostasis and dissect full-thickness flaps until the gluteal fascia was reached. The gluteal fascia was incised in line with the gluteal fibers. The bursal tissue was then freed from the underside and a Charnley retractor was placed. The femoral troch anteric checkpoint was placed and leg length was assessed using the trochanteric checkpoint and an EKG lead that was placed on the knee prior to prepping the leg .the fat pad was then elevated off of the external rotators with electrocautery and the external rotators were dissected off of the greater trochanter including the piriformis and were tagged with #1 Ethibond for later repair. The joint capsule opened with posterior trapdoor technique. The hip was surgically dislocated. The measurement on the preoperative CT from the top of the lesser trochanter to the femoral neck cut was marked Hohmann was placed around the lesser trochanter. A neck cutting guide was used to keely the neck with a Bovie and an oscillating saw was used complete the femoral neck cut. The femoral head was then removed and sized. We then turned our attention to the acetabulum. A Bovie was used to make a perforation in the anterior joint capsule and a Lozoya retractor was placed this was repeated in the 6 o'clock position and a wide julienne was placed there. With a long handled knife the labral and pulvinar tissue were removed. We then registered the acetabulum with the pointing array and confirmed our landmarks. Once the socket was thoroughly prepared and labral tissue and pulvinar was removed we single reamed with the robotic arm. We then used the robotic arm to position the acetabular implant and impacted it into place under robotic guidance. We then proceeded to place a posterior superior screw by drilling first measuring and inserting the screw. We then inserted a trial liner. And turned our attention back to the femur at this point a femoral elevator was used. As well as a pointed wide Hohmann around the lesser trochanter and a Hohmann to help retract the gluteus medius. A box chisel was used to remove excess lateral neck followed by a canal finder and a lateralizing reamer. This was followed by sequential broaches. Attention was made of the version within the canal based on preoperative templating. We initially did went with a size 3 stem however upon trialing it was still short with +7-1/2 neck length therefore we placed a size 4 stem and seated it slightly proud. As the 4 stem neck length is inherently longer we had to go with a -2.5 mm neck length once the final broach was seated we then trialed reduced the hip it was determined that a 127 degree neck angle with a -2.5 neck length was the appropriate size. We then checked stability with shuck testing as well as flexion and internal rotation. then proceeded with hip extension and checked leg lengths at the knees and heels as well as with the trochanteric checkpoint and knee EKG lead. At this point trials were removed. Patient was significantly shorter on the left side preoperatively we made him 1 mm longer than the contralateral as he plans to have this hip replaced in the future, A liner was inserted to the cup. The femoral stem was inserted. We re-trialed and then proceeded to impact the femoral head onto the Nayan taper. We then surgically reduce the hip check stability again and leg lengths and were satisfied. Betadine rinse was allowed to sit for 5 minutes while everyone changed their gloves. Thorough irrigation was performed. Followed by closure of the external rotators with #2 FiberWire followed by closure of gluteal fascia with #1 Ethibond. 0 Vicryl fat stitches and 2-0 Vicryl subcutaneous stitches and terri in the skin. A pulls were placed in the pin sites over the iliac crest with Xeroform 4 x 4 and OpSite. dressing was applied to incisional area with Mepilex Ag and an abduction pillow was placed. Patient tolerated the procedure well there was no intraoperative complications all counts were correct and the patient was brought back to the PACU in stable condition
--- NOTE | 2021-03-02 10:16 | EX.PCM.DISCH ---
Discharge Instructions Activity Weight Bearing Status: Weight bearing as tolerated Keep extremity elevated above heart level: Operative Extremity Dressing / Incision Call your doctor if you observe: Shortness of breath and Chest pain Remove Dressing in: 3 days Additional Dressing/Incision Instructions:: Do not shower 72hrs. Begin daily showering warm water antibacterial soap postop day #3( 72hrs Post-operatively) and then daily. Leave the dressing on for 72 hours postoperatively then may remove prior to first shower and change dressing daily after this until no drainage for 2 consecutive days then may leave open to air. Follow hip precautions that were reviewed in hospital. Wear compression stockings, may remove at night. Start physical therapy as directed in hospital. Follow prescriptions instructions do not take any other pain medication or differ dosing without consulting your physician. Do not take oral NSAIDs until blood thinner has been completed , then may begin the day after completion if needed . Call Dr. Adrian's office with any concerns. Follow Up Care Please Follow Up With: Teddy Adrian DO When: 2 weeks Test Results: Test results from this visit will be discussed in further detail at your follow-up appointment, if applicable. Discharge Plan Admission Attending Provider: Teddy Adrian Primary Care Provider: Abundio Kilgore Instructions Patient Instructions: ED Chest Pain, Noncardiac Discharge Orders/Prescriptions Prescriptions: New oxycodone 5 mg Tablet 5 - 10 mg PO Q4H PRN PRN (Reason: Pain Score 4-10) 7 Days Qty: 60 RF: 0 clindamycin HCl 300 mg capsule 600 mg PO Q8H Qty: 4 RF: 0 Eliquis 2.5 MG tablet 2.5 mg PO BID Qty: 42 RF: 0 Continued pantoprazole 40 mg tablet,delayed release (DR/EC) 40 mg PO QHS RF: 0 acetaminophen [Tylenol Extra Strength] 500 mg tablet 500 mg PO Q6H PRN (Reason: Pain) RF: 0 Cyclosporine in Klarity 0.1-0.25 % drops 1 drp OPHTHALMIC BID RF: 0 diphenhydramine HCl [Benadryl Allergy] 12.5 mg/5 mL liquid 25 mg PO QHS PRN (Reason: Sleep) RF: 0 lisinopril 20 MG tablet 20 mg PO DAILY RF: 0 aspirin 81 MG tablet,chewable 81 mg PO DAILY@0800 RF: 0 duloxetine 30 MG capsule,delayed release(DR/EC) 30 mg PO DAILY RF: 0 duloxetine 60 MG capsule,delayed release(DR/EC) 60 mg PO DAILY RF: 0 apremilast 30 MG tablet 30 mg PO BID RF: 0 amlodipine 2.5 mg tablet 2.5 mg PO DAILY RF: 0 nebivolol 2.5 mg tablet 2.5 mg PO DAILY RF: 0 rosuvastatin 5 mg tablet 5 mg PO DAILY RF: 0 Discontinued clopidogrel 75 mg tablet 75 mg PO DAILY RF: 0 naproxen sodium [Aleve] 220 mg capsule 220 mg PO BID PRN (Reason: Pain) RF: 0 Referrals / Follow Up: Abundio Kilgore DO [Primary Care Provider] - Disposition Disposition (needs filled in before D/C Order can be placed): Home, Self Care
== END 2021-03-02 15:27 | disposition home or self-care (01) ==
LOC: SDC 05:31 → AC 05:31
PROVIDERS: Anesthesiology; PCP Family Medicine; Referring Provider Orthopaedic Surgery; Visit Provider Orthopaedic Surgery
PROC: 8E0Y0CZ Robotic Assisted Procedure of Lower Extremity, Open Approach (ICD-10-PCS; CPT 27130; principal; 2021-03-02 07:00)
DX: M16.12 Unilateral primary osteoarthritis, left hip (principal); I25.10 Atherosclerotic heart disease of native coronary artery without angina pectoris; I10 Essential (primary) hypertension; E78.2 Mixed hyperlipidemia; Z95.5 Presence of coronary angioplasty implant and graft; K21.9 Gastro-esophageal reflux disease without esophagitis; G47.30 Sleep apnea, unspecified; Z87.891 Personal history of nicotine dependence; Z79.899 Other long term (current) drug therapy
CPT/HCPCS: 27130; 36415; 73502; 80048; 80076; 82962; 82985; 83735; 85025; 85610; 85730; 86850; 86900; 86901; 87077; 87081; 88305; 88307; 88311; 93005; 97161; C1776; J7040; J7120; J2405

== ENCOUNTER → 2021-04-12 09:37 | Outpatient (CLI) | payer OTHER, SELFPAY ==
[2018-11-07 07:32] VITALS: BMI 31.7
[2021-04-12 12:23] LABS: AST(SGOT) 36 U/L (15-37); Alanine Aminotransfer ALT/SGPT 96 U/L (16-61); Albumin, Serum 3.8 g/dL (3.2-5.0); Alkaline Phosphatase 124 U/L (45-117); Bilirubin, Direct 0.18 mg/dL (0.00-0.30); Cholesterol 163 mg/dL (200); Globulin 3.6 g/dL (2.2-4.2); High Density Lipoprotein 44 mg/dL; Protein, Total 7.4 g/dL (6.4-8.2); Triglycerides 105 mg/dL; Very Low Density Lipoprotein 21 mg/dL (5-40)
== END ==
PROVIDERS: PCP Family Medicine; Referring Provider Nurse Practitioner Family; Visit Provider Nurse Practitioner Family
DX: E78.2 Mixed hyperlipidemia (principal); E78.00 Pure hypercholesterolemia, unspecified
CPT/HCPCS: 36415; 80061; 80076

== ENCOUNTER 2021-04-23 12:00 | Outpatient (RCR) | payer OTHER, SELFPAY ==
[2018-11-07 07:32] VITALS: BMI 31.7
[2021-01-27 09:06] VITALS: BMI 28.7
[2021-03-02 06:38] VITALS: BMI 29.6
--- NOTE | 2021-03-04 12:55 | HP.PTEVAL ---
Patient's Visit Information STEFANIE CARLSON is a 56 year old M referred to Physical Therapy by Dr. Teddy Adrian DO with a diagnosis of s/p L TANNER 03/02/21. Date of Evaluation: 03/04/21 Physical Therapist: Wally Cuellar, DPT, OCS, CSCS - Visit Plan Frequency: 3x /Week Duration: 4-6 Weeks Plan: 3x/week for 3-6 weeks for. 1. monitor need for scar massage. 2. Ensure hip rpecautions with posterior approach but work on ROM and stretching within limitations L hip. 3. strength L hip mat to bodyweigth to gym, eventual progress back to elliptical, bike and dumbbells as tolerated. ice - Subjective L TANNER performed 03/02/21. Will need right one done eventually. Has c45 problem that might require surgery soon also(neck and head pain. Both hips were degenerated. Had L hip pain anteriorly for months especially since July. Hi pain prior to surgery 5/10 daily worse wth walking adn WB. Surgery went well, hurts / and is on pain meds 2 oxy before therapy. It was a posterior approach. Has HEP of AP, QS, GS, SLR which is still very hard. Also doing HS. Walking every hour or two 100 feet or so. Sleep is not comfortable yet. He is s aide sleper. Trying to sleep on back. 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 Can work form home and is on phone adn computer. Basic ADLs: needs wifes help to address, bathroom I, No showering until tomorrow. Hobbies include biking, walks in park and wants to get back to those. Enjjoys ex at home including ellpitical and bike and hand weights that he wants to get back. - Pain L pain hip Pain Intensity (Out of 10): 3 Pain Intensity Range: 2, 6 - Objective Walks with wh walker scraping and very little L LE joint movement until cued. Slow gait but Mod I with wh walker for 120 feet. Reji to stand without Ad solidly. Able to take slow labored small steps without AD but not funcitonal. Pain is with lifting L leg. Transfers are slow but I with UE needed. Steps with R only and railing today SBA. Bed trasnfers slow but I maintaining precautions appropriately. Reji to verbalize rotation and flexion precaution, needed reminded of mid line precaution today. Ankle aROM WFL but hesitant to move L ankle until cued. strength 4- angi nkle. Knee AROM 0-120 B but slow on L due to L hip flexor weakness and pain. 4/5 knee flexion strength adn 4- ext with pain. Hip strength 13# flexiona dn 30# ext. AROM L hip 80 flexion and 0 extension. 20 TUG. reflexes 2/3 patella and achilles. - homans. Incision dressed appropriately with mild edematous tissue around it to palpation. Tender over incision moderately. - Goals Goal 1:: Pain 2/10 at worst and not interrupting sleep Goal Time Frame: 2-4 Weeks Goal 2:: Tolerate FGA and score 28/30 Goal Time Frame: 4-6 Weeks Goal 3:: Pt feel 90% back to normal activity including dressing himself and starting to walk for fitness Goal Time Frame: 4-6 Weeks Goal 4:: Back to strength ex I at home Goal Time Frame: 4-6 Weeks - Rehabilitation Potential Physical Therapy Diagnosis: mobility deficits after TANNER L Rehabilitation Potential: Good - Anticipated Interventions Patient/Client Instruction: Educate patient on: Condition, Plan of Care For the Purpose of:: To decrease pain, To increase ROM, To improve muscle performance and motor function, To increase tolerance to activity/condition/position Therapeutic Exercise to Include: Strength training, Balance training, Postural training, Flexibilty training, Gait and locomotor training, Passive ROM, Active ROM For the Purpose of:: To decrease pain, To decrease swelling/inflammation, To increase ROM, To improve nutrient delivery to tissue, To improve muscle performance and motor function, To improve ability of physical actions for home/community/work/leisure, To improve gait and locomotor functions Manual Therapy Techniques to Include: Scar massage, Soft tissue mobilization For the Purpose of:: To decrease pain, To decrease swelling/inflammation, To increase ROM Cryotherapy (ice pack, ice massage): Yes For the Purpose of:: To decrease pain, To decrease swelling/inflammation Thank you for the opportunity to evaluate your patient. For Medicare and Medicare HMO plans, please review the plan of care and approve it. It will need to be FAXED BACK to us at [phone] for Medicare purposes. For Medicare only, by signing this I certify the plan of care. Please let me know if there are questions or concerns regarding this plan of care. Physician Signature: Date:
--- NOTE | 2021-03-26 12:58 | HP.PTEVAL_ITS ---
Patient's Visit Information STEFANIE CARLSON is a 56 year old M referred to Physical Therapy by Dr. Teddy Adrian DO with a diagnosis of s/p L TANNER 03/02/21. Date of Evaluation: 03/04/21 Physical Therapist: Wally Cuellar, DPT, OCS, CSCS - Visit Plan Frequency: 3x /Week Duration: 4-6 Weeks Plan: 2x/week for 4 weeks for... 1. Try to get more R hip ext(stretch). Gait with narrow AMALIA, stair training and floor trasnfer training within precautions. Progress back to hip strength of squat, deadlift, start WB hip sttrength and progress HEP - Subjective L TANNER performed 03/02/21. Will need right one done eventually. Has c45 problem that might require surgery soon also(neck and head pain. Both hips were degenerated. Had L hip pain anteriorly for months especially since July. Hi pain prior to surgery 5/10 daily worse wth walking adn WB. Surgery went well, hurts 02/06 and is on pain meds 2 oxy before therapy. It was a posterior approach. Has HEP of AP, QS, GS, SLR which is still very hard. Also doing HS. Walking every hour or two 100 feet or so. Sleep is not comfortable yet. He is s aide sleper. Trying to sleep on back. 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 Can work form home and is on phone adn computer. Basic ADLs: needs wifes help to address, bathroom I, No showering until tomorrow. Hobbies include biking, walks in park and wants to get back to those. Enjjoys ex at home including ellpitical and bike and hand weights that he wants to get back. - Pain L pain hip Pain Intensity (Out of 10): 0 Pain Intensity Range: 2, 6 Comment: with exercise - Objective Walks with wh walker scraping and very little L LE joint movement until cued. Slow gait but Mod I with wh walker for 120 feet. Reji to stand without Ad solidly. Able to take slow labored small steps without AD but not funcitonal. Pain is with lifting L leg. Transfers are slow but I with UE needed. Steps with R only and railing today SBA. Bed trasnfers slow but I maintaining precautions appropriately. Reji to verbalize rotation and flexion precaution, needed reminded of mid line precaution today. Ankle aROM WFL but hesitant to move L ankle until cued. strength 4- angi nkle. Knee AROM 0-120 B but slow on L due to L hip flexor weakness and pain. 4/5 knee flexion strength adn 4- ext with pain. Hip strength 13# flexiona dn 30# ext. AROM L hip 80 flexion and 0 extension. 20 TUG. reflexes 2/3 patella and achilles. - homans. Incision dressed appropriately with mild edematous tissue around it to palpation. Tender over incision moderately. - Balance/Special Test Scores Functional Gait Assessment Score: 26 % Disability: 13.3400 - Goals Goal 1:: Pain 2/10 at worst and not interrupting sleep Goal Time Frame: 2-4 Weeks Goal 2:: Tolerate FGA and score 28/30 Goal Time Frame: 4-6 Weeks Goal 3:: Pt feel 90% back to normal activity including dressing himself and starting to walk for fitness Goal Time Frame: 4-6 Weeks Goal 4:: Back to strength ex I at home Goal Time Frame: 4-6 Weeks - Rehabilitation Potential Physical Therapy Diagnosis: mobility deficits after TANNER L Rehabilitation Potential: Good - Anticipated Interventions Patient/Client Instruction: Educate patient on: Condition, Plan of Care For the Purpose of:: To decrease pain, To increase ROM, To improve muscle performance and motor function, To increase tolerance to activity/condition/position Therapeutic Exercise to Include: Strength training, Balance training, Postural training, Flexibilty training, Gait and locomotor training, Passive ROM, Active ROM For the Purpose of:: To decrease pain, To decrease swelling/inflammation, To increase ROM, To improve nutrient delivery to tissue, To improve muscle performance and motor function, To improve ability of physical actions for home/community/work/leisure, To improve gait and locomotor functions Manual Therapy Techniques to Include: Scar massage, Soft tissue mobilization For the Purpose of:: To decrease pain, To decrease swelling/inflammation, To increase ROM Cryotherapy (ice pack, ice massage): Yes For the Purpose of:: To decrease pain, To decrease swelling/inflammation Thank you for the opportunity to evaluate your patient. For Medicare and Medicare HMO plans, please review the plan of care and approve it. It will need to be FAXED BACK to us at [phone] for Medicare purposes. For Medicare only, by signing this I certify the plan of care. Please let me know if there are questions or concerns regarding this plan of care. Physician Signature: Date:
--- NOTE | 2021-06-14 12:37 | HP.PT.NRP ---
STEFANIE CARLSON was seen in my office for initial evaluation on 03/04/21. The following Plan of Care was established for this patient: Initial Frequency: 3x /Week Initial Duration: 4-6 Weeks Patient/Client Instruction: Educate patient on: Condition, Plan of Care For the Purpose of:: To decrease pain, To increase ROM, To improve muscle performance and motor function, To increase tolerance to activity/condition/position Therapeutic Exercise to Include: Strength training, Balance training, Postural training, Flexibilty training, Gait and locomotor training, Passive ROM, Active ROM For the Purpose of:: To decrease pain, To decrease swelling/inflammation, To increase ROM, To improve nutrient delivery to tissue, To improve muscle performance and motor function, To improve ability of physical actions for home/community/work/leisure, To improve gait and locomotor functions Manual Therapy Techniques to Include: Scar massage, Soft tissue mobilization For the Purpose of:: To decrease pain, To decrease swelling/inflammation, To increase ROM Cryotherapy (ice pack, ice massage): Yes For the Purpose of:: To decrease pain, To decrease swelling/inflammation This patient was last seen in our office 04/23/21. Pertinent comments regarding their Physical therapy will appear below: Pt seen for 16 visits of hip rehab. He was doing excellent at over 75% inprovement and was having more trouble with his off hip. He did not schedule or attend any further visits and will be discontinued form PT due to nonattendance. At this point I will be discontinuing this patient from physical therapy. I would be happy to see this patient again in the future if found appropriate by the physician. Thank you! Wally Cuellar, DPT, OCS, CSCS Balance/Gait/Functional tests - Balance/Special Test Scores Functional Gait Assessment Score: 26 % Disability: 13.3400 Lower Extremity Functional Score: 44
== END 2021-04-23 19:00 | disposition home or self-care (01) ==
LOC: PT 12:00
PROVIDERS: PCP Family Medicine; Referring Provider Orthopaedic Surgery; Visit Provider Orthopaedic Surgery
DX: Z47.1 Aftercare following joint replacement surgery (principal); Z96.642 Presence of left artificial hip joint
CPT/HCPCS: 97014; 97110; 97162; 97164; G0283

== ENCOUNTER → 2021-06-02 13:55 | Outpatient (CLI) | payer OTHER, SELFPAY ==
[2018-11-07 07:32] VITALS: BMI 31.7
[2021-06-02 15:30] LABS: Absolute Lymphocyte Count 2.17 X10^3/uL (0.83-4.51); Absolute Neutrophil Count 3.6 X10^3/uL (2.0-7.7); Basophil# 0.03 X10^3/uL; Basophil% 0.5 % (0-1); Eosinophil# 0.09 X10^3/uL; Eosinophils% 1.4 % (0-5); Hematocrit 51.6 % (40-54); Hemoglobin 17.7 g/dL (13.0-16.5); Lymphocyte # 2.17 X10^3/ul (0.83-4.51); Lymphocyte % 34.2 % (19-41); Mean Corp Hgb Conc 34.3 g/dL (32-36); Mean Corpuscular Hgb 30.3 pg (27.0-32.0); Mean Corpuscular Volume 88.2 fL (80-94); Mean Platelet Vol. 10.5 fl (6.2-12.0); Monocyte# 0.47 X10^3/uL; Monocyte% 7.4 % (0-10); NRBC Flagged by Analyzer 0 % (0-5); Neutrophil # 3.58 X10^3/uL (2.7-7.7); Neutrophil % 56.3 % (47-70); Platelet Count 207 K/mm3 (150-450); RBC Distribution Width CV 11.4 % (11.6-14.6); RBC Distribution Width SD 36.2 fl (35.1-43.9); Red Blood Count 5.85 M/mm3 (4.6-6.2); White Blood Count 6.4 K/mm3 (4.4-11.0)
[2021-06-02 16:31] LABS: Anion Gap 5 (5-15); BUN 14 mg/dL (7-18); BUN/Creat Ratio 14.6 RATIO (10-20); Chloride 102 mmol/L (98-107); Creatinine, Serum 0.96 mg/dL (0.70-1.30); EST Glomerular Filtration Rate 86 mL/min (>60); Est Glom Filt Rate - Afr Amer 104 mL/min (>60); Glucose 133 mg/dL (74-106); Potassium 3.6 mmol/L (3.5-5.1); Sodium Level 137 mmol/L (136-145)
[2021-06-02 17:03] LABS: Magnesium 2.2 mg/dL (1.6-2.6)
[2021-06-03 08:50] LABS: HIV - WCH Non-Reactive (Nonreactive); Hepatitis B Surface Antibody Reactive; Hepatitis C Antibody Non-Reactive (Nonreactive)
[2021-06-04 08:17] LABS: Hepatitis A AB, Total Negative (Negative)
== END ==
PROVIDERS: Anesthesiology; PCP Family Medicine; Referring Provider Orthopaedic Surgery; Visit Provider Orthopaedic Surgery
DX: Z01.818 Encounter for other preprocedural examination (principal)
CPT/HCPCS: 36415; 80048; 83735; 85025; 86703; 86706; 86708; 86803; 87081

== ENCOUNTER 2021-06-08 14:39 | Observation (INO) | payer OTHER, SELFPAY ==
[2018-11-07 07:32] VITALS: BMI 31.7
--- NOTE | 2021-06-07 10:53 | PCM.HP.BLA ---
History and Physical Date of Admission: 06/08/21 [facility] [id number] [phone] OFFICE VISITDate of Service: 01/27/21 MR#:[id number]:[id number]: STEFANIE CARLSON [facility] #:[id number]:1965 Provider:Dr. Vahid Paula DOAge/Sex: 56/M Location:[place]:Signed Intake Vital Signs 01/27/21 09:06 BMI 28.7 Intake Visit Reasons: Bilat hips Chief Complaint: Hip Pain Is patient in pain?: Yes Pain scale (1-10): 7 Allergies ciprofloxacin [From Cipro] Allergy (Verified 01/08/21 10:21) Rash ciprofloxacin HCl [From Cipro] Allergy (Verified 01/08/21 10:21) Rash naproxen [From Naprosyn] Allergy (Verified 01/08/21 10:21) Hives amoxicillin [From Augmentin] Adverse Reaction (Severe, Verified 01/08/21 10:21) Hives clavulanic acid [From Augmentin] Adverse Reaction (Severe, Verified 01/08/21 10:21) Hives codeine Adverse Reaction (Intermediate, Verified 01/08/21 10:21) Nausea isosorbide Adverse Reaction (Intermediate, Verified 01/08/21 10:21) headache, cannot focus fluoroquinolon Allergy (Mild, Uncoded 01/08/21 10:22) Rash [facility] Medical History (Updated 01/27/21 @ 10:[address] Vahid Paula DO) Atherosclerotic heart disease of [place] coronary artery without angina pectoris CAD (coronary artery disease) Chest discomfort Chest pain Essential hypertension Mixed hyperlipidemia Obesity (BMI 30.0-34.9) Surgical History H/O reconstruction of anterior cruciate ligament tear History of bilateral inguinal hernia repair (~1976) History of percutaneous transluminal coronary angioplasty (~09/15/03) History of tonsillectomy and adenoidectomy (~1970) Presence of stent in coronary artery (05/29/19) Status post anal fissurectomy Family History Father CAD (coronary artery disease) Diabetes HLD (hyperlipidemia) Hypertension Mother Breast cancer Cancer liver cancer Sister Lichen sclerosus Social History (Updated 08/31/20 @ 14:[address] Emanuel Kelly MD) Smoking Status: Former smoker how long ago did patient quit smokin alcohol intake: current alcohol intake frequency: 0-2 drinks per day Alcohol type: beer, wine and hard liquor substance use type: does not use caffeine: Yes Type: coffee Number of servings: 1 what type of physical activity do you participate in: none seatbelt use: always do you feel safe at home: Yes HPI Bilat hips Details: Parts of this documentation were recorded by a scribe, this documentation accurately reflects the service provided and the decisions made by me, Dr. Vahid Paula, DO 01/27/21 0900. STEFANIE CARLSON is a 56 year old M here today for a review of his MRI of his hips. Patient denies any changes in his pain since his last adjustment. His MRI was done on 01/22/21. Patient would also like to discuss his neck pain and review his cervical MRI done on 12/29/20. Patient states that he has constant neck pain that he rates as a 8/10. Neck pain is worsened by neck rotation. Patient has frequent popping in the neck but denies any radiculopathy to the arms. career services coordinator was unreflective for his neck pain. Stefanie is here first for follow-up on his MRI scans of both hips. I reviewed the MRI scans and the MRI scan report. He has significant arthritis of both the right and the left hip. This has been the problem along with him and not his low back. I am also seeing him for his cervical spine today he has had left-sided neck pain that sometimes goes into the top of the shoulder for a long long time. It has gradually worsened over time. He does not really get headaches is mostly the neck pain from the occiput down. It is only ever on the left side he has never had it on the right side. It does not go down his arm. On rare occasion he gets it is Shante is deltoid but that is it. Overall he states that his hips bother him more than his neck does but the neck is quite significant. On examination of the neck he has pain with flexion or extension of his cervical spine he has positive Spurling's to the left side. He otherwise has excellent motor strength in all the major muscle groups of both upper extremities. He has no long tract signs. Clonus is absent Babinski's are downgoing. He has 1+ triceps biceps and brachioradialis reflexes bilaterally. He is well-developed without any atrophy. We discussed his 2 different issues that of the hips and that of the neck. He feels that the hip issue is much more disabling than the neck issue is at this time. We are going to order a single epidural steroid injection for his cervical spine to see how he responds. Incidentally I did review his MRI scan of the cervical spine that demonstrates that he has what is probably a herniation along with hard disc disease at C4-5 on the left side which is probably the cause of his symptoms. He also has marked degeneration at see 5 6 and C6-7 however he does not have any symptoms from those. I told him when we address this surgically but we probably will only address the main problem that at C4-5 and simply observe the other 2 levels over time. First epidural steroid to see how he responds. In the interim I am referring him to Dr. Berry for his 2 arthritic hips. I would like to visit him 1 week after his single cervical epidural steroid injection. Coding Level of Care Code Off vis,new,level 3 Diagnoses Degenerative joint disease of both hips M16.0 Osteoarthritis type: primary HNP (herniated nucleus pulposus), cervical M50.20 Time Spent (min) 30 Assessment and Plan Assessment and Plan (1) Degenerative joint disease of both hips: Status: Acute Qualifiers: Osteoarthritis type: primary Qualified Code(s): M16.0 - Bilateral primary osteoarthritis of hip (2) HNP (herniated nucleus pulposus), cervic
[2021-06-08] VITALS (18 sets, daily range): BP systolic 101–145; BP diastolic 61–92; PULSE 80–107; RESP 16–20; TEMP 35.8–37.3; O2SAT 90–98; BMI 29.7
[2021-06-08] MEDS: Lactated Ringers 1,000 ML 100 ML IV ×3 (10:27→19:06)
[2021-06-08] MEDS: Acetaminophen 500 MG Tablet 1000 MG PO (10:29)
[2021-06-08] MEDS: dexAMETHasone 10 MG/ML Vial 8 MG IV (10:30)
[2021-06-08 10:36] LABS: Bedside Glucose 83 mg/dL (70-110)
--- NOTE | 2021-06-08 11:30 | RAD_ITS ---
STUDY: X-RAY - CERVICAL SPINE REASON FOR EXAM: Male, 56 years old. ANTERIOR FUSION C4-5,LEFT TECHNIQUE: 1 view(s) of the cervical spine were obtained. COMPARISON: None FINDINGS: Localizing instrument is seen along the anterior aspect of the C5-C6 level. RAD/Spine 1 View Any Level IMPRESSION: Localizing instrument is seen along the anterior aspect of the C5-C6 vertebral level. Electronically Signed: Jairo Alvarez MD at 13:15 EST , Service support ,
--- NOTE | 2021-06-08 11:35 | DISC_PTH ---
PATIENT: STEFANIE CARLSON LOC: MS3 U#:[id number] AGE/SX: 56/M ROOM: [facility] [place] RE06/08/[address]: Dr. Vahid Paula DO : 1965 BED: 1 DIS: 06/09/2021 SPEC #: [id number] RECD: 06/09/21 10:13 STATUS: EMILIANO REBree #: [id number] MICHELE: 06/08/21 11:[address]: Vahid Paula DEPT: SURGICAL PATHOLOGY RECD BY: Lauren Ruiz ENTERED: 06/09/21 13:27 SP TYPE: DISC OTHR DR: DO Dr. Abundio Caal DO Tissues: Intervertebral disc, NOS Procedures: Surgery Specimen Level III HEADER OPERATION: ERAS, anterior cervical fusion C4-5 PRE-OP DIAGNOSIS: Herniated nucleus pulposus, cervical TISSUE SUBMITTED: Disc C4-5 MICROSCOPIC DIAGNOSIS Intervertebral disc, C4-5, discectomy: Fragments of intervertebral disc with degenerative change. AM:ayesha 06/10/2021 MICROSCOPIC DESCRIPTION Slides are reviewed. GROSS DESCRIPTION Received in fixative is one container labeled with the patient's name and designated disc 4-5. The specimen consists of multiple pieces of logan, indurated tissue measuring in aggregate 5 x 3 x 0.3 cm. The entire specimen is submitted in two cassettes. / SJ:ayesha 06/09/21 TC:5 CPT: 71519
--- NOTE | 2021-06-08 12:25 | RAD_ITS ---
History: Surgical fusion Cervical spine: Findings: Lateral view of the cervical spine obtained in the OR at the time of surgical fusion. Radiographic marker is noted at the C4-5 level. IMPRESSION: As above. at 1323 Reported and signed by: Washington Munoz MD Electronically Signed: Washington Munoz MD at 13:22 EST Tel , Service support , RAD/Spine 1 View Any Level
[2021-06-08] MEDS: THROMBIN (RECOMBINANT) 20,000 UNIT VIAL 20000 UNIT TOPICAL (12:29)
[2021-06-08] MEDS: Heparin 10,000 UNITS/10 ML Vial 10000 UNITS (12:31)
--- NOTE | 2021-06-08 13:44 | RAD_ITS ---
History: FUSION C4-5 Cervical spine single lateral view: Findings: No fracture or subluxation. Disc implant in place with anterior fusion plate at C4-5. Precervical soft tissues are normal. IMPRESSION:Satisfactory postop change. at 1656 Reported and signed by: Washington Munoz MD Electronically Signed: Washington Munoz MD at 16:55 EST Tel , Service support , RAD/Spine 1 View Any Level
--- NOTE | 2021-06-08 15:00 | PCM.OPRPT ---
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 Paula assistant terminal manager: Paige WILSON Anesthesia: General endotracheal anesthesia administered by [facility] EBL: Less than 30 cc Drains: 1/4 inch [place] Complications: None Procedure: Patient was taken to the OR where he was placed in the supine position on the operating table he was then placed under general endotracheal anesthesia. A Pang catheter was inserted. Neuro monitoring then placed all the leads and the patient. The right crest and the cervical spine first were marked with a needle and an intraoperative x-ray was taken. Was found to be at a good level and made a small incision with the end of the needle two-point the starting point for the incision. The neck was then prepped and draped standard fashion. I then made the incision over that predetermined point incurvate line with longer's lines to the edge of the right sternocleidomastoid muscle. Subcutaneous tissues were incised the length of the skin incision. I undermined the subcutaneous tissues above and below the incision off of the platysma. The platysma was then split longitudinally in the fascial planes opened up including the precervical fascia followed by the the opening of the pretracheal fascia. I then retracted the midline structures that is the trachea and esophagus to the left the carotid bundle to the right exposing the precervical fascia. I then opened the precervical fascia longitudinally at the area thought to be C4-5. An intraoperative x-ray was then taken with a needle marker in place to assure that we were indeed at 4 5 which we were. This was then marked with a whole using cautery into the disc as we remove the needle. I then cauterized the longus coli muscles on either side elevated them gently off of the disc space. The belt machine operator retractors were then put in place under the longus coli muscles on either side I also put them up and down to give me a good working area. Following this we used cautery to cauterize the anterior longitudinal ligament and periosteum above and below the disc space. I then remove the anterior annulus with a 15 blade and used pituitaries to remove the disc back to near the back of the intervertebral space. Curettes were then used to curette cartilage off both endplates. Following this I used a bur to bur the anterior osteophytes and make them level in order to accept a plate. Using the 4 mm chevy bur I used technique whereby I would bur the uncinate process on the left side repeatedly followed by instillation of cold saline this was done repeatedly until it was a very thin shell that was directly on the base of the C5 nerve root. I then used small curettes to carefully remove the thinned shell of bone off of the base of the nerve root. This completely decompressed the C5 nerve on the left side. This was then checked with a nerve hook was found to be open above the disc base. A chevy bur was then used to enlarge the space posteriorly and to thin the uncinate processes on either side in order to take a larger cage. Once this was done I took my measurements for a cage and found that we needed a 7 mm cage as used on the trial. I then used a 7 mm and 8 mm broach to broach the space until we had good bleeding endplate. The 7 mm cage was opened it was filled with demineralized bone matrix that was processed in a spongy fashion and it was then soaked in the patient's own concentrated stem cells. But that this was done earlier in the case where I have simply put a Jamshidi needle in the right iliac crest removed 60 cc of bone marrow aspirate that was then handed off to the engineering laboratory technician in the room she then the stem cells from the rest of the cells and concentrated them several times probably more like 8 or 10 times. The DBM was then soaked in the patient's own stem cells it was then tamped into place and countersunk approximately 2 to 3 mm. A 22 mm spider plate was then used once centered I did use a pin to hold it in place and all at the other 3 corners. Once the awl hole was made then we entered with a self-tapping 14 mm long 5 mm screws. The pin was then replaced with another fourth 5 mm screw. Note that the this particular type of device is self locking in there was no need to activated the locking mechanism. This was then observed on the lateral x-ray intraoperatively was found to be satisfactory with good position of the plate the screws and the cage. A / inch Yesica drain was left in place I then reapproximated the platysma running fashion with 5-0 Vicryl followed by closure of subcutaneous tissues with 5-0 Vicryl interrupted fashion and the skin was approximated using a running subcuticular stitch with 5-0 nylon sterile dressings were then applied note that we did leave the 1/4 inch Yesica drain in place. Patient was then recovered in the OR moved to his hospital bed and taken to recovery in satisfactory condition. The end of operative summary point Kaz Fournier. This is Dr. Paula dictating.
--- NOTE | 2021-06-08 18:40 | PN.HOSP_ITS ---
Documented by User: Daria Lara NP-Raul 06/08/21 18:49 Subjective Subjective Seen and examined. Patient sitting in bed no distress noted. Patient states that he is feeling very sleepy from surgery but otherwise is feeling okay. Patient states that his pain is actually improved in comparison to before leija rgery. Patient states that he is just feeling sore and uncomfortable. Objective Data Objective Data Vital Signs: Vital Signs Temp Pulse Resp BP Pulse Ox 99.1 F 93 16 129/81 H 94 06/08/21 18:21 06/08/21 18:21 06/08/21 18:21 06/08/21 18:21 06/08/21 18:21 Oxygen Flow Rate (L/min) 4 Oxygen Delivery Method Nasal Cannula Weight: 213 lb 9.6 oz Body Mass Index (BMI) 29.7 Intake & Output: Intake and Output for Last 24 Hours 06/06/21 06/07/21 06/08/21 23:59 23:59 23:59 Intake Total 2211 / 2211 Output Total 500 / 500 Balance 1711 / 1711 Lab / Micro Data Labs: Laboratory Results - last 24 hr 06/08/21 10:14: POC Glucose 83 Radiography Diagnostic Testing: Radiology Impression Spine X-Ray 06/08/21 11:30 IMPRESSION: Localizing instrument is seen along the anterior aspect of the C5-C6 vertebral level. Electronically Signed: Jairo Alvarez MD at 13:15 EST , Service support , Spine X-Ray 06/08/21 12:25 Spine X-Ray 06/08/21 13:44 Physical Exam Const alert, oriented x3 and no apparent distress HEENT head/scalp atraumatic Head and Scalp: normocephalic Eyes conjunctivae normal and no scleral icterus Neck Neck Narrative: Large dressing to anterior neck, dry and intact. Surgical incision not visualized at this time. General: trachea midline Resp normal respiratory effort, normal air movement and clear to auscultation bilaterally Effort and Inspection: able to speak in complete sentences and symmetric chest movement Cardio regular rate, regular rhythm, S1 normal heart sound and S2 normal heart sound GI normal to inspection, nondistended, normoactive bowel sounds, soft to palpation and non-tender Extremity normal to inspection, full ROM and no clubbing, cyanosis or edema Skin no rashes or lesions noted, no wounds and skin turgor normal Neuro oriented x3, moves all extremities, no focal motor deficits and no sensory deficits noted Sensorium / Orientation: awake and alert Psych affect normal Assessment & Plan Assessment/Plan (1) Neck pain: (2) HNP (herniated nucleus pulposus), cervical: PLAN: 1. Hypertension -Continue lisinopril, amlodipine, nebivolol -Vital signs per protocol, trend BP, currently stable 2. Psoriatic arthritis -Patient currently on apremilast, will hold while patient is inpatient 3. Hyperlipidemia -Continue atorvastatin -Last lipid panel 04/12/2021 within normal limits 4. Presence of stent in coronary artery -Stent to the proximal RCA 11/16/2018, stent to mid left circumflex 05/29/2019 -Continue clopidogrel and aspirin 5. Fusion of the C4-C5 with application of fine plate and titanium cage -Surgery completed 06/08/2021 -Pain management per surgeon -[place] drain in place DVT prophylaxis-SCDs This patient was seen by Daria Lara, DIE STAMPING PRESS OPERATOR-C under the supervision of Dr. Martinez Documented by User: Dr. Abundio Martinez DO 06/08/21 19:39 Charges/Coding Addendum Addendum: Patient was seen in [facility] today independently of Janet Lara, he underwent surgery today for cervical fusion of C4-C5. Medical problems include osteoarthritis, coronary artery disease, hyperlipidemia, and essential hypertension. At the time of my examination, patient's is in his room, patient is somnolent due to his postop status. On examination he appeared his stated age, he appeared in no distress, he appeared to be somewhat somnolent. Vital signs as documented. Skin warm and dry and without overt rashes. Neck without JVD, neck was supple, trachea midline, thyroid was normal. Lungs clear bilaterally, normal air movement was noted. Heart exam notable for regular rhythm, normal sounds and absence of murmurs, rubs or gallops. Abdomen unremarkable and without evidence of organomegaly, masses, or abdominal aortic enlargement. Bowel sounds are present, abdomen is not distended. Extremities nonedematous, no cyanosis was noted, no clubbing was noted. Neuro: Cranial nerves II through XII are grossly intact, no focal motor deficits were noted, sensation to light touch and pinprick intact, motor exam 5/5 throughout. Psych: Patient is somnolent, he does answer questions appropriately however. Patient appears stable postop at this time, I have reviewed Janet Lara's progress note including her medical assessment and plan of care and endorse it. Visit Charges Inpatient E&M: 82495 Subs Hosp L2
[2021-06-08] MEDS: Ensure Surgery 237 ML LIQUID PO (18:58)
[2021-06-08] MEDS: dexAMETHasone 4 MG/ML Vial IV (18:59)
[2021-06-08] MEDS: traMADol 50 MG Tablet PO ×2 (20:27→22:28)
[2021-06-08] MEDS: Famotidine 20 MG Tablet PO (22:28)
[2021-06-08] MEDS: Senna/Docusate Sodium 1 Tablet 2 TABLET PO (22:28)
[2021-06-08] MEDS: Atorvastatin Calcium 80 MG Tablet PO (22:28)
[2021-06-08] MEDS: Pantoprazole Sodium 40 MG Tablet PO (22:28)
--- NOTE | 2021-06-08 22:40 | NURSING ---
Patient assisted into chair at this time, tolerated well.
[2021-06-09] MEDS: dexAMETHasone 4 MG/ML Vial IV (00:13)
[2021-06-09] MEDS: Morphine 4 MG/ML Syringe IV ×2 (01:24→07:39)
[2021-06-09 02:33] VITALS: BP 124/66; PULSE 102; RESP 18; TEMP 36.6; O2SAT 94
[2021-06-09] MEDS: traMADol 50 MG Tablet PO ×2 (05:30→12:58)
[2021-06-09] MEDS: dexAMETHasone 4 MG/ML Vial 2 MG IV ×2 (05:30→11:11)
[2021-06-09 05:37] VITALS: BP 121/76; PULSE 101; RESP 18; TEMP 36.4; O2SAT 94
--- NOTE | 2021-06-09 06:49 | NURSING ---
Patient ambulated in hallway with this RN, tolerated well.
[2021-06-09 07:22] VITALS: BP 128/92; PULSE 102; RESP 16; TEMP 37; O2SAT 95
[2021-06-09 07:24] VITALS: O2SAT 94
[2021-06-09] MEDS: Lisinopril 20 MG Tablet PO (07:28)
[2021-06-09] MEDS: DULoxetine Hcl 60 MG Capsule PO (07:29)
[2021-06-09] MEDS: Famotidine 20 MG Tablet PO (07:29)
[2021-06-09] MEDS: amLODIPine 2.5 MG Tablet PO (07:29)
[2021-06-09] MEDS: DULoxetine Hcl 30 MG Capsule PO (07:29)
[2021-06-09] MEDS: Ensure Surgery 237 ML LIQUID PO ×2 (07:36→11:11)
[2021-06-09] MEDS: 0.9% Saline Lock 10 ML Syringe IV ×2 (07:39→11:11)
--- NOTE | 2021-06-09 09:20 | CASEMGMT ---
DANTE FITZGERALD Assessment: Face to Face with pt for initial transition planning/care coordination assessment. DANTE FITZGERALD introduced self and role at [facility], pt voices understanding and consents to assessment. Pt is A/O x4 and answers all questions appropriately at this time. Pt sitting up in bed on RA in no distress. Care providers, pharmacy, and demographics verified/updated. Admitting Dx: Anterior cervical fusion PCP:Magui Specialists:Chai, spine surgeon; Leticia, cardio; Kaylah, ortho; Allan, derm Preferred Pharmacy: [facility] while inpt Insurance: [employer] [place] [employer] Prescription Benefit: yes LW/HPOA: Pt has a LW on file at [facility]. Pt does not think he has a DPOA. LNOK: Zulema Fournier, ' Debby Montoya, sister Living Arrangements: Pt lives with in a ranch home with 2 steps to enter with a rail. Pt reports he is I in ADL's and denies concerns at home. Transportation: Pt drives self and denies concerns with transportation. DME/HHC/SNF: Pt has a cane, walker, toilet seat riser and shower chair. Pt does not use any AD currently to ambulate. Pt denies hx of HHC or SNF stays. Pt states no concerns with going home at time of dc. Pt states no further concerns/needs. CM to follow. Advised pt to ask CM if any further question/concerns/needs arise, voices understanding. Pt Goal: Home Plan: Home
--- NOTE | 2021-06-09 12:37 | PCM.DC ---
Discharge Instructions Follow Up Care Test Results: Test results from this visit will be discussed in further detail at your follow-up appointment, if applicable. Discharge Plan Admission Admit Date/Time: 06/08/21 14:39 Attending Provider: Vahid Paula Primary Care Provider: Abundio Kilgore Consulting Providers: Abundio Martinez Discharge Orders/Prescriptions Prescriptions: No Action pantoprazole 40 mg tablet,delayed release (DR/EC) 40 mg PO QHS RF: 0 acetaminophen [Tylenol Extra Strength] 500 mg tablet 1,000 mg PO BID RF: 0 Cyclosporine in Klarity 0.1-0.25 % drops 1 drp OPHTHALMIC DAILY RF: 0 atorvastatin 80 mg tablet 80 mg PO DAILY RF: 0 Otezla 30 mg tablet 30 mg PO BID RF: 0 diphenhydramine HCl [Benadryl Allergy] 12.5 mg/5 mL liquid 25 mg PO QHS PRN (Reason: Sleep) RF: 0 clopidogrel [Plavix] 75 mg tablet 75 mg PO DAILY RF: 0 lisinopril 20 MG tablet 20 mg PO DAILY RF: 0 aspirin 81 MG tablet,chewable 81 mg PO DAILY@0800 RF: 0 duloxetine 30 MG capsule,delayed release(DR/EC) 30 mg PO DAILY RF: 0 duloxetine 60 MG capsule,delayed release(DR/EC) 60 mg PO DAILY RF: 0 amlodipine 2.5 mg tablet 2.5 mg PO DAILY RF: 0 nebivolol 2.5 mg tablet 2.5 mg PO DAILY RF: 0 Referrals / Follow Up: Abundio Kilgore DO [Primary Care Provider] - Disposition Discharge Orders: Discharge Patient (Routine); Ordered 06/09/21 Ordered By: Dr. Vahid Paula
--- NOTE | 2021-06-09 12:38 | PCM.PN.ORT ---
Objective Data Objective Data Vital Signs: Vital Signs Temp Pulse Resp BP Pulse Ox 98.6 F 102 H 16 128/92 H 94 06/09/21 07:22 06/09/21 07:22 06/09/21 07:22 06/09/21 07:22 06/09/21 07:24 Oxygen Flow Rate (L/min) 2.5 Oxygen Delivery Method Nasal Cannula Weight: 213 lb 2.992 oz Body Mass Index (BMI) 29.7 Intake & Output: Intake and Output for Last 24 Hours 06/07/21 06/08/21 06/09/21 23:59 23:59 23:59 Intake Total 3673.67 / 3673.67 3106 / 3106 Output Total 1650 / 1650 3025 / 3025 Balance / 81 / 81 Radiography Diagnostic Testing: Radiology Impression Spine X-Ray 06/08/21 11:30 IMPRESSION: Localizing instrument is seen along the anterior aspect of the C5-C6 vertebral level. Electronically Signed: Jairo Alvarez MD at 13:15 EST , Service support , Spine X-Ray 06/08/21 12:25 Spine X-Ray 06/08/21 13:44 Procedure Criteria Elective Risks - COVID COVID Risk Discussion: Postop day #1. Kaz relates that his left sided neck pain and left-sided headaches are completely resolved and have been since he woke up from surgery yesterday. His voice is clear he has no Osiris syndrome. I change his dressing and remove the drain. The incision is healing well. I gave him and his directions as to what to do and what not to do. He needs a regular diet now. He is not to lift over 20 pounds. He is not to drive for 2 weeks. I will see him in the office in a week and a half. He knows to call the office if he has any problems or something does not seem right.
[2021-06-09 12:55] VITALS: BP 156/90; PULSE 91; RESP 14; TEMP 36.7; O2SAT 98
== END 2021-06-09 13:50 | disposition home or self-care (01) ==
LOC: SDC 06-09 08:29 → MS3 06-09 08:29
PROVIDERS: Admitting Provider Orthopaedic Surgery; PCP Family Medicine; Visit Provider Orthopaedic Surgery
PROC: (CPT 22551; principal; 2021-06-08 11:05)
DX: M50.221 Other cervical disc displacement at C4-C5 level (principal); M54.12 Radiculopathy, cervical region; M16.0 Bilateral primary osteoarthritis of hip; I25.10 Atherosclerotic heart disease of native coronary artery without angina pectoris; L40.50 Arthropathic psoriasis, unspecified; E78.2 Mixed hyperlipidemia; I10 Essential (primary) hypertension; E66.9 Obesity, unspecified; Z95.5 Presence of coronary angioplasty implant and graft; Z87.891 Personal history of nicotine dependence; Z68.29 Body mass index [BMI] 29.0-29.9, adult; Z79.02 Long term (current) use of antithrombotics/antiplatelets; Z79.82 Long term (current) use of aspirin; Z79.899 Other long term (current) drug therapy
CPT/HCPCS: 20931; 20939; 22551; 22845; 22853; 72020; 82962; 88304; 96361; 96365; 96366; 96375; 96376; 99218; 99251; C1713; J7120; A4216; G0378; G0463; J2405

== ENCOUNTER → 2021-06-21 12:44 | Outpatient (CLI) | payer OTHER, SELFPAY ==
[2018-11-07 07:32] VITALS: BMI 31.7
--- NOTE | 2021-06-21 12:48 | CT_ITS ---
STUDY: CT RIGHT LOWER EXTREMITY WITHOUT CONTRAST REASON FOR EXAM: Right hip osteoarthritis, surgical planning. TECHNIQUE: Transaxial CT imaging of the lower extremity was performed. Sagittal and coronal images were reconstructed. Individualized dose optimization techniques were used for this CT. COMPARISON: Radiographs 01/08/2021. FINDINGS: Right hip: There are marginal osteophytes and severe joint space narrowing of the superior lateral right hip (coronal reconstructions 57-67). There is arthrosis of the sacroiliac joints bilaterally (axial images 115-168). There is a contralateral left hip arthroplasty. Right knee: There are postoperative changes from anterior cruciate ligament reconstruction of the knees bilaterally. CT/Extremity Lower without Contra IMPRESSION: Right hip osteoarthritis. Electronically Signed: Zaid Rankin MD at 14:58 EST Tel , Service support ,
== END ==
PROVIDERS: PCP Family Medicine; Referring Provider Orthopaedic Surgery; Visit Provider Orthopaedic Surgery
DX: M16.11 Unilateral primary osteoarthritis, right hip (principal)
CPT/HCPCS: 73700

== ENCOUNTER 2021-07-06 05:29 | Day surgery (SDC) | payer OTHER, SELFPAY ==
[2018-11-07 07:32] VITALS: BMI 31.7
[2021-06-23 13:56] LABS: Prothrombin Time (Protime)PT. 12.4 SECONDS (11.7-14.9)
[2021-06-23 13:57] LABS: Partial Thromboplast Time 23.7 Seconds (24.1-36.2)
[2021-06-26 08:53] LABS: Fructosamine 221 umol/L (0-285)
--- NOTE | 2021-07-05 | HIP_PTH ---
PATIENT: STEFANIE CARLSON LOC: [facility] U#:[id number] AGE/SX: 56/M ROOM: RE07/06/[address]: Dr. Teddy Adrian DO : 1965 BED: DIS: 07/06/2021 SPEC #: [id number] RECD: 07/06/21 11:01 STATUS: EMILIANO SHAYY #: [id number] MICHELE: 07/05/21 00:[address]: Teddy Adrian DEPT: SURGICAL PATHOLOGY RECD BY: Stefan Stoner ENTERED: 07/06/21 12:58 SP TYPE: TOTAL HIP OTHR DR: Dr. Abundio Kilgore DO Tissues: Hip, NOS Procedures: Decalcification bone/plaque Surgery Specimen Level IV HEADER OPERATION: ERAS, total hip replacement robotic arm assist PRE-OP DIAGNOSIS: Degenerative joint disease of right hip TISSUE SUBMITTED: Right hip bone and soft tissue MICROSCOPIC DIAGNOSIS Bone and tissue of right hip, total hip resection: Severe degenerative joint disease. AM:ayesha 07/09/2021 MICROSCOPIC DESCRIPTION Slides are reviewed. GROSS DESCRIPTION Received is one container labeled with the patient's name and designated right hip bone and tissue. The specimen consists of a femoral head measuring 6 x 5.5 x 5 cm. The articular surface displays prominent osteophyte formation, eburnation and focal bone erosion. Also present in the specimen container are multiple irregular fragments of bone reamings and bone measuring in aggregate 11 x 10 x 1 cm. Machine Stacker sections are submitted in two cassettes after decalcification as follows: 1 ? articular surface of femoral head, 2 - bone reamings. / AM:ayesha 07/06/21 TC:5 CPT: 09084, 83624
[2021-07-06] VITALS (13 sets, daily range): BP systolic 94–149; BP diastolic 59–97; PULSE 54–85; RESP 12–18; TEMP 35.9–37; O2SAT 94–100; BMI 29.5
[2021-07-06] MEDS: Lactated Ringers 1,000 ML 100 ML IV (06:43)
[2021-07-06] MEDS: Gabapentin 600 MG Tablet PO (06:44)
[2021-07-06] MEDS: Acetaminophen 500 MG Tablet 1000 MG PO ×2 (06:44→14:15)
[2021-07-06] MEDS: Lactated Ringers 1,000 ML 999 ML IV (06:44)
[2021-07-06] MEDS: Scopolamine 1mg/72hr Patch 1 PATCH TD (06:44)
[2021-07-06 06:56] LABS: Bedside Glucose 80 mg/dL (70-110)
[2021-07-06] MEDS: Lactated Ringers 1,000 ML 125 ML IV (07:00)
--- NOTE | 2021-07-06 07:18 | PCM.HP.BLA ---
History and Physical Date of Admission: 07/06/21 Date of Service: 06/28/21 MR#:[id number]:[id number]: STEFANIE CARLSON [facility] #:[id number]:1965 Provider:Dr. Teddy Adrian, DOAge/Sex: 56/M Location:[facility]:Signed Intake Intake Visit Reasons: RIGHT HIP Chief Complaint: ANT CERVICAL FUSION Allergies ciprofloxacin [From Cipro] Allergy (Verified 06/22/21 08:49) Rash ciprofloxacin HCl [From Cipro] Allergy (Verified 06/22/21 08:49) Rash naproxen [From Naprosyn] Allergy (Verified 06/22/21 08:49) Hives amoxicillin [From Augmentin] Adverse Reaction (Severe, Verified 06/22/21 08:49) Hives clavulanic acid [From Augmentin] Adverse Reaction (Severe, Verified 06/22/21 08:49) Hives codeine Adverse Reaction (Intermediate, Verified 06/22/21 08:49) Nausea isosorbide Adverse Reaction (Intermediate, Verified 06/22/21 08:49) headache, cannot focus fluoroquinolon Allergy (Mild, Uncoded 06/22/21 08:49) Rash Medications aspirin 81 mg PO DAILY@0800 01/24/20 [History Confirmed 06/28/21] duloxetine 30 mg PO DAILY 01/24/20 [History Confirmed 06/28/21] duloxetine 60 mg PO DAILY 01/24/20 [History Confirmed 06/28/21] lisinopril 20 mg PO DAILY 01/24/20 [History Confirmed 06/28/21] acetaminophen 500 mg tablet 1,000 mg PO BID 08/31/20 [History Confirmed 06/28/21] cyclosporine 0.1 %-chondroitin sulfate A sodium 0.25 % eye drops 1 drp OPHTHALMIC DAILY ml 08/31/20 [History Confirmed 06/28/21] pantoprazole 40 mg tablet,delayed release 40 mg PO QHS 08/31/20 [History Confirmed 06/28/21] amlodipine 2.5 mg PO DAILY 02/18/21 [History Confirmed 06/28/21] nebivolol 2.5 mg PO DAILY 02/18/21 [History Confirmed 06/28/21] apremilast 30 mg tablet 30 mg PO BID 03/15/21 [History Confirmed 06/28/21] atorvastatin 80 mg tablet 80 mg PO DAILY 03/15/21 [History Confirmed 06/28/21] clopidogrel 75 mg tablet 75 mg PO DAILY 04/12/21 [History Confirmed 06/28/21] [facility] Medical History (Updated 06/28/21 @ 10:[address] Teddy Adrian DO) Alcohol use Anxiety Arthritis Atherosclerotic heart disease of red devil coronary artery without angina pectoris Blood disorder CAD (coronary artery disease) Cardiology follow-up encounter Cardiology follow-up encounter CPAP (continuous positive airway pressure) dependence Dietary restriction Essential hypertension Excessive bleeding Gastric reflux Gastric reflux Hemochromatosis High cholesterol History of heart attack History of pain when walking History of stress test Hypertension Injury of head and neck Leg cramps Loss of hearing Mixed hyperlipidemia Obesity (BMI 30.0-34.9) Psoriasis Ruptured disc, cervical Sleep apnea Wears glasses Surgical History (Updated 06/22/21 @ 09:08 by Anika Hylton) H/O reconstruction of anterior cruciate ligament tear History of bilateral inguinal hernia repair (~1976) History of cardiac catheterization History of cataract surgery History of colonoscopy History of percutaneous transluminal coronary angioplasty (~09/15/03) History of tonsillectomy and adenoidectomy (~1970) History of total left hip arthroplasty History of vitrectomy Hx of fusion of cervical spine Presence of stent in coronary artery (05/29/19) Status post anal fissurectomy Family History Father CAD (coronary artery disease) Diabetes HLD (hyperlipidemia) Hypertension Mother Breast cancer Cancer liver cancer Sister Lichen sclerosus Social History Smoking Status: Former smoker how long ago did patient quit smokin alcohol intake: current alcohol intake frequency: 0-2 drinks per day Alcohol type: beer, wine and hard liquor substance use type: does not use caffeine: Yes Type: coffee Number of servings: 1 what type of physical activity do you participate in: none seatbelt use: always do you feel safe at home: Yes HPI RIGHT HIP Details: Parts of this documentation were recorded by a scribe, this documentation accurately reflects the service provided and the decisions made by me, Dr. Teddy Adrian DO 06/28/21 [id number]. STEFANIE CARLSON is a 56 year old M here today for a preop appointment for the right TANNER DOS is scheduled for 07/06/2021. He states he has lateral hip pain. Denies any groin pain. Denies any radiating leg pain. Denies numbness, tingling or other associated symptoms. He states that the pain is similar to the left hip pain he was having prior to surgery that resolved with replacement. He states that his health program specialist informed him to stop the Plavix 7 days prior to surgery and stop the baby aspirin 3 days prior to surgery. He recently had a cervical fusion on 06/08/2021. Ortho Exam General General: Yes no acute distress Neurologic: Yes alert and Yes oriented x3 Psychologic: Yes reasonable and appropriate Right Hip Skin: No Ecchymosis, No soft tissue swelling and No Erythema Homans Sign: No HIP: sensation intact to light touch throughout 5 out of 5 plantar flexion dorsiflexion strength Hip rotation causes significant pain he has significantly decreased internal and external rotation on the right Supplemental Info 06/21/2021 CT right hip right hip osteoarthritis 04/12/2021 x-ray left hip: Status post total hip arthroplasty with good interfaces and positioning no concern, right hip shows advanced hip arthrosis Coding Level of Care Code Off vis,est,level 3 Diagnoses Degenerative joint disease of right hip M16.11 Osteoarthritis type: primary Assessment and Plan Assessment and Plan (1) Degenerative joint disease of right hip: Status: Acute Qualifiers: Osteoarthritis type: primary Qualified Code(s): M16.11 - Unilateral primary osteoarthritis, right hip Plan - Dr. Teddy Adrian, DO: Obtained X-rays of patient's right hip. Personally reviewed x-rays. There is no obvious fracture, dislocation, or lucency noted. Patient educated that he does have OA of the right hip. Discussed possibility that some of his pain may be coming from his back he understands this. his treatment options are do nothing or PT or TANNER. Risks, benefits and alternatives of surgery reviewed including but not limited to bleeding, infection, nerve, artery and/or tissue damage, fracture, VTE, leg length discrepancy, dislocation, need for hip precautions, continued pain and expected post-operative course. His surgery is scheduled for 07/06/2021. Surgery consent signed today. He did have anxiety and an elevated BP the day of his procedure prior to the cervical fusion, the anesthesiologist gave him something to help calm him down last time. He also wishes to have his IVs not in his hands. His insurance informed him last time that they would not cover the eliquis but they will cover Rivaroxaban. We will obtain clearances again and proceed with right TANNER , he did fine with out patient surgery last time so we will set it up this way again. Follow up 2 weeks post op or sooner if pain, swelling, numbness or associated symptoms, or concerns develop. All questions answered. Patient in agreement of plan. 06/28/21 1013<Electronically signed by Teddy Adrian DO>Date Teddy Walkerigner Signature:Date (if applicable) I have re-examined the patient. There are no clinical changes since date of exam
[2021-07-06] MEDS: dexAMETHasone 10 MG/ML Vial IV (08:00)
--- NOTE | 2021-07-06 09:58 | DCINST_ITS ---
Discharge Instructions Dressing / Incision Additional Dressing/Incision Instructions:: Do not shower 72hrs. Begin daily showering warm water antibacterial soap postop day #3( 72hrs Post-operatively) and then daily. Leave the dressing on for 72 hours postoperatively then may remove prior to first shower and change dressing daily after this until no drainage for 2 consecutive days then may leave open to air. Follow hip precautions that were reviewed in hospital. Wear compression stockings, may remove at night. Start physical therapy as directed in hospital. Follow prescriptions instructions do not take any other pain medication or differ dosing without consulting your physician. Do not take oral NSAIDs while on blo od thinner . May begin aspirin day after surgery hold Plavix and resume day after last Xarelto dose ,call Dr. Adrian's office with any concerns. Follow Up Care Please Follow Up With: Teddy Adrian DO When: 2 weeks Test Results: Test results from this visit will be discussed in further detail at your follow-up appointment, if applicable. Discharge Plan Admission Attending Provider: Teddy Adrian Primary Care Provider: Abundio Kilgore Discharge Orders/Prescriptions Prescriptions: New acetaminophen 500 mg Tablet 1,000 mg PO Q6H PRN (Reason: pain) Qty: 90 RF: 0 oxycodone 5 mg Tablet 5 - 10 mg PO Q4H PRN PRN (Reason: Pain Score 4-10/10) 7 Days Qty: 60 RF: 0 Xarelto 10 mg tablet 10 mg PO DAILY Qty: 21 RF: 0 Continued pantoprazole 40 mg tablet,delayed release (DR/EC) 40 mg PO QHS RF: 0 Cyclosporine in Klarity 0.1-0.25 % drops 1 drp OPHTHALMIC DAILY RF: 0 atorvastatin 80 mg tablet 80 mg PO DAILY RF: 0 Otezla 30 mg tablet 30 mg PO BID RF: 0 lisinopril 20 MG tablet 20 mg PO DAILY RF: 0 aspirin 81 MG tablet,chewable 81 mg PO DAILY@0800 RF: 0 duloxetine 30 MG capsule,delayed release(DR/EC) 30 mg PO DAILY RF: 0 duloxetine 60 MG capsule,delayed release(DR/EC) 60 mg PO DAILY RF: 0 amlodipine 2.5 mg tablet 2.5 mg PO DAILY RF: 0 nebivolol 2.5 mg tablet 2.5 mg PO DAILY RF: 0 Discontinued acetaminophen [Tylenol Extra Strength] 500 mg tablet 1,000 mg PO BID RF: 0 clopidogrel [Plavix] 75 mg tablet 75 mg PO DAILY RF: 0 Referrals / Follow Up: Abundio Kilgore DO [Primary Care Provider] - Disposition Disposition (needs filled in before D/C Order can be placed): Home, Self Care
--- NOTE | 2021-07-06 10:04 | OP.PCM_ITS ---
Report of Operation Date of Procedure: 07/06/21 Description of Surgical Findings:: Preoperative diagnosis: Right hip DJD Postoperative diagnosis: Same Procedure: CT-guided Makoplasty assisted right total hip arthroplasty Implants: [employer] Accolade II stem size 4, 127 degree neck angle 0 neck length 56 mm Trident II acetabular shell with 25 mm cancellous screw 36 mm ceramic head Anesthesia: Spinal EBL: 150 cc Complications: None Condition: Stable to PACU Indication for procedure: This is a 56-year-old male who has had long-standing arthrosis of the hip who has failed conservative treatment and wished to undergo total hip arthroplasty. We did discuss operative versus nonoperative intervention including risks of bleeding, infection , nerve artery tissue damage, need for further surgery, fracture, leg length discrepancy dislocation blood clot and need for postoperative physical therapy and postoperative expectations. An informed consent was signed. Procedure: Patient was met in the preoperative holding area once again the operative extremity was identified by both patient and physician and was marked. Patient was met by anesthesia . Anesthesia was started. patient was then positioned in the lateral decubitus position on a well-padded pegboard with an axillary roll. All bony prominences were checked and padded. The patient was prepped and draped in the usual sterile fashion. A timeout was called to ensure the proper patient procedure and extremity were being contemplated. Anatomic landmarks were palpated and marked for a standard posterior lateral approach. Prior to this the ASIS was palpated and 3 fingerbreadths proximal to this 3 pins were placed at a 45 degree angle into the iliac crest with good purchase, stab incisions were made with a 15 blade into the skin prior to placement. The Makoplasty array was then secured. A 10 blade scalpel was used to make a posterior incision through the skin and subcutaneous tissue. retractors were used and electrocautery was used to maintain meticulous hemostasis and dissect full-thickness flaps until the gluteal fascia was reached. The gluteal fascia was incised in line with the gluteal fibers. The bursal tissue was then freed from the underside and a Charnley retractor was placed. The femoral trochanteric checkpoint was placed and leg length was assessed using the trochanteric checkpoint and an EKG lead that was placed on the knee prior to prepping the leg .the fat pad was then elevated off of the external rotators with electrocautery and the external rotators were dissected off of the greater trochanter including the piriformis and were tagged with #1 Ethibond for later repair. The joint capsule opened with posterior trapdoor technique. The hip was surgically dislocated. The measurement on the preoperative CT from the top of the lesser trochanter to the femoral neck cut was marked Hohmann was placed around the lesser trochanter. A neck cutting guide was used to keely the neck with a Bovie and an oscillating saw was used complete the femoral neck cut. The femoral head was then removed and sized. We then turned our attention to the acetabulum. A Bovie was used to make a perforation in the anterior joint capsule and a Lozoya retractor was placed this was repeated in the 6 o'clock position and a wide julienne was placed there. With a long handled knife the labral and pulvinar tissue were removed. We then registered the acetabulum with the pointing array and confirmed our landmarks. Once the socket was thoroughly prepared and labral tissue and pulvinar was removed we single reamed with the robotic arm. We then used the robotic arm to position the acetabular implant and impacted it into place under robotic guidance. We then proceeded to place a posterior superior screw by drilling first measuring and inserting the screw. We then inserted a trial liner. And turned our attention back to the femur at this point a femoral elevator was used. As well as a pointed wide Hohmann around the lesser trochanter and a Hohmann to help retract the gluteus medius. A box chisel was used to remove excess lateral neck followed by a canal finder and a lateralizing reamer. This was followed by sequential broaches. Attention was made of the version within the canal based on preoperative templating. Once the final broach was seated we then trialed reduced the hip it was determined that a 127 degree neck angle with a 0 neck length was the appropriate size. We then checked stability with shuck testing as well as flexion and internal rotation. then proceeded with hip extension and checked leg lengths at the knees and heels as well as with the trochanteric checkpoint and knee EKG lead. At this point trials were removed. A liner was inserted to the cup. The femoral stem was inserted. We re-trialed and then proceeded to impact the femoral head onto the Nayan taper. We then surgically reduce the hip check stability again and leg lengths and were satisfied. Betadine rinse was allowed to sit for 5 minutes while everyone changed their gloves. Thorough irrigation was performed. Followed by closure of the external rotators with #2 FiberWire followed by closure of gluteal fascia with #1 Ethibond. 0 Vicryl fat stitches and 2-0 Vicryl subcutaneous stitches and terri in the skin. A pulls were placed in the pin sites over the iliac crest with Xeroform 4 x 4 and OpSite. dressing was applied to incisional area with Mepilex Ag and an abduction pillow was placed. Patient tolerated the procedure well there was no intraoperative complications all counts were correct and the patient was brought back to the PACU in stable condition
--- NOTE | 2021-07-06 10:30 | RAD_ITS ---
STUDY: X-RAY - PELVIS AND RIGHT HIP REASON FOR EXAM: Male, 56 years old. Post op pacu -- in PACU TECHNIQUE: 2 views of the pelvis and hip. COMPARISON: None. FINDINGS: The patient is status post right total hip replacement. There is good alignment. RAD/Hip Min 2 Views (Portable) IMPRESSION: Status post right total hip replacement. There is good alignment. Electronically Signed: Jairo Alvarez MD at 10:51 EST , Service support ,
--- NOTE | 2021-07-06 11:41 | SUR.PHASEI ---
RIGHT HIP AREA WHERE ICE LEFT A MELONIE IS ONLY JUST RED AT THIS POINT AND DOES NOT HAVE ANY WHITE AREAS. IT LOOKS BETTER CURRENTLY. A BLANKET IS BETWEEN ICE AND LEG.
[2021-07-06] MEDS: Clindamycin 900 MG/50 ML BAG 75 MG IV (13:59)
[2021-07-06] MEDS: oxyCODONE 5 MG Tablet PO (14:15)
--- NOTE | 2021-07-06 14:22 | SUR.PHASEII ---
STOOD AT BEDSIDE, MARCHED IN PLACE, VOIDED IN URINAL AFTER BEING INCONTINENT URINE PREVIOUSLY. WILL CALL P.T. FOR BEDSIDE EVAL
== END 2021-07-06 16:30 | disposition home or self-care (01) ==
LOC: SDC 05:30 → AC 05:31
PROVIDERS: PCP Family Medicine; Referring Provider Orthopaedic Surgery; Visit Provider Orthopaedic Surgery
PROC: 8E0Y0CZ Robotic Assisted Procedure of Lower Extremity, Open Approach (ICD-10-PCS; CPT 27130; principal; 2021-07-06 07:30)
DX: M16.11 Unilateral primary osteoarthritis, right hip (principal); F41.9 Anxiety disorder, unspecified; I25.10 Atherosclerotic heart disease of native coronary artery without angina pectoris; I10 Essential (primary) hypertension; E78.2 Mixed hyperlipidemia; E66.9 Obesity, unspecified; G47.30 Sleep apnea, unspecified; K21.9 Gastro-esophageal reflux disease without esophagitis; Z87.891 Personal history of nicotine dependence; Z79.899 Other long term (current) drug therapy; Z79.02 Long term (current) use of antithrombotics/antiplatelets; Z68.29 Body mass index [BMI] 29.0-29.9, adult
CPT/HCPCS: 01214; 27130; 36415; 73502; 82962; 82985; 85610; 85730; 86850; 86900; 86901; 87081; 88305; 88311; 97161; C1776; J7040; J7120; J2405

== ENCOUNTER → 2021-07-20 13:02 | Outpatient (CLI) | payer OTHER, SELFPAY ==
[2018-11-07 07:32] VITALS: BMI 31.7
[2021-07-20 15:41] LABS: Ferritin 302 ng/mL (26-388); Iron 99 ug/dL (65-175)
[2021-07-20 15:46] LABS: Hemoglobin A1c 5.6 % (3.8-5.6)
== END ==
PROVIDERS: PCP Family Medicine; Referring Provider Family Medicine; Visit Provider Family Medicine
DX: R73.01 Impaired fasting glucose (principal); E83.119 Hemochromatosis, unspecified
CPT/HCPCS: 36415; 82728; 83036; 83540

== ENCOUNTER 2021-07-29 11:00 | Outpatient (RCR) | payer OTHER, SELFPAY ==
[2018-11-07 07:32] VITALS: BMI 31.7
--- NOTE | 2021-07-08 11:56 | HP.PTEVAL_ITS ---
Patient's Visit Information STEFANIE CARLSON is a 56 year old M referred to Physical Therapy by Dr. Teddy Adrian DO with a diagnosis of R TANNER. Date of Evaluation: 07/08/21 Physical Therapist: Ahmet Larsen DPT - Visit Plan Frequency: 2x /Week Duration: 4 Weeks Plan: POSTERIOR HIP PRECAUTIONS. Improve hip ROM with focus on flexion/extension. Once tolerable begin strengthening of hip and improved weightbearing during gait. - Subjective Pt presents to PT with severe pain in hip from total hip arthroplasty performed 2 days ago. He states he is feeling very nauseous. Pt has had 6 surgeries in the past year. Pt is most comfortable when seated and reclining, but states he is experiencing significant pain and is taking pain meds and icing to obtain some relief. Pt is sleeping in his recliner, and states he is getting up 3x per night to go to the bathroom. Pt has 3 stairs to get into the house, and [place] so there are no additional stairs necessary. Pt denies numbness and tingling down leg. Patient reports he has a posterior incision and is to remove bandage 07/09. Pt has been performing HEP of ankle pumps, straight leg raises, glut sets, quad sets, and heel slides. Pt reports follow up with Doctor should be around . - Pain Right Hip Pain Intensity (Out of 10): 9 Pain Intensity Range: 6 - Objective ROM: R hip 0-20-30 degrees hip flexion, too painful to attempt ER at this point; L hip flexion 2-0-120 degrees. STRENGTH: not assessed due to post surgical pain. GAIT: antalgic gait w/ FWW using step to gait pattern. Pt. limited with general mobility, ROM due to pain and nausea today. Cont. to progress as tolerated with ROM, functional mobility tolerance, gait progression. - Balance/Special Test Scores Lower Extremity Functional Score: 1 TUG Test Time Seconds: 72 WOMAC Total Score: 96 WOMAC Percentatge: 0 - Goals Goal 1:: Pt will be independent with HEP. Goal Time Frame: 2-4 Weeks Goal 2:: STG: Pt will improve hip ROM extension/flexion to 10-0-90. Goal Time Frame: 4-6 Weeks Goal 3:: LTG: Pt will report ambulation with 0-2/10 pain in R hip. Goal Time Frame: 4-6 Weeks Goal 4:: LTG: Pt will report improved ability to sleep throughout the night only getting up 0-1x per night. Goal Time Frame: 4-6 Weeks - Rehabilitation Potential Physical Therapy Diagnosis: R Hip pain, Limited R hip ROM, R hip weakness Rehabilitation Potential: Good - Anticipated Interventions Patient/Client Instruction: Educate patient on: Condition, Plan of Care For the Purpose of:: To decrease pain, To decrease swelling/inflammation, To increase ROM, To improve nutrient delivery to tissue, To improve muscle performance and motor function, To improve ability to perform ADL's, To increase tolerance to activity/condition/position, To improve performance and independence with ADL's, To improve ability of physical actions for home/community/work/leisure, To improve gait and locomotor functions, To improve health of tissue, To decrease soft tissue restriction, To increase flexibility/ROM, To improve endurance, To improve health and function, To improv e self management, To improve ability to perform tasks related to life management, To improve tolerance to ADL's Therapeutic Exercise to Include: Strength training, Flexibilty training, Passive ROM, Active ROM For the Purpose of:: To decrease pain, To decrease swelling/inflammation, To increase ROM, To improve nutrient delivery to tissue, To improve muscle performance and motor function, To improve ability to perform ADL's, To increase tolerance to activity/condition/position, To improve performance and independence with ADL's, To improve ability of physical actions for home/community/work/leisure, To improve gait and locomotor functions, To improve health of tissue, To decrease soft tissue restriction, To increase flexibility/ROM, To improve endurance, To improve safety with gait, To assume or resume ADL's, To reduce risk of recurrence, To improve health and function, To improve self management, To improve ability to perform tasks related to life management, To improve tolerance to ADL's Manual Therapy Techniques to Include: Mobilization, Soft tissue mobilization For the Purpose of:: To decrease pain, To increase ROM, To improve muscle performance and motor function, To improve gait and locomotor functions, To increase flexibility/ROM, To improve health and function TENS: Yes Cryotherapy (ice pack, ice massage): Yes For the Purpose of:: To decrease pain, To decrease swelling/inflammation, To increase ROM, To improve muscle performance and motor function, To improve health of tissue, To decrease soft tissue restriction, To increase flexibility/ROM, To improve self management Thank you for the opportunity to evaluate your patient. For Medicare and Medicare HMO plans, please review the plan of care and approve it. It will need to be FAXED BACK to us at [phone] for Medicare purposes. For Medicare only, by signing this I certify the plan of care. Please let me know if there are questions or concerns regarding this plan of care. Physician Signature: Date:
--- NOTE | 2021-07-29 11:56 | HP.PTREVAL ---
Dr. Teddy Adrian, DO, It has been my pleasure to treat STEFANIE CARLSON over the last 5 visits for R TANNER. Please see the progress note below for an update on the physical therapy plan of care! Subjective: Pt. reports overall doing well. He is still having some trouble sleeping throughout the night, but is improving. He arrives today walking with cane with reports of no symptoms. Pt. to see physician Objective/Function: 6MWT: 1337feet without AD. GAIT: Pt. does have decreased left step length, decreased R stance time. He reports mild lateral hip soreness. Similar with cane and without. TU.38sec. MMT: Pt. has 4+/5 strength throughout hip flexion, ext, add. 4/5 with abd and ER. STAIRS: normal reciprocal pattern with 2 HR. no pain noted. He has done very well. His only issue is a slight decreased R stance time, resulting in decreased L step length. He is to work on this for the next two weeks. Plan Plan: Pt. to complete exercises on his own at this point in time. I will leave the case open until following up with physician. Balance/Gait/Functional tests - Balance/Special Test Scores Lower Extremity Functional Score: 54 TUG Test Time Seconds: 72 Tug Test: >30sec.=impaired mobility WOMAC Total Score: 16 WOMAC Percentage: 83.3400 Goals Goal 1:: Pt will be independent with HEP. Goal Time Frame: 2-4 Weeks Goal Progress: Goal Met Goal 2:: STG: Pt will improve hip ROM extension/flexion to 10-0-90. Goal Time Frame: 4-6 Weeks Goal Progress: Goal Met Goal 3:: LTG: Pt will report ambulation with 0-2/10 pain in R hip. Goal Time Frame: 4-6 Weeks Goal Progress: Goal Met Goal 4:: LTG: Pt will report improved ability to sleep throughout the night only getting up 0-1x per night. Goal Time Frame: 4-6 Weeks Goal Progress: Progressing Anticipated Interventions Patient/Client Instruction: Educate patient on: Condition, Plan of Care For the Purpose of:: To decrease pain, To decrease swelling/inflammation, To increase ROM, To improve nutrient delivery to tissue, To improve muscle performance and motor function, To improve ability to perform ADL's, To increase tolerance to activity/condition/position, To improve performance and independence with ADL's, To improve ability of physical actions for home/community/work/leisure, To improve gait and locomotor functions, To improve health of tissue, To decrease soft tissue restriction, To increase flexibility/ROM, To improve endurance, To improve health and function, To improve self management, To improve ability to perform tasks related to life management, To improve tolerance to ADL's Therapeutic Exercise to Include: Strength training, Flexibilty training, Passive ROM, Active ROM For the Purpose of:: To decrease pain, To decrease swelling/inflammation, To increase ROM, To improve nutrient delivery to tissue, To improve muscle performance and motor function, To improve ability to perform ADL's, To increase tolerance to activity/condition/position, To improve performance and independence with ADL's, To improve ability of physical actions for home/community/work/leisure, To improve gait and locomotor functions, To improve health of tissue, To decrease soft tissue restriction, To increase flexibility/ROM, To improve endurance, To improve safety with gait, To assume or resume ADL's, To reduce risk of recurrence, To improve health and function, To improve self management, To improve ability to perform tasks related to life management, To improve tolerance to ADL's Manual Therapy Techniques to Include: Mobilization, Soft tissue mobilization For the Purpose of:: To decrease pain, To increase ROM, To improve muscle performance and motor function, To improve gait and locomotor functions, To increase flexibility/ROM, To improve health and function TENS: Yes Cryotherapy (ice pack, ice massage): Yes For the Purpose of:: To decrease pain, To decrease swelling/inflammation, To increase ROM, To improve muscle performance and motor function, To improve health of tissue, To decrease soft tissue restriction, To increase flexibility/ROM, To improve self management Please do not hesitate to contact me at [phone] by phone or if you have questions or concerns regarding this new plan of care! Sincerely, Ahmet Larsen DPT
== END 2021-07-29 19:00 | disposition home or self-care (01) ==
LOC: PT 11:00
PROVIDERS: PCP Family Medicine; Referring Provider Orthopaedic Surgery; Visit Provider Orthopaedic Surgery
DX: Z47.1 Aftercare following joint replacement surgery (principal); Z96.641 Presence of right artificial hip joint
CPT/HCPCS: 97110; 97161

== ENCOUNTER → 2022-04-30 | Outpatient (CLI) | payer OTHER, SELFPAY ==
[2018-11-07 07:32] VITALS: BMI 31.7
[2022-04-30 10:16] LABS: AST(SGOT) 43 U/L (15-37); Alanine Aminotransfer ALT/SGPT 77 U/L (16-61); Albumin, Serum 3.8 g/dL (3.2-5.0); Alkaline Phosphatase 85 U/L (45-117); Bilirubin, Direct 0.13 mg/dL (0.00-0.30); Cholesterol 155 mg/dL (200); Globulin 3.2 g/dL (2.2-4.2); High Density Lipoprotein 42 mg/dL; Triglycerides 162 mg/dL; Very Low Density Lipoprotein 32 mg/dL (5-40)
== END | disposition home or self-care (01) ==
LOC: LAB 09:30
PROVIDERS: PCP Family Medicine; Referring Provider Internal Medicine Cardiovascular Disease; Visit Provider Internal Medicine Cardiovascular Disease
DX: E78.2 Mixed hyperlipidemia (principal); I25.10 Atherosclerotic heart disease of native coronary artery without angina pectoris
CPT/HCPCS: 36415; 80061; 80076

== ENCOUNTER → 2022-05-30 | Outpatient (CLI) | payer OTHER, SELFPAY ==
[2018-11-07 07:32] VITALS: BMI 31.7
[2022-05-30 17:51] LABS: Absolute Lymphocyte Count 2.32 X10^3/uL (0.83-4.51); Absolute Neutrophil Count 2.8 X10^3/uL (2.0-7.7); Basophil# 0.03 X10^3/uL; Basophil% 0.5 % (0-1); Eosinophils% 1.7 % (0-5); Hematocrit 52.8 % (40-54); Hemoglobin 18.5 g/dL (13.0-16.5); Lymphocyte # 2.32 X10^3/ul (0.83-4.51); Lymphocyte % 39.7 % (19-41); Mean Corpuscular Hgb 31.8 pg (27.0-32.0); Mean Corpuscular Volume 90.7 fL (80-94); Mean Platelet Vol. 10.1 fl (6.2-12.0); Monocyte# 0.56 X10^3/uL; Monocyte% 9.6 % (0-10); NRBC Flagged by Analyzer 0 % (0-5); Neutrophil # 2.82 X10^3/uL (2.7-7.7); Neutrophil % 48.3 % (47-70); Platelet Count 202 K/mm3 (150-450); RBC Distribution Width CV 11.9 % (11.6-14.6); RBC Distribution Width SD 39.1 fl (35.1-43.9); Red Blood Count 5.82 M/mm3 (4.6-6.2); White Blood Count 5.8 K/mm3 (4.4-11.0)
[2022-05-30 17:56] LABS: Differential Indicated SCAN CRITERIA MET
[2022-05-30 18:30] LABS: Platelet Estimate ADEQUATE (ADEQ); Red Cell Morphology NORM C+C NORMAL (NORM C&C)
[2022-05-30 19:32] LABS: Anion Gap 8 (5-15); BUN 15 mg/dL (7-18); BUN/Creat Ratio 13.9 RATIO (10-20); Calcium,Total 8.8 mg/dL (8.5-10.1); Chloride 104 mmol/L (98-107); Creatinine, Serum 1.08 mg/dL (0.70-1.30); EST Glomerular Filtration Rate 74 mL/min (>60); Est Glom Filt Rate - Afr Amer 90 mL/min (>60); Ferritin 38 ng/mL (26-388); Glucose 121 mg/dL (74-106); Iron 164 ug/dL (65-175); PSA,Total - Annual Screen 1.99 ng/mL (0.00-4.00); Potassium 3.8 mmol/L (3.5-5.1); Sodium Level 138 mmol/L (136-145)
[2022-06-01 09:45] LABS: Pathologist Review Reviewed
== END | disposition home or self-care (01) ==
LOC: BFHLAB 14:18
PROVIDERS: PCP Family Medicine; Visit Provider Family Medicine
DX: E83.119 Hemochromatosis, unspecified (principal); I10 Essential (primary) hypertension; Z12.5 Encounter for screening for malignant neoplasm of prostate
CPT/HCPCS: 36415; 80048; 82728; 83540; 84153; 85025; G0103

== ENCOUNTER → 2022-10-21 | Outpatient (CLI) | payer OTHER, SELFPAY ==
[2022-06-28 11:14] VITALS: BMI 31.7
--- NOTE | 2022-10-21 15:00 | RAD_ITS ---
INDICATION: PAIN EXAMINATION/TECHNIQUE: X-RAY - XR Sacrum/Coccyx Min 2 Views COMPARISON: 04/12/2021 FINDINGS: SACRUM/COCCYX: No displaced fracture, destructive or sclerotic lesions. Note that overlapping bowel shadows may however obscure fine detail in the frontal view. SACRO-ILIAC JOINTS: The articular structures are unremarkable. SOFT TISSUES: No soft tissue swelling or gas. RAD/Sacrum-Coccyx min 2 Views IMPRESSION: No acute bony abnormality. Electronically Signed: Jose Beard MD at 20:37 EDT ,
== END | disposition home or self-care (01) ==
LOC: MTRAD 14:57
PROVIDERS: PCP Family Medicine; Referring Provider Family Medicine; Visit Provider Family Medicine
DX: M53.3 Sacrococcygeal disorders, not elsewhere classified (principal)
CPT/HCPCS: 72220

== ENCOUNTER → 2022-12-17 | Outpatient (CLI) | payer OTHER, SELFPAY ==
[2022-06-28 11:14] VITALS: BMI 31.7
[2022-12-17 09:22] LABS: AST(SGOT) 53 U/L (15-37); Alanine Aminotransfer ALT/SGPT 114 U/L (16-61); Albumin, Serum 3.6 g/dL (3.2-5.0); Alkaline Phosphatase 87 U/L (45-117); Bilirubin, Direct 0.05 mg/dL (0.00-0.30); Cholesterol 156 mg/dL (200); Globulin 3.2 g/dL (2.2-4.2); High Density Lipoprotein 32 mg/dL; Protein, Total 6.8 g/dL (6.4-8.2); Triglycerides 253 mg/dL; Very Low Density Lipoprotein 51 mg/dL (5-40)
== END | disposition home or self-care (01) ==
LOC: LAB 08:38
PROVIDERS: PCP Family Medicine; Referring Provider Nurse Practitioner Gerontology; Visit Provider Nurse Practitioner Gerontology
DX: E78.2 Mixed hyperlipidemia (principal)
CPT/HCPCS: 36415; 80061; 80076

== ENCOUNTER → 2023-01-27 | Outpatient (CLI) | payer OTHER, SELFPAY ==
[2022-06-28 11:14] VITALS: BMI 31.7
[2023-01-27 08:31] LABS: ALB/GLOB Ratio 1.1 RATIO (0.9-2.4); AST(SGOT) 31 U/L (15-37); Alanine Aminotransfer ALT/SGPT 67 U/L (16-61); Albumin, Serum 3.6 g/dL (3.2-5.0); Alkaline Phosphatase 76 U/L (45-117); Anion Gap 4 (5-15); BUN 15 mg/dL (7-18); BUN/Creat Ratio 14.4 RATIO (10-20); Calcium,Total 8.8 mg/dL (8.5-10.1); Chloride 105 mmol/L (98-107); Creatinine, Serum 1.04 mg/dL (0.70-1.30); EST Glomerular Filtration Rate 77 mL/min (>60); Est Glom Filt Rate - Afr Amer 94 mL/min (>60); Globulin 3.3 g/dL (2.2-4.2); Glucose 133 mg/dL (74-106); Potassium 4.3 mmol/L (3.5-5.1); Protein, Total 6.9 g/dL (6.4-8.2); Sodium Level 137 mmol/L (136-145)
[2023-01-27 08:42] LABS: Bilirubin, Direct 0.13 mg/dL (0.00-0.30); Cholesterol 284 mg/dL (200); High Density Lipoprotein 30 mg/dL; Triglycerides 413 mg/dL
== END | disposition home or self-care (01) ==
PROVIDERS: Internal Medicine Cardiovascular Disease; PCP Family Medicine; Referring Provider Nurse Practitioner Gerontology; Visit Provider Nurse Practitioner Gerontology
DX: E78.2 Mixed hyperlipidemia (principal); R79.89 Other specified abnormal findings of blood chemistry; Z79.899 Other long term (current) drug therapy
CPT/HCPCS: 36415; 80053; 80061; 82248

== ENCOUNTER → 2023-02-20 | Outpatient (CLI) | payer OTHER, SELFPAY ==
[2022-06-28 11:14] VITALS: BMI 31.7
[2023-02-20 15:27] LABS: Hemoglobin A1c 5.8 % (3.8-5.6)
== END | disposition home or self-care (01) ==
LOC: MTLAB 12:58
PROVIDERS: PCP Family Medicine; Referring Provider Family Medicine; Visit Provider Family Medicine
DX: R73.01 Impaired fasting glucose (principal)
CPT/HCPCS: 36415; 83036

== ENCOUNTER → 2023-04-14 | Outpatient (CLI) | payer OTHER, SELFPAY ==
[2022-06-28 11:14] VITALS: BMI 31.7
[2023-04-14 11:34] LABS: AST(SGOT) 30 U/L (15-37); Alanine Aminotransfer ALT/SGPT 63 U/L (16-61); Albumin, Serum 3.9 g/dL (3.2-5.0); Alkaline Phosphatase 71 U/L (45-117); Bilirubin, Direct 0.24 mg/dL (0.00-0.30); Cholesterol 107 mg/dL (200); Globulin 2.9 g/dL (2.2-4.2); High Density Lipoprotein 40 mg/dL; Protein, Total 6.8 g/dL (6.4-8.2); Triglycerides 87 mg/dL; Very Low Density Lipoprotein 17 mg/dL (5-40)
== END | disposition home or self-care (01) ==
LOC: LAB 09:45
PROVIDERS: PCP Family Medicine; Referring Provider Nurse Practitioner Gerontology; Visit Provider Nurse Practitioner Gerontology
DX: E78.2 Mixed hyperlipidemia (principal)
CPT/HCPCS: 36415; 80061; 80076

== ENCOUNTER → 2023-09-29 | Outpatient (CLI) | payer OTHER, SELFPAY ==
[2022-06-28 11:14] VITALS: BMI 31.7
--- OUTSIDE RECORDS SUMMARY | 2023-09-29 08:01 | XMS RPT_ITS | CCD ---
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 (2 sources) Start: 10-30-2015 PROMISEB CREA as directed ANTISEBORRHEIC PRODUCTS, MISC. [id number] Emanuel Kelly MD ANTISEBORRHEIC PRODUCTS, MISC. (2 sources) Start: 10-30-2015 PROMISEB CREA as directed ANTISEBORRHEIC PRODUCTS, MISC. [id number] Emanuel Kelly MD ANTISEBORRHEIC PRODUCTS, MISC. (1 source) Start: 10-30-2015 PROMISEB CREA as directed ANTISEBORRHEIC PRODUCTS, MISC. [id number] Emanuel Kelly MD aspirin 81 mg delayed release oral tablet (10 sources) Platelet Aggregation Inhibitor, Nonsteroidal Anti-inflammatory Drug Start: 09-09-2011 take 1 tablet by mouth once daily ECOTRIN LOW STRENGTH 81 MG TBEC One tablet by mouth daily ASPIRIN [id number] Emanuel Kelly MD Problems Active Problems Problem Classification Problem Date Documented Da te Episodic/Chronic Coronary atherosclerosis and other heart disease (15 sources) Coronary arteriosclerosis; Translations: [Coronary atherosclerosis] Onset: 11-23-2010 11-23-2010 Chronic Disorders of lipid metabolism (5 sources) Hyperlipidemia; Translations: [Hyperlipidemia, unspecified] Onset: 11-23-2010 11-23-2010 Chronic Essential hypertension (5 sources) Hypertensive disorder; Translations: [Essential (primary) hypertension] Onset: 11-23-2010 11-23-2010 Chronic Other nutritional; endocrine; and metabolic disorders (5 sources) Body mass index (BMI) 30.0-30.9, adult; Translations: [Body mass index (BMI) 30.0-30.9, adult] Onset: 10-07-2016 10-07-2016 Chronic Unclassified (3 sources) Percutaneous transluminal coronary angioplasty ; Translations: [Coronary angioplasty status] Onset: 11-23-2010 11-23-2010 Unclassified (9 sources) Long-term drug therapy; Translations: [Long-term (current) use of other medications] Onset: 11-23-2010 07-28-2014 Past or Other Problems Problem Classification Problem Date Documented Da te Episodic/Chronic Nonspecific chest pain (5 sources) Chest discomfort; Translations: [Other chest pain] Onset: 04-12-2013 04-12-2013 Episodic Other acquired deformities (5 sources) Unequal leg length (acquired); Translations: [Unequal leg length (acquired)] Onset: 01-27-2014 01-27-2014 Episodic Other aftercare (6 sources) Other residential (current) drug therapy; Translations: [Long-term (current) use of other medications] Onset: 11-23-2010 11-23-2010 Episodic Other connective tissue disease (8 sources) Enthesopathy, unspecified; Translations: [Foot pain] Onset: 01-27-2014 01-27-2014 Episodic Other connective tissue disease (2 sources) Foot pain; Translations: [Pain in unspecified ankle and joints of unspecified foot] Onset: 01-27-2014 01-27-2014 Episodic Other nutritional; endocrine; and metabolic disorders (10 sources) Body mass index (BMI) 29.0-29.9, adult; Translations: [Body mass index (BMI) 29.0-29.9, adult] Onset: 10-31-2014 Resolved: 10-07-2016 10-07-2016 Episodic Results Test Name Value Interpretation Reference Range Facil ity Vital Signs Date Time Vital Sign Value Performing Clinician Mckay troncoso 04-21-2017 09:23-0400 BMI (Body Mass Index) 31.24 kg/m2 Livanbebeto Nicolez [facility] Work Phone: 04-21-2017 09:23-0400 BP Diastolic 82 mm[Hg] Saravanan [facility] Work Phone: 04-21-2017 09:23-0400 BP Systolic 138 mm[Hg] Saravanan [facility] Work Phone: 04-21-2017 09:23-0400 Height 180.34 cm Saravanan [facility] Work Phone: 04-21-2017 09:23-0400 Pulse (Heart Rate) 64 /min Saravanan [facility] Work Phone: 04-21-2017 09:23-0400 Respiratory Rate 18 /min Saravanan [facility] Work Phone: 04-21-2017 09:23-0400 Weight 101.61 kg Saravanan [facility] Work Phone: 04-21-2017 09:23-0400 Weight 101.6 kg Saravanan [facility] Work Phone: 10-07-2016 09:18-0500 BMI (Body Mass Index) 30.96 kg/m2 [facility] Work Phone: 10-07-2016 09:18-0500 BP Diastolic 82 mm[Hg] Emanuel Kelly MD [facility] Work Phone: 10-07-2016 09:18-0500 BP Systolic 130 mm[Hg] Emanuel Kelly MD [facility] Work Phone: 03-10-2017 09:18-0500 Pulse (Heart Rate) 68 /min [facility] Work Phone: 10-07-2016 09:18-0500 Respiratory Rate 16 /min Emanuel Kelly MD [facility] Work Phone: 10-07-2016 09:18-0500 Weight 100.7 kg Emanuel Kelly MD [facility] Work Phone: 04-29-2016 13:51-0400 BSA (Body Surface Area) 2.19 m2 Emanuel Kelly MD [facility] Work Phone: 05-23-2014 09:15-0400 Heart rate 54 /min Emanuel Kelly MD [facility] Work Phone: 10-01-2012 14:30-0500 Heart rate 410 ms Emanuel Kelly MD [facility] Work Phone: 09-09-2011 13:18-0500 Height 180.34 cm Emanuel Kelly MD [facility] Work Phone: Procedures Date Procedure Procedure Detail Performing Clinician Start: 07-11-2017 End: 08-03-2017 *Hepatic Function Panel Emanuel Kelly MD Start: 07-11-2017 End: 08-03-2017 Lipid 1996 panel - Serum or Plasma Emanuel Kelly MD Start: 04-21-2017 End: 04-21-2017 Follow Up Appt 6 months Emanuel Kelly MD Start: 04-21-2017 End: 04-21-2017 PFRosa Kelly MD Start: 04-21-2017 End: 04-21-2017 Dietary management education, guidance, and counseling Neftali Daily NP Start: 04-21-2017 End: 04-21-2017 Follow Up Appt 6 months Emanuel Kelly MD Start: 04-21-2017 End: 04-21-2017 PFRosa Kelly MD Start: 12-11-2016 End: 01-09-2017 *Hepatic Function Panel Emanuel Kelly MD Start: 12-11-2016 End: 01-09-2017 Lipid 1996 panel - Serum or Plasma Emanuel Kelly MD Start: 12-11-2016 End: 01-09-2017 *Hepatic Function Panel Emanuel Kelly MD Start: 12-11-2016 End: 01-09-2017 Lipid panel [AGGREGATE] Emanuel Kelly MD Start: 10-07-2016 End: 10-07-2016 Follow Up Appt 6 months Emanuel Kelly MD Start: 10-07-2016 End: 10-07-2016 PFM Emanuel Kelly MD Start: 10-07-2016 End: 10-07-2016 Follow Up Appt 6 months Emanuel Kelly MD Start: 10-07-2016 End: 10-07-2016 PFM Emanuel Kelly MD Start: 05-23-2016 End: 06-13-2016 *Hepatic Function Panel Emanuel Kelly MD Start: 05-23-2016 End: 06-13-2016 Lipid 1996 panel - Serum or Plasma Emanuel Kelly MD Start: 05-23-2016 End: 06-13-2016 *Hepatic Function Panel Emanuel Kelly MD Start: 05-23-2016 End: 06-13-2016 Lipid panel [AGGREGATE] Emanuel Kelly MD Start: 04-29-2016 End: 06-13-2016 *Hepatic Function Panel Emanuel Kelly MD Start: 04-29-2016 End: 04-29-2016 Follow Up Appt 9 months Emanuel Kelly MD Start: 04-29-2016 End: 06-13-2016 Lipid 1996 panel - Serum or Plasma Emanuel Kelly MD Start: 04-29-2016 End: 04-29-2016 PFM Emanuel Kelly MD Start: 04-29-2016 End: 04-29-2016 Dietary management education, guidance, and counseling Emanuel Kelly MD Start: 04-29-2016 End: 06-13-2016 *Hepatic Function Panel Emanuel Kelly MD Start: 04-29-2016 End: 04-29-2016 Follow Up Appt 9 months Emanuel Kelly MD Start: 04-29-2016 End: 06-13-2016 Lipid panel [AGGREGATE] Emanuel Kelly MD Start: 04-29-2016 End: 04-29-2016 PFM Emanuel Kelly MD Start: 02-16-2016 End: 02-25-2016 *Hepatic Function Panel Emanuel Kelly MD Start: 02-16-2016 End: 02-25-2016 Lipid 1996 panel - Serum or Plasma Emanuel Kelly MD Start: 02-16-2016 End: 02-25-2016 *Hepatic Function Panel Emanuel Kelly MD Start: 02-16-2016 End: 02-25-2016 Lipid panel [AGGREGATE] Emanuel Kelly MD Start: 04-24-2015 End: 04-25-2015 Documentation of current medications Emanuel Kelly MD Start: 04-24-2015 End: 04-24-2015 Follow Up Appt 6 months Emanuel Kelly MD Start: 04-24-2015 End: 04-24-2015 PFM Emanuel Kelly MD Start: 04-24-2015 End: 04-25-2015 Documentation of current medications Emanuel Kelly MD Start: 04-24-2015 End: 04-24-2015 Follow Up Appt 6 months Emanuel Kelly MD Start: 04-24-2015 End: 04-24-2015 PFM Emanuel Kelly MD Start: 01-19-2015 End: 01-26-2015 *Hepatic Function Panel Emanuel Kelly MD Start: 01-19-2015 End: 01-26-2015 Lipid 1996 panel - Serum or Plasma Emanuel Kelly MD Start: 01-19-2015 End: 01-26-2015 *Hepatic Function Panel Emanuel Kelly MD Start: 01-19-2015 End: 01-26-2015 Lipid panel [AGGREGATE] Emanuel Kelly MD Start: 10-31-2014 End: 11-01-2014 Documentation of current medications Emanuel Kelly MD Start: 10-31-2014 End: 10-31-2014 Follow Up Appt 6 months Emanuel Kelly MD Start: 10-31-2014 End: 10-31-2014 PFM Emanuel Kelly MD Start: 10-31-2014 End: 11-01-2014 Documentation of current medications Emanuel Kelly MD Start: 10-31-2014 End: 10-31-2014 Follow Up Appt 6 months Emanuel Kelly MD Start: 10-31-2014 End: 10-31-2014 PFM Emanuel Kelly MD Start: 06-30-2014 End: 07-28-2014 *Hepatic Function Panel Emanuel Kelly MD Start: 06-30-2014 End: 07-28-2014 Lipid 1996 panel - Serum or Plasma Emanuel Kelly MD Start: 06-30-2014 End: 07-28-2014 *Hepatic Function Panel Emanuel Kelly MD Start: 06-30-2014 End: 07-28-2014 Lipid panel [AGGREGATE] Emanuel Kelly MD Start: 05-23-2014 End: 05-23-2014 Ecg routine ecg w/least 12 lds w/i&r Ratna Chance PA-C Work Phone: Start: 05-23-2014 End: 05-23-2014 Follow Up Appt 6 months Ratna godoy PA-C Work Phone: Start: 05-23-2014 End: 05-23-2014 PFM Ratna Chance PA-C Work Phone: Start: 05-23-2014 End: 05-23-2014 Electrocardiogram, complete Ratna Chance PA-C Work Phone: Start: 05-23-2014 End: 05-23-2014 Follow Up Appt 6 months Ratna godoy PA-C Work Phone: Start: 05-23-2014 End: 05-23-2014 PF Ratna Chance PA-C Work Phone: Start: 12-29-2013 End: 01-20-2014 *Hepatic Function Panel Emanuel Kelly MD Start: 12-29-2013 End: 01-20-2014 Lipid 1996 panel - Serum or Plasma Emanuel Kelly MD Start: 12-29-2013 End: 01-20-2014 *Hepatic Function Panel Emanuel Kelly MD Start: 12-29-2013 End: 01-20-2014 Lipid panel [AGGREGATE] Emanuel Kelly MD Start: 11-18-2013 End: 05-09-2014 Follow Up Appt 6 months Emanuel Kelly MD Start: 11-18-2013 End: 05-09-2014 MMM Emanuel Kelly MD Start: 11-18-2013 End: 05-09-2014 Follow Up Appt 6 months Emanuel Kelly MD Start: 11-18-2013 End: 05-09-2014 MMM Emanuel Kelly MD Start: 06-30-2013 End: 07-04-2013 *Hepatic Function Panel Emanuel Kelly MD Start: 06-30-2013 End: 07-04-2013 Lipid 1996 panel - Serum or Plasma Emanuel Kelly MD Start: 06-30-2013 End: 07-04-2013 *Hepatic Function Panel Emanuel Kelly MD Start: 06-30-2013 End: 07-04-2013 Lipid panel [AGGREGATE] Emanuel Kelly MD Start: 04-12-2013 End: 04-12-2013 Follow Up Appt 6 months Ratna godoy PA-C Work Phone: Start: 04-12-2013 End: 05-09-2014 Nuclear stress test -exercise Ratna Chance PA-C Work Phone: Start: 04-12-2013 End: 04-12-2013 PFM Ratna Chance PA-C Work Phone: Start: 04-12-2013 End: 04-12-2013 Follow Up Appt 6 months Ratna godoy PA-C Work Phone: Start: 04-12-2013 End: 05-09-2014 Nuclear stress test -exercise Ratna Chance PA-C Work Phone: Start: 04-12-2013 End: 04-12-2013 PFM Ratna Chance PA-C Work Phone: Start: 10-01-2012 End: 01-29-2013 *Hepatic Function Panel Emanuel Kelly MD Start: 10-01-2012 End: 01-29-2013 Ecg routine ecg w/least 12 lds w/i&r Emanuel Kelly MD Start: 10-01-2012 End: 04-02-2013 Follow Up Appt 6 months Emanuel Kelly MD Start: 10-01-2012 End: 01-29-2013 Lipid 1996 panel - Serum or Plasma Emanuel Kelly MD Start: 10-01-2012 End: 04-02-2013 MMM Emanuel Kelly MD Start: 10-01-2012 End: 01-29-2013 *Hepatic Function Panel Emanuel Kelly MD Start: 10-01-2012 End: 01-29-2013 Electrocardiogram, complete Emanuel Kelly MD Start: 10-01-2012 End: 04-02-2013 Follow Up Appt 6 months Emanuel Kelly MD Start: 10-01-2012 End: 01-29-2013 Lipid panel [AGGREGATE] Emanuel Kelly MD Start: 10-01-2012 End: 04-02-2013 MMM Emanuel Kelly MD Start: 09-18-2012 End: 01-29-2013 *Hepatic Function Panel Emanuel Kelly MD Start: 09-18-2012 End: 01-29-2013 *Hepatic Function Panel Emanuel Kelly MD Start: 08-01-2012 End: 01-29-2013 *Hepatic Function Panel Emanuel Kelly MD Start: 08-01-2012 End: 01-29-2013 Lipid 1996 panel - Serum or Plasma Emanuel Kelly MD Start: 08-01-2012 End: 01-29-2013 *Hepatic Function Panel Emanuel Kelly MD Start: 08-01-2012 End: 01-29-2013 Lipid panel [AGGREGATE] Emanuel Kelly MD Start: 03-26-2012 End: 01-29-2013 *Hepatic Function Panel Emanuel Kelly MD Start: 03-26-2012 End: 03-26-2012 Follow Up Appt 6 months Emanuel Kelly MD Start: 03-26-2012 End: 01-29-2013 Lipid 1996 panel - Serum or Plasma Emanuel Kelly MD Start: 03-26-2012 End: 01-29-2013 *Hepatic Function Panel Emanuel Kelly MD Start: 03-26-2012 End: 03-26-2012 Follow Up Appt 6 months Emanuel Kelly MD Start: 03-26-2012 End: 01-29-2013 Lipid panel [AGGREGATE] Emanuel Kelly MD Start: 02-14-2012 End: 02-24-2012 *Hepatic Function Panel Emanuel Kelly MD Start: 02-14-2012 End: 02-24-2012 Lipid 1996 panel - Serum or Plasma Emanuel Kelly MD Start: 02-14-2012 End: 02-24-2012 *Hepatic Function Panel Emanuel Kelly MD Start: 02-14-2012 End: 02-24-2012 Lipid panel [AGGREGATE] Emanuel Kelly MD Start: 09-09-2011 End: 09-14-2011 Ecg routine ecg w/least 12 lds w/i&r Emanuel Kelly MD Start: 09-09-2011 End: 09-14-2011 Follow Up Appt 6 months Emanuel Kelly MD Start: 09-09-2011 End: 09-14-2011 Follow Up Appt Other Emanuel Kelly MD Start: 09-09-2011 End: 09-14-2011 Follow Up Appt 6 months Emanuel Kelly MD Start: 09-09-2011 End: 09-14-2011 Follow Up Appt Other Emanuel Kelly MD Start: 09-09-2011 End: 09-14-2011 Lipid panel [AGGREGATE] Emanuel Kelly MD Start: 11-23-2010 Percutaneous transluminal coronary angioplasty PERCUTANEOUS TRANSLUMINAL CORONARY ANGIOPLASTY, HX OF Neftali Daily NP Start: 11-23-2010 Percutaneous transluminal coronary angioplasty PERCUTANEOUS TRANSLUMINAL CORONARY ANGIOPLASTY, HX OF Emanuel Kelly MD Plan of Treatment Date Care Activity Detail Author Start: 10-02-2017 End: 10-02-2017 Appointment Appointment [facility] Work Phone: Start: 07-11-2017 End: 08-03-2017 *Hepatic Function Panel *Hepatic Function Panel [facility] Work Phone: Start: 07-11-2017 End: 08-03-2017 Lipid panel [AGGREGATE] *Lipid Profile CC PCP [facility] Work Phone: Start: 07-11-2017 End: 01-10-2017 *Hepatic Function Panel *Hepatic Function Panel [facility] Work Phone: Start: 07-11-2017 End: 01-10-2017 Lipid panel [AGGREGATE] *Lipid Profile CC PCP [facility] Work Phone: Start: 04-21-2017 End: 04-21-2017 *Hepatic Function Panel *Hepatic Function Panel [facility] Work Phone: Start: 04-21-2017 End: 04-21-2017 Follow Up Appt 6 months Follow Up Appt 6 months [facility] Work Phone: Start: 04-21-2017 End: 04-21-2017 Lipid panel [AGGREGATE] *Lipid Profile CC PCP [facility] Work Phone: Start: 04-21-2017 End: 04-21-2017 PFM PFM [facility] Work Phone: Start: 04-21-2017 End: 04-21-2017 Appointment Appointment [facility] Work Phone: Start: 04-21-2017 End: 04-21-2017 *Hepatic Function Panel *Hepatic Function Panel [facility] Work Phone: Start: 04-21-2017 End: 04-21-2017 Follow Up Appt 6 months Follow Up Appt 6 months [facility] Work Phone: Start: 04-21-2017 End: 04-21-2017 Lipid panel [AGGREGATE] *Lipid Profile CC PCP [facility] Work Phone: Start: 04-21-2017 End: 04-21-2017 PFM PFM [facility] Work Phone: Start: 12-11-2016 End: 01-09-2017 *Hepatic Function Panel *Hepatic Function Panel [facility] Work Phone: Start: 12-11-2016 End: 01-09-2017 Lipid panel [AGGREGATE] *Lipid Profile CC PCP [facility] Work Phone: Start: 12-11-2016 End: 01-09-2017 *Hepatic Function Panel *Hepatic Function Panel [facility] Work Phone: Start: 12-11-2016 End: 01-09-2017 Lipid panel [AGGREGATE] *Lipid Profile CC PCP [facility] Work Phone: Start: 10-07-2016 End: 10-07-2016 Follow Up Appt 6 months Follow Up Appt 6 months [facility] Work Phone: Start: 10-07-2016 End: 10-07-2016 PFM PFM [facility] Work Phone: Start: 10-07-2016 End: 10-07-2016 Follow Up Appt 6 months Follow Up Appt 6 months [facility] Work Phone: Start: 10-07-2016 End: 10-07-2016 PFM PFM [facility] Work Phone: Start: 05-23-2016 End: 06-13-2016 *Hepatic Function Panel *Hepatic Function Panel [facility] Work Phone: Start: 05-23-2016 End: 06-13-2016 Lipid panel [AGGREGATE] *Lipid Profile CC PCP [facility] Work Phone: Start: 05-23-2016 End: 06-13-2016 *Hepatic Function Panel *Hepatic Function Panel [facility] Work Phone: Start: 05-23-2016 End: 06-13-2016 Lipid panel [AGGREGATE] *Lipid Profile CC PCP [facility] Work Phone: Start: 04-29-2016 End: 06-13-2016 *Hepatic Function Panel *Hepatic Function Panel [facility] Work Phone: Start: 04-29-2016 End: 04-29-2016 Follow Up Appt 9 months Follow Up Appt 9 months [facility] Work Phone: Start: 04-29-2016 End: 06-13-2016 Lipid panel [AGGREGATE] *Lipid Profile CC PCP [facility] Work Phone: Start: 04-29-2016 End: 04-29-2016 PF PFM [facility] Work Phone: Start: 04-29-2016 End: 06-13-2016 *Hepatic Function Panel *Hepatic Function Panel [facility] Work Phone: Start: 04-29-2016 End: 04-29-2016 Follow Up Appt 9 months Follow Up Appt 9 months [facility] Work Phone: Start: 04-29-2016 End: 06-13-2016 Lipid panel [AGGREGATE] *Lipid Profile CC PCP [facility] Work Phone: Start: 04-29-2016 End: 04-29-2016 PFM PFM [facility] Work Phone: Start: 02-16-2016 End: 02-25-2016 *Hepatic Function Panel *Hepatic Function Panel [facility] Work Phone: Start: 02-16-2016 End: 02-25-2016 Lipid panel [AGGREGATE] *Lipid Profile CC PCP [facility] Work Phone: Start: 02-16-2016 End: 02-25-2016 *Hepatic Function Panel *Hepatic Function Panel [facility] Work Phone: Start: 02-16-2016 End: 02-25-2016 Lipid panel [AGGREGATE] *Lipid Profile CC PCP [facility] Work Phone: Start: 10-30-2015 End: 10-30-2015 Follow Up Appt 6 months Follow Up Appt 6 months [facility] Work Phone: Start: 10-30-2015 End: 10-30-2015 Follow Up Appt Other Follow Up Appt Other [facility] Work Phone: Start: 10-30-2015 End: 10-30-2015 PFM PFM [facility] Work Phone: Start: 10-30-2015 End: 10-30-2015 Follow Up Appt 6 months Follow Up Appt 6 months [facility] Work Phone: Start: 10-30-2015 End: 10-30-2015 Follow Up Appt Other Follow Up Appt Other [facility] Work Phone: Start: 10-30-2015 End: 10-30-2015 PFM PFM [facility] Work Phone: Start: 04-24-2015 End: 04-24-2015 Follow Up Appt 6 months Follow Up Appt 6 months [facility] Work Phone: Start: 04-24-2015 End: 04-24-2015 PFM PFM [facility] Work Phone: Start: 04-24-2015 End: 04-24-2015 Follow Up Appt 6 months Follow Up Appt 6 months [facility] Work Phone: Start: 04-24-2015 End: 04-24-2015 PFM PFM [facility] Work Phone: Start: 01-19-2015 End: 01-26-2015 *Hepatic Function Panel *Hepatic Function Panel [facility] Work Phone: Start: 01-19-2015 End: 01-26-2015 Lipid panel [AGGREGATE] *Lipid Profile CC PCP [facility] Work Phone: Start: 01-19-2015 End: 01-26-2015 *Hepatic Function Panel *Hepatic Function Panel [facility] Work Phone: Start: 01-19-2015 End: 01-26-2015 Lipid panel [AGGREGATE] *Lipid Profile CC PCP [facility] Work Phone: Start: 10-31-2014 End: 10-31-2014 Follow Up Appt 6 months Follow Up Appt 6 months [facility] Work Phone: Start: 10-31-2014 End: 10-31-2014 PFM PFM [facility] Work Phone: Start: 10-31-2014 End: 10-31-2014 Follow Up Appt 6 months Follow Up Appt 6 months [facility] Work Phone: Start: 10-31-2014 End: 10-31-2014 PFM PFM [facility] Work Phone: Start: 06-30-2014 End: 07-28-2014 *Hepatic Function Panel *Hepatic Function Panel [facility] Work Phone: Start: 06-30-2014 End: 07-28-2014 Lipid panel [AGGREGATE] *Lipid Profile CC PCP [facility] Work Phone: Start: 06-30-2014 End: 07-28-2014 *Hepatic Function Panel *Hepatic Function Panel [facility] Work Phone: Start: 06-30-2014 End: 07-28-2014 Lipid panel [AGGREGATE] *Lipid Profile CC PCP [facility] Work Phone: Start: 05-23-2014 End: 05-23-2014 Ecg routine ecg w/least 12 lds w/i&r EKG (In office) [facility] Work Phone: Start: 05-23-2014 End: 05-23-2014 Follow Up Appt 6 months Follow Up Appt 6 months [facility] Work Phone: Start: 05-23-2014 End: 05-23-2014 PFM PFM [facility] Work Phone: Start: 05-23-2014 End: 05-23-2014 Electrocardiogram, complete EKG (In office) [facility] Work Phone: Start: 05-23-2014 End: 05-23-2014 Follow Up Appt 6 months Follow Up Appt 6 months [facility] Work Phone: Start: 05-23-2014 End: 05-23-2014 PFM PFM [facility] Work Phone: Start: 12-29-2013 End: 01-20-2014 *Hepatic Function Panel *Hepatic Function Panel [facility] Work Phone: Start: 12-29-2013 End: 01-20-2014 Lipid panel [AGGREGATE] *Lipid Profile CC PCP [facility] Work Phone: Start: 12-29-2013 End: 01-20-2014 *Hepatic Function Panel *Hepatic Function Panel [facility] Work Phone: Start: 12-29-2013 End: 01-20-2014 Lipid panel [AGGREGATE] *Lipid Profile CC PCP [facility] Work Phone: Start: 11-18-2013 End: 05-09-2014 Follow Up Appt 6 months Follow Up Appt 6 months [facility] Work Phone: Start: 11-18-2013 End: 05-09-2014 MMM MMM [facility] Work Phone: Start: 11-18-2013 End: 05-09-2014 Follow Up Appt 6 months Follow Up Appt 6 months [facility] Work Phone: Start: 11-18-2013 End: 05-09-2014 MMM MMM [facility] Work Phone: Start: 06-30-2013 End: 07-04-2013 *Hepatic Function Panel *Hepatic Function Panel [facility] Work Phone: Start: 06-30-2013 End: 07-04-2013 Lipid panel [AGGREGATE] *Lipid Profile CC PCP [facility] Work Phone: Start: 06-30-2013 End: 07-04-2013 *Hepatic Function Panel *Hepatic Function Panel [facility] Work Phone: Start: 06-30-2013 End: 07-04-2013 Lipid panel [AGGREGATE] *Lipid Profile CC PCP [facility] Work Phone: Start: 04-12-2013 End: 04-12-2013 Follow Up Appt 6 months Follow Up Appt 6 months [facility] Work Phone: Start: 04-12-2013 End: 04-12-2013 Nuclear stress test -exercise Nuclear stress test -exercise [facility] Work Phone: Start: 04-12-2013 End: 04-12-2013 PFM PFM [facility] Work Phone: Start: 04-12-2013 End: 04-12-2013 Follow Up Appt 6 months Follow Up Appt 6 months [facility] Work Phone: Start: 04-12-2013 End: 04-12-2013 Nuclear stress test -exercise Nuclear stress test -exercise [facility] Work Phone: Start: 04-12-2013 End: 04-12-2013 PFM PF [facility] Work Phone: Start: 10-01-2012 End: 01-29-2013 *Hepatic Function Panel *Hepatic Function Panel [facility] Work Phone: Start: 10-01-2012 End: 01-29-2013 Ecg routine ecg w/least 12 lds w/i&r EKG (In office) [facility] Work Phone: Start: 10-01-2012 End: 04-02-2013 Follow Up Appt 6 months Follow Up Appt 6 months [facility] Work Phone: Start: 10-01-2012 End: 01-29-2013 Lipid panel [AGGREGATE] *Lipid Profile [facility] Work Phone: Start: 10-01-2012 End: 04-02-2013 MMM MMM [facility] Work Phone: Start: 10-01-2012 End: 01-29-2013 *Hepatic Function Panel *Hepatic Function Panel [facility] Work Phone: Start: 10-01-2012 End: 01-29-2013 Electrocardiogram, complete EKG (In office) [facility] Work Phone: Start: 10-01-2012 End: 04-02-2013 Follow Up Appt 6 months Follow Up Appt 6 months [facility] Work Phone: Start: 10-01-2012 End: 01-29-2013 Lipid panel [AGGREGATE] *Lipid Profile [facility] Work Phone: Start: 10-01-2012 End: 04-02-2013 MMM MMM [facility] Work Phone: Start: 09-18-2012 End: 01-29-2013 *Hepatic Function Panel *Hepatic Function Panel [facility] Work Phone: Start: 09-18-2012 End: 01-29-2013 *Hepatic Function Panel *Hepatic Function Panel [facility] Work Phone: Start: 08-01-2012 End: 01-29-2013 *Hepatic Function Panel *Hepatic Function Panel [facility] Work Phone: Start: 08-01-2012 End: 01-29-2013 Lipid panel [AGGREGATE] *Lipid Profile [facility] Work Phone: Start: 08-01-2012 End: 01-29-2013 *Hepatic Function Panel *Hepatic Function Panel [facility] Work Phone: Start: 08-01-2012 End: 01-29-2013 Lipid panel [AGGREGATE] *Lipid Profile [facility] Work Phone: Start: 03-26-2012 End: 01-29-2013 *Hepatic Function Panel *Hepatic Function Panel [facility] Work Phone: Start: 03-26-2012 End: 03-26-2012 Follow Up Appt 6 months Follow Up Appt 6 months [facility] Work Phone: Start: 03-26-2012 End: 01-29-2013 Lipid panel [AGGREGATE] *Lipid Profile [facility] Work Phone: Start: 03-26-2012 End: 01-29-2013 *Hepatic Function Panel *Hepatic Function Panel [facility] Work Phone: Start: 03-26-2012 End: 03-26-2012 Follow Up Appt 6 months Follow Up Appt 6 months [facility] Work Phone: Start: 03-26-2012 End: 01-29-2013 Lipid panel [AGGREGATE] *Lipid Profile [facility] Work Phone: Start: 02-14-2012 End: 02-24-2012 *Hepatic Function Panel *Hepatic Function Panel [facility] Work Phone: Start: 02-14-2012 End: 02-24-2012 Lipid panel [AGGREGATE] *Lipid Profile [facility] Work Phone: Start: 02-14-2012 End: 02-24-2012 *Hepatic Function Panel *Hepatic Function Panel [facility] Work Phone: Start: 02-14-2012 End: 02-24-2012 Lipid panel [AGGREGATE] *Lipid Profile [facility] Work Phone: Start: 09-09-2011 End: 09-09-2011 Ecg routine ecg w/least 12 lds w/i&r EKG (In office) [facility] Work Phone: Start: 09-09-2011 End: 09-14-2011 Follow Up Appt 6 months Follow Up Appt 6 months [facility] Work Phone: Start: 09-09-2011 End: 09-14-2011 Follow Up Appt Other Follow Up Appt Other [facility] Work Phone: Start: 09-09-2011 End: 09-09-2011 Electrocardiogram, complete EKG (In office) [facility] Work Phone: Start: 09-09-2011 End: 09-14-2011 Follow Up Appt 6 months Follow Up Appt 6 months [facility] Work Phone: Start: 09-09-2011 End: 09-14-2011 Follow Up Appt Other Follow Up Appt Other [facility] Work Phone: Patient Education [facility] Work Phone: Additional Source Comments FOR RECORDS PERTAINING TO PATIENTS WHO ARE OR HAVE BEEN ENROLLED IN A CHEMICAL DEPENDENCY/SUBSTANCEABUSE PROGRAM, SOME INFORMATION MAY BE OMITTED. This clinical summary was aggregated from multiple sources. Caution should be exercised in using it in the provision of clinical care. This summary normalizes information from multiple sources, and as a consequence, information in this document may materially change the coding, format and clinical context of patient data. In addition, data may be omitted in some cases. CLINICAL DECISIONS SHOULD BE BASED ON THE PRIMARY CLINICAL RECORDS. [facility]. provides no warranty or guarantee of the accuracy or completeness of information in this document.
[2023-09-29 10:01] LABS: AST(SGOT) 31 U/L (15-37); Alanine Aminotransfer ALT/SGPT 74 U/L (16-61); Albumin, Serum 3.8 g/dL (3.2-5.0); Alkaline Phosphatase 76 U/L (45-117); Cholesterol 146 mg/dL (200); Globulin 3.1 g/dL (2.2-4.2); High Density Lipoprotein 35 mg/dL; PSA,Total - Annual Screen 1.69 ng/mL (0.00-4.00); Protein, Total 6.9 g/dL (6.4-8.2); Triglycerides 169 mg/dL; Very Low Density Lipoprotein 34 mg/dL (5-40)
== END | disposition home or self-care (01) ==
LOC: LAB 07:47
PROVIDERS: Nurse Practitioner Gerontology; PCP Family Medicine; Referring Provider Family Medicine; Visit Provider Family Medicine
DX: Z12.5 Encounter for screening for malignant neoplasm of prostate (principal); N52.9 Male erectile dysfunction, unspecified; E78.2 Mixed hyperlipidemia
CPT/HCPCS: 36415; 80061; 80076; 84153; 84403; G0103

== ENCOUNTER → 2023-10-18 | Outpatient (CLI) | payer OTHER, SELFPAY ==
[2022-06-28 11:14] VITALS: BMI 31.7
[2023-10-18 15:17] LABS: Absolute Lymphocyte Count 1.94 X10^3/uL (0.83-4.51); Absolute Neutrophil Count 3.1 X10^3/uL (2.0-7.7); Basophil# 0.02 X10^3/uL; Basophil% 0.4 % (0-1); Eosinophil# 0.09 X10^3/uL; Eosinophils% 1.6 % (0-5); Hematocrit 48.6 % (40-54); Lymphocyte # 1.94 X10^3/ul (0.83-4.51); Mean Corpuscular Hgb 31.4 pg (27.0-32.0); Mean Corpuscular Volume 89.7 fL (80-94); Mean Platelet Vol. 10.3 fl (6.2-12.0); Monocyte# 0.58 X10^3/uL; Monocyte% 10.2 % (0-10); NRBC Flagged by Analyzer 0 % (0-5); Neutrophil # 3.05 X10^3/uL (2.7-7.7); Neutrophil % 53.4 % (47-70); Platelet Count 173 K/mm3 (150-450); RBC Distribution Width CV 11.7 % (11.6-14.6); RBC Distribution Width SD 37.9 fl (35.1-43.9); Red Blood Count 5.42 M/mm3 (4.6-6.2); White Blood Count 5.7 K/mm3 (4.4-11.0)
[2023-10-18 15:24] LABS: Prothrombin Time (Protime)PT. 13.1 SECONDS (11.7-14.9)
[2023-10-18 15:36] LABS: AST(SGOT) 41 U/L (15-37); Alanine Aminotransfer ALT/SGPT 82 U/L (16-61); Albumin, Serum 3.7 g/dL (3.2-5.0); Alkaline Phosphatase 77 U/L (45-117); Bilirubin, Direct 0.18 mg/dL (0.00-0.30); Globulin 3.1 g/dL (2.2-4.2); Protein, Total 6.8 g/dL (6.4-8.2)
== END | disposition home or self-care (01) ==
LOC: MTLAB 11:27
PROVIDERS: PCP Family Medicine; Referring Provider Family Medicine; Visit Provider Family Medicine
DX: D69.2 Other nonthrombocytopenic purpura (principal)
CPT/HCPCS: 36415; 80076; 85025; 85610; 85730

== ENCOUNTER 2023-11-13 08:20 | Outpatient (RCR) | payer OTHER, SELFPAY ==
[2022-06-28 11:14] VITALS: BMI 31.7
== END 2023-11-28 23:59 ==
LOC: NS 08:20
PROVIDERS: PCP Family Medicine; Referring Provider Family Medicine; Visit Provider Family Medicine
DX: Z71.3 Dietary counseling and surveillance (principal); E66.9 Obesity, unspecified; I10 Essential (primary) hypertension; E78.00 Pure hypercholesterolemia, unspecified; Z68.33 Body mass index [BMI] 33.0-33.9, adult
CPT/HCPCS: 97802

== ENCOUNTER 2023-12-26 16:30 | Outpatient (RCR) | payer OTHER, SELFPAY ==
[2022-06-28 11:14] VITALS: BMI 31.7
== END 2023-12-29 23:59 ==
LOC: NS 16:30
PROVIDERS: PCP Family Medicine; Referring Provider Family Medicine; Visit Provider Family Medicine
DX: Z71.3 Dietary counseling and surveillance (principal); I10 Essential (primary) hypertension; E78.00 Pure hypercholesterolemia, unspecified; E66.9 Obesity, unspecified; Z68.33 Body mass index [BMI] 33.0-33.9, adult
CPT/HCPCS: 97803

== ENCOUNTER 2024-01-15 16:08 | Outpatient (RCR) | payer OTHER, SELFPAY ==
[2022-06-28 11:14] VITALS: BMI 31.7
== END 2024-01-28 23:59 ==
LOC: NS 16:08
PROVIDERS: PCP Family Medicine; Referring Provider Family Medicine; Visit Provider Family Medicine
DX: Z71.3 Dietary counseling and surveillance (principal); E78.00 Pure hypercholesterolemia, unspecified; I10 Essential (primary) hypertension; E66.9 Obesity, unspecified; Z68.33 Body mass index [BMI] 33.0-33.9, adult
CPT/HCPCS: 97803

== ENCOUNTER 2024-03-11 16:19 | Outpatient (RCR) | payer OTHER, SELFPAY ==
[2022-06-28 11:14] VITALS: BMI 31.7
== END 2024-03-30 23:59 ==
LOC: NS 16:19
PROVIDERS: PCP Family Medicine; Referring Provider Family Medicine; Visit Provider Family Medicine
DX: Z71.3 Dietary counseling and surveillance (principal); I10 Essential (primary) hypertension; E78.00 Pure hypercholesterolemia, unspecified; E66.9 Obesity, unspecified; Z68.33 Body mass index [BMI] 33.0-33.9, adult
CPT/HCPCS: 97803

== ENCOUNTER → 2024-11-27 | Outpatient (CLI) | payer OTHER, SELFPAY ==
[2022-06-28 11:14] VITALS: BMI 31.7
[2024-11-27 09:13] LABS: Hemoglobin A1c 6.6 % (<=5.6)
[2024-11-27 09:20] LABS: PSA,Total - Annual Screen 1.38 ng/mL (0.02-4.00)
[2024-11-27 09:24] LABS: Anion Gap 12 (5-15); BUN 10 mg/dL (4-19); BUN/Creat Ratio 10.9 RATIO (10-20); Calcium,Total 8.9 mg/dL (7.6-11.0); Carbon Dioxide 23.3 mmol/L (21.0-32.0); Chloride 104 mmol/L (98-108); Creatinine, Serum 0.88 mg/dL (0.70-1.20); EST Glomerular Filtration Rate 98 (>60); Glucose 144 mg/dL (70-99); Sodium Level 139 mmol/L (133-145)
[2024-11-27 10:31] LABS: AST(SGOT) 40 U/L (<=37); Alanine Aminotransfer ALT/SGPT 70 U/L (<=46); Albumin, Serum 4.2 g/dL (3.4-4.8); Alkaline Phosphatase 83 U/L (40-129); Bilirubin, Direct 0.28 mg/dL (0.00-0.30); Cholesterol 161 mg/dL (<=200); Globulin 2.4 g/dL (2.2-4.2); High Density Lipoprotein 29 mg/dL; Low Density Lipoprotein Calc. 87 mg/dL; Protein, Total 6.7 g/dL (5.9-8.4); Total Bilirubin 0.78 mg/dL (0.00-1.30); Triglycerides 223 mg/dL; Very Low Density Lipoprotein 45 mg/dL (5-40); cholesterol:hdl ratio screen 5.48
== END | disposition home or self-care (01) ==
PROVIDERS: PCP Family Medicine; Referring Provider Nurse Practitioner Gerontology; Visit Provider Nurse Practitioner Gerontology
DX: Z12.5 Encounter for screening for malignant neoplasm of prostate (principal); I10 Essential (primary) hypertension; R73.01 Impaired fasting glucose
CPT/HCPCS: 36415; 80048; 80061; 80076; 83036; 84153; G0103

== ENCOUNTER → 2024-12-13 | Outpatient (CLI) | payer OTHER, SELFPAY ==
[2022-06-28 11:14] VITALS: BMI 31.7
--- NOTE | 2024-12-16 09:04 | STRESSREP_ITS ---
Stress Test Report Date: 12/13/2024 Procedure: Exercise tolerance test/imaging study Indications: Coronary artery disease Consent: Per the patient Procedure: The patient exercised on a Dariel protocol for 9 minutes achieving a peak heart rate of 142 bpm (89% predicted maximal heart rate) with a peak blood pressure 170/100 mmHg and a peak MET capacity of 10.4 METs. The baseline ECG demonstrated sinus rhythm with nonspecific ST changes. The peak exercise ECG failed to show any diagnostic ischemic changes. There were no cardiac dysrhythmias pretest, during exercise, or recovery. The functional capacity was considered very good. There was no complaint of chest discomfort during exercise or recovery. The examination was discontinued secondary to target heart rate being achieved. The patient was injected with 14.5 mCi of technetium 99m Cardiolite and subsequently rest SPECT Cardiolite nuclear imaging was obtained in the horizontal long, vertical long, and short axis views. Post-exercise, the patient was injected with 44.0 mCi of technetium 99m Cardiolite and subsequently stress SPECT Cardiolite nuclear imaging was obtained in the horizontal long, vertical long, and short axis views. A gated Cardiolite study at peak stress was obtained. Rest and stress SPECT Cardiolite nuclear imaging status post realignment, normalization, and attenuation correction, demonstrates the appearance of relative uniform tracer uptake and myocardial perfusion appearing within normal limits. There is end systolic thickening and brightening. The gated Cardiolite study demonstrates myocardial thickening and inward wall motion. The reported LVEF is 73%. Impression: 1. Technically adequate (percent predicted maximal heart rate greater than 85%) exercise tolerance test 2. Peak exercise ECG with no diagnostic ischemic changes 3. There were no cardiac dysrhythmias pretest, during exercise, or recovery 4. Rest and stress SPECT Cardiolite nuclear imaging demonstrate relative uniform tracer uptake and myocardial perfusion appearing within normal limits. 5. The gated Cardiolite study reports an LVEF of 73%. This note was generated with [employer] software. It may contain incorrect words, spelling, and punctuation that were not noted in checking the note before signing.
== END | disposition home or self-care (01) ==
LOC: CVS 07:12
PROVIDERS: PCP Family Medicine; Referring Provider Nurse Practitioner Gerontology; Visit Provider Nurse Practitioner Gerontology
DX: I25.10 Atherosclerotic heart disease of native coronary artery without angina pectoris (principal); Z95.5 Presence of coronary angioplasty implant and graft
CPT/HCPCS: 78452; 93017; A9500

== ENCOUNTER → 2025-05-05 | Outpatient (CLI) | payer OTHER, SELFPAY ==
[2022-06-28 11:14] VITALS: BMI 31.7
[2025-05-05 09:40] LABS: AST(SGOT) 37 U/L (<=37); Alanine Aminotransfer ALT/SGPT 62 U/L (<=46); Albumin, Serum 4.4 g/dL (3.4-4.8); Alkaline Phosphatase 83 U/L (40-129); Bilirubin, Direct 0.43 mg/dL (0.00-0.30); Cholesterol 163 mg/dL (<=200); Globulin 2.6 g/dL (2.2-4.2); Low Density Lipoprotein Calc. 90 mg/dL; Triglycerides 183 mg/dL; Very Low Density Lipoprotein 37 mg/dL (5-40); cholesterol:hdl ratio screen 4.53
== END | disposition home or self-care (01) ==
LOC: LAB 07:47
PROVIDERS: PCP Family Medicine; Referring Provider Nurse Practitioner Gerontology; Visit Provider Nurse Practitioner Gerontology
DX: E78.2 Mixed hyperlipidemia (principal)
CPT/HCPCS: 36415; 80061; 80076